=== PATIENT | male | born 1940 | race Caucasian/White ===

== ENCOUNTER 2018-01-19 09:31 | Outpatient (REF) | payer OTHER, SELFPAY ==
[2018-01-19 13:01] LABS: Anion Gap 6.2 mmol/L (3-11); BUN 18 mg/dL (7-18); CO2 32.8 mmol/L (21.0-32.0); CREATININE 0.96 mg/dL (0.70-1.30); Calcium 9.6 mg/dL (8.5-10.1); Chloride 101 mmol/L (98-107); Glucose 106 mg/dL (70-100); Magnesium 1.9 mg/dL (1.8-2.4); Sodium 140 mmol/L (136-145)
== END 2018-01-19 09:51 ==
LOC: NCHCN 09:31
PROVIDERS: PCP Family Medicine; Visit Provider Family Medicine
DX: I10 Essential (primary) hypertension (principal); E83.42 Hypomagnesemia
CPT/HCPCS: 80048; 83735

== ENCOUNTER 2018-01-21 14:34 | Outpatient (CLI) | payer OTHER, SELFPAY ==
--- NOTE | 2018-01-21 15:33 | DI.MRI_ITS ---
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 T 1, T 2 and STIR sagittal and T 1 and T 2 axial sequences were performed. Prominent sigmoid diverticulosis is incidentally noted. The prostate is noted to be quite enlarged and partially included on the images, measuring 7.5 cm. in cephalocaudad dimension by 3.7 cm. AP. The aorta is normal in diameter. At T 12-L 1, there are facet degenerative changes but no significant neural foraminal narrowing or central canal stenosis. There is minimal disc bulging. At L 1-2, there is minimal disc bulging and mild facet degenerative changes. At L 2-3, there is moderate broad based disc bulging as well as endplate osteophytes. There are facet degenerative changes which combine with the disc bulging to produce a mild degree of central canal stenosis as well as moderate bilateral neural foraminal narrowing. At L 3-4, there is moderate loss of disc height, endplate osteophytes and concentric disc bulging. There is a superimposed focal central disc protrusion which causes severe narrowing of the central canal. There are facet degenerative changes and ligamentous hypertrophy which also contribute to the central canal stenosis. There is moderate bilateral neural foraminal narrowing. At L 4-5, there is loss of disc height and broad based disc osteophytes. There is a small central and slightly right sided disc protrusion which combines with facet degenerative change and ligamentous hypertrophy to cause moderate central canal stenosis. There is mild neural foraminal narrowing. At L 5-S 1, there is disc bulging asymmetric toward the right. There are mild facet degenerative changes. There is mild right neural foraminal narrowing and no central canal stenosis. IMPRESSION: Multi level degenerative disc changes. There is a central disc herniation at L 3-4 causing severe central canal stenosis. There is a small central disc herniation at L 4-5 contributing to moderate central canal stenosis.
== END 2018-01-21 14:54 ==
PROVIDERS: PCP Family Medicine; Visit Provider Family Medicine
DX: M47.896 Other spondylosis, lumbar region (principal); M51.26 Other intervertebral disc displacement, lumbar region; M51.36 Other intervertebral disc degeneration, lumbar region; M48.07 Spinal stenosis, lumbosacral region; N40.0 Benign prostatic hyperplasia without lower urinary tract symptoms; K57.30 Diverticulosis of large intestine without perforation or abscess without bleeding
CPT/HCPCS: 72148

== ENCOUNTER 2018-05-31 15:01 | Outpatient (REF) | payer MEDICARE, OTHER, SELFPAY ==
[2018-05-31 18:15] LABS: HGB 14.5 g/dL (13.5-17.5); Mean Corp. HGB Concentration 34.5 g/dL (32.0-36.0); Mean Corpuscular Hemoglobin 31.5 pg (27.0-33.0); Mean Corpuscular Volume 91.1 fL (80-95); Mean Platelet Volume 9.9 fL (8.0-11.0); Platelet Count 323 x1000/uL (130-400); RBC 4.61 m/cumm (4.50-6.00); RBC Distribution Width 12.6 % (11.8-14.1); White Blood Cell Count 8.73 k/cumm (4.4-10.8)
[2018-05-31 18:28] LABS: Anion Gap 9.9 mmol/L (3-11); BUN 14 mg/dL (7-18); CO2 28.1 mmol/L (21.0-32.0); CREATININE 0.99 mg/dL (0.70-1.30); Calcium 8.9 mg/dL (8.5-10.1); Chloride 102 mmol/L (98-107); Glucose 101 mg/dL (70-100); Magnesium 1.8 mg/dL (1.8-2.4); Potassium 3.9 mmol/L (3.5-5.1); Sodium 140 mmol/L (136-145)
== END 2018-05-31 15:21 ==
LOC: NCHCN 15:01
PROVIDERS: PCP Family Medicine; Visit Provider Family Medicine
DX: E83.42 Hypomagnesemia (principal); Z01.818 Encounter for other preprocedural examination
CPT/HCPCS: 80048; 85027; 83735

== ENCOUNTER 2018-08-03 00:44 | Outpatient (CLI) | payer MEDICARE, OTHER, SELFPAY ==
[2018-08-03] MEDS: Normal Saline Flush 10 ML SYR IVP (10:56)
[2018-08-03] MEDS: Gadoterate meglumine 20 ML VIAL 18 ML IVP (10:57)
--- NOTE | 2018-08-03 11:28 | DI.MRI_ITS ---
SYMPTOMS/DIAGNOSIS: PARESTHESIA OF LOWER EXTREMITY, R20.2, LOWER EXTREMITY PAIN MRI OF THE LUMBAR SPINE: Comparison is made with January,. The patient is status post surgery at L4-5 and L5-S1. T1, T2, STIR sagittal and T1 and T2 axial and pre and post gadolinium T1 axial and sagittal sequences were performed. At L2-3, there is moderate loss of disc height, and broad-based disc bulging and small endplate osteophytes, as well as facet degenerative changes and ligamentous hypertrophy; the findings combine to produce moderate central canal stenosis and moderate neural foraminal narrowing. The central canal stenosis appears to have increased when compared with the previous exam. At L3-4, there has been decrease in size of the central disc herniation; however, a central disc protrusion does remain present. There is moderate to severe central canal stenosis, which appears improved when compared with the previous exam. Facet degenerative changes again contribute to bilateral neural foraminal narrowing. There has been no significant change in the small central disc protrusion at L4- 5, there is stable central canal stenosis and neural foraminal narrowing. The L5-S1 level is unremarkable. The conus medullaris appears intact. There is post surgical enhancement in the posterior soft tissues at the L4 and L5 levels. There is no evidence of osteomyelitis or discitis. Fluid is seen between the spinous processes of L3-L4 and L4-L5. There is high signal on T1 and T2 weighted images in the L4 vertebral body without abnormal STIR signal. The findings could represent underlying hemangioma or Paget's disease. The remaining vertebral bodies show mild red marrow reconversion, also unchanged. IMPRESSION: Mild improvement status post surgery and degree of central canal stenosis at L4-5. Stable appearance of L3-4 central disc protrusion and central canal stenosis. There is no evidence of a new disc herniation. There is enhancement at the postsurgical site.
== END 2018-08-03 01:04 ==
PROVIDERS: PCP Family Medicine; Visit Provider Physician Assistant Surgical
DX: R20.2 Paresthesia of skin (principal); M79.604 Pain in right leg; M79.605 Pain in left leg; Z98.890 Other specified postprocedural states
CPT/HCPCS: 72158

== ENCOUNTER 2019-11-15 18:33 | Outpatient (REF) | payer MEDICARE, OTHER, SELFPAY ==
[2019-11-15 18:47] LABS: Anion Gap 8.5 mmol/L (3-11); BUN 17 mg/dL (7-18); CO2 28.5 mmol/L (21.0-32.0); CREATININE 1.26 mg/dL (0.70-1.30); Calcium 9.3 mg/dL (8.5-10.1); Chloride 105 mmol/L (98-107); Estimated GFR 55.49 (mL/min/1.73m2); Glucose 89 mg/dL (74-106); Magnesium 2.1 mg/dL (1.8-2.4); Potassium 3.9 mmol/L (3.5-5.1); Sodium 142 mmol/L (136-145)
== END 2019-11-15 18:53 ==
LOC: NCHCN 18:33
PROVIDERS: PCP Family Medicine; Visit Provider Family Medicine
DX: E83.42 Hypomagnesemia (principal); I10 Essential (primary) hypertension
CPT/HCPCS: 80048; 83735

== ENCOUNTER 2020-04-04 17:27 | Inpatient (IN) | payer MEDICARE, OTHER, SELFPAY ==
[2020-04-04 17:36] VITALS: BP 149/114; PULSE 80; RESP 16; TEMP 36.6; O2SAT 96
--- NOTE | 2020-04-04 17:39 | ED.GENADUL_ITS ---
Discharge Plan Disposition Patient Disposition: [facility] INPATIENT Condition: Poor Discharge Details Chief Complaint: Abd Prob Clinical Impression: Diverticulitis of large intestine with perforation Admit Date/Time: 04/04/20 18:16 Admit Provider: Manjula Stahl Attending Provider: Manjula Stahl Primary Care Provider: Behzad Seals ED Provider: Karly Castro Medical Decision Making Patient is a pleasant 80-year-old gentleman presenting today with chief c omplaint of left lower quadrant pain. Patient was seen at urgent care today for the same. Patient was having the intermittent abdominal pain for the past few months. However, the pain has become more persistent in recent days. He denies any fevers or chills. No change in bowel or bladder habits. Denies any blood in his stool, blood in his urine or dark stools. No previous abdominal surgerie s. He has not had pain like this historically. Urgent care provider ordered outpatient labs and imaging. Was significant for white count of 10.8 and a CRP of 9.82. CT scan was obtained showing diverticulitis with question of focal perforation. Nurse partition evaluated or sent patient in here for admission and IV antibiotics. Has not received any antibiotics as of yet. Spoke with Dr. Stahl, general surgeon, who evaluated the patient feels that admission for IV antibiotics would be appropriate. Patient does have an allergy to penicillin. He reports a rash with penicillin. He states that he has had confirmatory allergy testing. We will place patient on Flagyl. Patient declines any analgesics. Will obtain rapid Covid testing. Patient admitted under the surgical service for continued treatment of his possibly ruptured diverticulitis. HPI General Mode of arrival: ambulatory . Date/Time Provider Initiated Documentation: 04/04/20 17:39 . Limitations to Documentation: no limitations . Information obtained by: patient and RN/MD (spoke with DISH WASHER who saw her initially ) . History of Present Illness 80 year old M presents to the emergency department with the chief complaint of LLQ pain, described as moderate, with intensity rated at 5. Quality is described as aching, and is localized to the abdomen. Patient reports no radiation. Patient started experiencing this month(s) and it has been intermittent (has been more persistent over the past few days). No relieving factors improve symptom(s), No exacerbating factors reported . Patient notes no other symptoms.. Patient did receive the following treatments prior to arrival, none Related Data Home Medications Medication Instructions Recorded Confirmed atorvastatin 40 mg PO .QHS 04/04/20 04/04/20 cholecalciferol (vitamin D3) 2,000 unit PO DAILY 04/04/20 04/04/20 [Vitamin D3] fluticasone propionate 1 spray INTRANASAL BID 04/04/20 04/04/20 lisinopril-hydrochlorothiazide 1 tab PO DAILY 04/04/20 04/04/20 magnesium, potassium aspartate 1 cap PO DAILY 04/04/20 04/04/20 [Potassium, Magnesium Aspartat] multivitamin,ts-cdtq-Vb-FA-min 1 tab PO DAILY 04/04/20 04/04/20 [Multivitamin And Mineral] omega-3 fatty acids 1,000 mg PO DAILY 04/04/20 04/04/20 primidone 100 mg PO .QHS 04/04/20 04/04/20 propranolol 60 mg PO DAILY 04/04/20 04/04/20 Allergies Allergy/AdvReac Type Severity Reaction Status Date / Time Penicillins Allergy Unverified 04/04/20 17:41 Review of Systems Constitutional Constitutional: Reports as per HPI, Denies chills, Denies fatigue, Denies fever(s) and Denies headache(s) ENT Ears, Nose, Mouth, and Throat: Denies headache(s) Cardiovascular Cardiovascular: Reports as per HPI, Denies chest pain and Denies dyspnea Respiratory Respiratory: Reports as per HPI, Denies cough and Denies dyspnea Gastrointestinal Gastrointestinal: Reports as per HPI Genitourinary Genitourinary: Denies system reviewed and no additional complaints, except as documented (patient denies any change in urinary habits) Musculoskeletal Musculoskeletal: Reports as per HPI and Denies back pain Integumentary/Breasts Skin/Breast: Reports as per HPI and Denies rash Neurologic Neurologic: Reports as per HPI and Denies headache(s) Endocrine Endocrine: Denies fatigue [facility] Medical History Diverticulosis Social History Smoking/Tobacco Use Status: Never Smoking risk assessment performed?: Yes Drug use: Never Substance use type: does not use Do you feel safe at home: Yes Do you feel safe in your relationship?: Yes Exam Const General: cooperative, healthy appearing, comfortable, no acute distress and well developed Nutritional Appearance: average body habitus and well nourished Orientation: alert and awake [facility] Head: normal to inspection Mouth: moist mucous membranes Resp Effort & Inspection: normal respiratory effort, able to speak in complete sentences and no respiratory distress Auscultation: clear to auscultation bilaterally, no rales, no rhonchi and no wheezes Cardio Rate: regular rate Rhythm: regular rhythm Heart Sounds: S1 normal and S2 normal GI Inspection: normal to inspection, no edema, non-distended and no visible herniation Palpation: soft, no hepatosplenomegaly, no guarding, no hernias, no pulsatile masses, not rigid, tender in the LLQ; not at McBurney's point and with no rebound tenderness and No ascites Percussion: normal to percussion Auscultation: normal bowel sounds Back/Spine/Pelvis Back: no CVA tenderness Skin General skin exam: no rashes or lesions noted Trauma: no lacerations or abrasions Neuro General: patient alert and patient awake Cognition: normal cognition Speech: speech normal Gait: normal gait Psych Appearance: grossly normal and well kempt Mental Status: mental status grossly normal Speech and Movement: speech and movement normal
--- NOTE | 2020-04-04 17:49 | HPE_ITS ---
Date of service: 04/04/20 Time of Service: 17:49 Assessment and Plan Assessment and plan (1) Diverticulitis of large intestine with perforation: Status: Acute Assessment and plan: 80 year old male with 1 week history of LLQ pain that has been getting worse. He was seen in the [facility] and sent for a CT [place] and labs. CT scan revealed diverticulitis with possible small perforation which is contained. He also is noted to have an enlarged prostate. Will admit for IV antibiotics NPO IV hydration Nausea medication and pain medications Repeat labs in am I spent 35 minutes in reviewing the record, seeing the patient and documenting in the medical record. Qualifiers: Diverticulitis bleeding: without bleeding Qualified Code(s): K57.20 - Diverticulitis of large intestine with perforation and abscess without bleeding History of Present Illness History of Present Illness Chief Complaint: LLQ pain Consults Consult date: 04/04/20 Requesting physician: Karly Castro Narrative: .Mr. Orozco is a pleasant 80 year old male who was seen at [facility] today for ongoing abdominal pain. He states he has been having intermittent pain that over the last week has worsened. It was bad enough today that he went to the Urgent Care. They ordered labs which showed a mild increase in his WBC count, CRP was elevated at >9. CT scan was done and showed extensive divrticulosis with diverticulitis and possible contained perforation. I reviewed the outpatient labs and CT scan. He denies N/V. He denies chest pain. He is hypertensive in the ER. He has never had a colonoscopy before. He denies any other health issues. He does not take any medications. Review of Systems Constitutional Constitutional: Denies fatigue, Denies fever(s), Denies headache(s) and Denies weight loss Eyes Eyes: Denies change in vision ENT Ears, Nose, Mouth, and Throat: Denies change in voice, Denies headache(s) and Denies hoarseness Cardiovascular Cardiovascular: Denies chest pain, Denies irregular heart rhythm, Denies palpitations and Denies dyspnea Respiratory Respiratory: Denies cough and Denies dyspnea Gastrointestinal Gastrointestinal: Reports as per HPI, Denies dyspepsia and Denies heartburn Genitourinary Genitourinary: Reports system reviewed and no additional complaints, except as documented Musculoskeletal Musculoskeletal: Reports system reviewed and no additional complaints, except as documented Integumentary/Breasts Skin/Breast: Reports system reviewed and no additional complaints, except as documented Neurologic Neurologic: Reports system reviewed and no additional complaints, except as documented and Denies headache(s) Psychiatric Psychiatric: Reports system reviewed and no additional complaints, except as documented Endocrine Endocrine: Reports system reviewed and no additional complaints, except as documented, Denies fatigue and Denies palpitations [facility] Medical History (Updated 04/04/20 @ 17:56 by Manjula Stahl MD) Diverticulosis Social History Smoking/Tobacco Use Status: Never Smoking risk assessment performed?: Yes Drug use: Never Substance use type: does not use Do you feel safe at home: Yes Do you feel safe in your relationship?: Yes Meds Home Medications and Allergies Home Medications Medication Instructions Recorded Confirmed Type atorvastatin 40 mg PO .QHS 04/04/20 04/04/20 History cholecalciferol (vitamin D3) 2,000 unit PO DAILY 04/04/20 04/04/20 History [Vitamin D3] fluticasone propionate 1 spray INTRANASAL BID 04/04/20 04/04/20 History lisinopril-hydrochlorothiazide 1 tab PO DAILY 04/04/20 04/04/20 History magnesium, potassium aspartate 1 cap PO DAILY 04/04/20 04/04/20 History [Potassium, Magnesium Aspartat] multivitamin,cl-cmoo-Vm-FA-min 1 tab PO DAILY 04/04/20 04/04/20 History [Multivitamin And Mineral] omega-3 fatty acids 1,000 mg PO DAILY 04/04/20 04/04/20 History primidone 100 mg PO .QHS 04/04/20 04/04/20 History propranolol 60 mg PO DAILY 04/04/20 04/04/20 History Allergies Allergy/AdvReac Type Severity Reaction Status Date / Time Penicillins Allergy Unverified 04/04/20 17:41 Exam Const General: cooperative, comfortable and no acute distress Orientation: alert and oriented x3 HENMT Head: normocephalic and atraumatic Resp Effort & Inspection: normal respiratory effort Auscultation: clear to auscultation bilaterally Cardio Rate: regular rate Rhythm: regular rhythm Heart Sounds: no gallops, no murmurs and no rubs GI Inspection: normal to inspection Palpation: soft, no hepatosplenomegaly and tender in the LLQ; with no rebound tenderness Auscultation: hypoactive bowel sounds Results Last Vital Signs Temp 97.9 F 04/04/20 17:36 Pulse 80 04/04/20 17:36 Resp 16 04/04/20 17:36 BP 149/114 H 04/04/20 17:36 Pulse Ox 96 04/04/20 17:36 COVID-19 Screening Have you, or household traveled for leisure in last 14 days?: No Had IN PERSON contact w/suspected or confirmed C-19 person: No
[2020-04-04 18:59] VITALS: BP 138/94; PULSE 68; RESP 18; TEMP 36.7; O2SAT 95
[2020-04-04] MEDS: Normal Saline 1,000 ML 1000 ML IV (19:08)
[2020-04-04] MEDS: CIPROFLOXACIN 400 MG/200 ML BAG 200 MG IVPB (19:09)
[2020-04-04 19:17] LABS: Influenza A PCR Negative (Negative); Influenza B PCR Negative (Negative); RSV PCR Negative (Negative)
[2020-04-04 19:31] LABS: COVID-19 PCR Negative (Negative)
[2020-04-04] MEDS: Normal Saline 1,000 ML 75 ML IV (20:34)
[2020-04-04] MEDS: metroNIDAZOLE 500 MG/100 ML BAG 100 MG IVPB (20:34)
[2020-04-04 20:52] VITALS: BP 173/92; PULSE 67; RESP 18; TEMP 36.9; O2SAT 94
[2020-04-04 21:00] VITALS: BP 173/92; PULSE 67; RESP 18; TEMP 36.9; O2SAT 94
[2020-04-04 22:41] VITALS: RESP 18; O2SAT 94
[2020-04-05] VITALS (10 sets, daily range): BP systolic 130–169; BP diastolic 70–97; PULSE 66–72; RESP 16–18; TEMP 36.7–37.1; O2SAT 95–97
[2020-04-05] MEDS: metroNIDAZOLE 500 MG/100 ML BAG 100 MG IVPB ×3 (03:31→19:41)
[2020-04-05] MEDS: CIPROFLOXACIN 400 MG/200 ML BAG 200 MG IVPB ×2 (05:39→18:36)
[2020-04-05 07:06] LABS: Abs Immature Grans 0.01 10^3/uL (0.0-0.06); Absolute Basophil Count 0.06 10^3/uL (0.0-0.2); Absolute Eosinophil Count 0.32 10^3/uL (0.0-0.7); Absolute Lymphocyte Count 2.11 10^3/uL (1.2-3.4); Absolute Monocyte Count 0.65 10^3/uL (0.1-0.8); Absolute Neutrophil Count 3.49 10^3/uL (1.2-6.7); Basophils % 0.9; Eosinophils % 4.8; HCT 40.1 % (40.0-50.0); HGB 13.8 g/dL (13.5-17.5); Immature Grans % 0.2; Lymphocytes % 31.8; MCH 31.9 pg (27.0-33.0); MCHC 34.4 % (32.0-36.0); MCV 92.8 fL (80-95); Monocytes % 9.8; Neutrophils % 52.5; Nucleated RBC 0 %; Platelet Count 269 10^3/uL (130-400); RBC 4.32 10^6/uL (4.36-5.78); RDW 11.9 % (11.8-14.1); RDW-SD 41.3 fL; WBC 6.64 10^3/uL (4.4-10.8)
--- NOTE | 2020-04-05 08:05 | PDOC.CMIN ---
- If Service Date Differs Date of service: 04/05/20 Time of Service: 08:05 Care Management Initial Assess REASON FOR HOSPITALIZATION:: Diverticulitis with microperforation PAST MEDICAL HISTORY/PAST SURGICAL HISTORY:: Diverticulosis PREVIOUS FUNCTIONAL STATUS/SOCIAL/FAMILY SUPPORTS:: Joesph resides with his , [facility] in [place], [place]. He is independent at baseline in the community. CURRENT FUNCTIONAL STATUS:: Joesph was sitting up on his bed when CM met with him. He reported things were going well at home, but they were all concerned about him being in the hospital. When you get to be my age people think you are going to . He reported feeling good about his health and only wishing he could be more active and be able to get out of [facility] for awhile. This is why he is advocating for getting his second dose of covid tomorrow so he can plan a trip out of town. ADVANCE DIRECTIVES:: None on file at [facility]. Has patient been provided with info about the portal/API?: Yes Did the patient sign up for the portal?: No CODE STATUS:: Full Code INSURANCE COVERAGE / FINANCIAL ISSUES:: [employer]. [employer]. [place] CURRENT HOME/COMMUNITY SERVICES/EQUIPMENT:: No current services or equipment. PRIMARY CARE PHYSICIAN:: Behzad Seals MD. POTENTIAL DISCHARGE NEEDS:: Follow up appointments. Joesph is due for his second Moderna dose tomorrow, 04/06/20 at [facility] in [facility]. CM outreached to the pharmacy who reported they were unable to release the dose to [facility]. CM emailed Dr. Lema, Dr. Orellana and Vaccine senior clinical data coordinator, Henry Coronel to inquire if additional dose would be available for Joesph for tomorrow. CM continues to follow. PATIENT/FAMILY EDUCATION NEEDS:: Review discharge instructions, discuss Ask Me Three. ANTICIPATED BARRIERS TO DISCHARGE:: None identified at this time. TRANSPORTATION:: Via private vehicle with his . PLAN:: Joesph remains on IV ABX and clear liquids at this time. He will return home when ready per MD, he will follow up with his PCP and plan of care as prescribed. He will transport via private vehicle with his , [facility]. CM continues to follow.
--- NOTE | 2020-04-05 08:56 | W.PM.PROGNOT ---
Date of Service Date of service: 04/05/20 Time of Service: 08:57 Assessment and Plan Assessment and plan (1) Diverticulitis of large intestine with perforation: Status: Acute Assessment and plan: Doing well on clear liquids and antibiotics. Labs are normal today. CRP is pending. Continue supportive care. Resume BP meds Patient is post to get his Covid vaccine tomorrow. He can still receive the vaccine. We will need to work out logistics. Qualifiers: Diverticulitis bleeding: without bleeding Qualified Code(s): K57.20 - Diverticulitis of large intestine with perforation and abscess without bleeding (2) HTN (hypertension): Status: Chronic (3) Insomnia: Status: Acute (4) Elevated cholesterol: Status: Chronic Subjective Subjective Interval history since last seen: Patient says he is feeling better today. He has minimal pain. He is tolerating clear liquids. He is passing gas but not had any stool. no headaches. No CP or SOB. no productive cough. no dysuria. no leg pain or swelling. Exam Const General: cooperative, healthy appearing, comfortable and no acute distress Nutritional Appearance: average body habitus Orientation: alert, awake and oriented x3 Other: No jaundice or thrush Resp Effort & Inspection: normal respiratory effort and able to speak in complete sentences Auscultation: clear to auscultation bilaterally, no rales, no rhonchi and no wheezes Cardio Palpation: normal PMI Rate: regular rate Other: No lower extremity edema swelling or pain. Objective Last Vital Signs Temp 36.7 C 04/05/20 07:51 Pulse 72 04/05/20 07:51 Resp 18 04/05/20 07:51 BP 160/92 H 04/05/20 07:52 Pulse Ox 96 04/05/20 07:51 Laboratory Results - last 24 hr 04/04/20 04/05/20 18:20 06:50 WBC 6.64 D RBC 4.32 L Hgb 13.8 Hct 40.1 MCV 92.8 MCH 31.9 MCHC 34.4 RDW 11.9 Plt Count 269 MPV 9.0 Immature Gran % 0.2 Neutrophils % 52.5 Lymphocytes % 31.8 Monocytes % 9.8 Eosinophils % 4.8 Basophils % 0.9 Nucleated RBC % 0 Absolute Neutrophils 3.49 Absolute Lymphocytes 2.11 Absolute Monocytes 0.65 Absolute Eosinophils 0.32 Absolute Basophils 0.06 COVID-19 Source Nasopharyx SARS-CoV-2 (PCR) Negative Influenza Type A (PCR) Negative Influenza Type B (PCR) Negative RSV (PCR) Negative
[2020-04-05] MEDS: Lisinopril 20 MG TAB PO (09:54)
[2020-04-05] MEDS: hydroCHLOROthiazide 12.5 MG TAB PO (09:55)
[2020-04-05] MEDS: Propranolol 60 MG CAPCR PO (10:35)
[2020-04-05 10:46] LABS: C-Reactive Protein 7.02 mg/dL (0.0-0.3)
--- NOTE | 2020-04-05 11:37 | CHAPLAIN ---
Joesph was reading the newspaper when I visited. He said he is feeling much better than yesterday. He's been in touch with his family by phone. He said they are more concerned than he is because they can't see him. I explained my role and offered support.
[2020-04-05] MEDS: Normal Saline 1,000 ML 75 ML IV (12:27)
[2020-04-06 00:30] VITALS: BP 167/83; PULSE 67; RESP 20; TEMP 36.5; O2SAT 94
[2020-04-06] MEDS: metroNIDAZOLE 500 MG/100 ML BAG 100 MG IVPB ×3 (03:36→20:26)
[2020-04-06] MEDS: Normal Saline 1,000 ML 75 ML IV (05:18)
[2020-04-06] MEDS: CIPROFLOXACIN 400 MG/200 ML BAG 200 MG IVPB ×2 (05:19→17:15)
[2020-04-06 07:38] VITALS: BP 170/101; PULSE 62; RESP 18; TEMP 37; O2SAT 96
[2020-04-06] MEDS: Propranolol 60 MG CAPCR PO (08:55)
[2020-04-06] MEDS: Lisinopril 20 MG TAB PO (08:55)
[2020-04-06] MEDS: hydroCHLOROthiazide 12.5 MG TAB PO (08:55)
[2020-04-06 08:59] LABS: C-Reactive Protein 2.98 mg/dL (0.0-0.3)
--- NOTE | 2020-04-06 11:14 | W.NUTRFU ---
Date of service: 04/06/20 Time of Service: 11:15 Nutritional Follow up NOTE: 80 year old male admitted with diverticulitis with perforation. BMI indicates mild obesity. PMH: HTN, HLD. CUrrently tolerating clear liquids, diet to be advanced per MD. Will continue to follow. Time Spent in Nutritional Counseling and Treatment: 0
--- NOTE | 2020-04-06 13:54 | W.PM.PROGNOT ---
Date of Service Date of service: 04/06/20 Time of Service: 13:55 Assessment and Plan Assessment and plan (1) Elevated cholesterol: Status: Chronic (2) Insomnia: Status: Acute (3) HTN (hypertension): Status: Chronic (4) Diverticulitis of large intestine with perforation: Status: Acute Assessment and plan: tolerating full liquids. no pain or fevers CRP 2.9 d/c home in am. full 7 days of abx. cipro/flagyl. will need a CE. (he has never had one before) low fiber diet supportive care Qualifiers: Diverticulitis bleeding: without bleeding Qualified Code(s): K57.20 - Diverticulitis of large intestine with perforation and abscess without bleeding (5) COVID-19 vaccine administered: Status: Acute Assessment and plan: pt received second dose today No reaction Subjective Subjective Interval history since last seen: pt is feeling better today. no pain. tolerating clears. Had some nausea this am. resolved this evening. He had a small soft, but formed brown BM. no headaches. No CP or SOB. no productive cough. no dysuria. no leg pain or swelling. He is hungry and would liek more to eat. We were able to get him his second covid vaccine today- no reactions so far. Exam HENMT Other: no thrush.no jaundice/sclera clear Resp Effort & Inspection: normal respiratory effort and able to speak in complete sentences Auscultation: clear to auscultation bilaterally Cardio Rate: regular rate Rhythm: regular rhythm GI Palpation: soft Auscultation: normal bowel sounds Other: no pain Neuro General: patient alert, patient awake, patient oriented x3 and oriented Cranial Nerves: CN's II-XI intact bilaterally Cognition: normal cognition Extrem General: no clubbing, cyanosis or edema Objective Last Vital Signs Temp 37.0 C 04/06/20 07:38 Pulse 62 04/06/20 07:38 Resp 18 04/06/20 07:38 BP 170/101 H 04/06/20 07:38 Pulse Ox 96 04/06/20 07:38 Laboratory Results - last 24 hr 04/06/20 08:30 C-Reactive Protein 2.98 H
[2020-04-06 15:17] VITALS: BP 125/70; PULSE 56; RESP 16; TEMP 36.6; O2SAT 97
--- NOTE | 2020-04-06 16:45 | PDOC.CMPRO ---
Care Management Progress Note S/O: Joesph was sitting up in his chair when CM met with him. He shared hopes for being able to return home tomorrow and to have his diet advanced as soon as possible. CM found Dr. Orellana who was entering the OR but provided verbal for MILO Cotton to advance diet to full liquid. CM notified [employer]xture Repairer of advancement and requested items to be brought to Joesph. CM supported coordination of 2nd moderna dose to arrive from [facility] to the [facility] to be labeled, confirmed and released for DOROTHEA Bianchi to provide vaccine to Joesph. CM continues to follow. A: 80 year old male admitted to [facility] 04/04/20 for Diverticulitis with microperforation P: Joesph will return home when ready per MD. Joesph remains on IV ABX and clear liquids at this time. He will return home when ready per MD, he will follow up with his PCP and plan of care as prescribed. He will transport via private vehicle with his , Emerald. CM continues to follow.
--- NOTE | 2020-04-06 19:55 | NUR.NOTE ---
Patient was able to receive his 2nd moderna Covid Vaccine. He signed the consent understood the risk and side effects. he was monitored for 15 minutes afterward for adverse effects, with none noted. His diet advanced to full liquids which was tolerated well by patient. He was IID by order of Dr. street. Patient to probably [place] home tomorrow. Nursing Note:
[2020-04-06] MEDS: Normal Saline Flush 10 ML SYR IVP (20:26)
--- NOTE | 2020-04-06 21:20 | W.PM.DS.N ---
Date of service: 04/07/20 Time of Service: 12:00 DS: Diagnosis Discharge Diagnosis (1) Elevated cholesterol: Status: Chronic (2) Insomnia: Status: Acute (3) HTN (hypertension): Status: Chronic (4) Diverticulitis of large intestine with perforation: Status: Acute (5) COVID-19 vaccine administered: Status: Acute Discharge Plan Disposition Patient Disposition: HOME Condition: Good Discharge Details Reason For Visit: DIVERTICULITIS WITH MICROPERFORATION Admit Date/Time: 04/06/20 10:55 Admit Provider: Manjula Stahl Attending Provider: Manjula Stahl Primary Care Provider: Behzad Seals Kinder Meds and New Rx's Prescriptions: New ciprofloxacin HCl 500 mg tablet 500 mg PO Q12H 5 Days Qty: 10 RF: 0 metronidazole [Flagyl] 500 mg tablet 500 mg PO Q8H 5 Days Qty: 15 RF: 0 Continued atorvastatin 40 mg Tablet 40 mg PO .QHS RF: 0 primidone 50 mg Tablet 100 mg PO .QHS RF: 0 omega-3 fatty acids 1,000 mg Capsule 1,000 mg PO DAILY RF: 0 lisinopril-hydrochlorothiazide 20-12.5 mg Tablet 1 tab PO DAILY RF: 0 propranolol 60 mg Capsule,Extended Release 24 Hr 60 mg PO DAILY RF: 0 magnesium, potassium aspartate 250-250 mg Capsule 1 cap PO DAILY RF: 0 fluticasone propionate 50 mcg/actuation [place],Suspension 1 spray INTRANASAL BID RF: 0 multivitamin,vg-yciv-Qy-FA-min Tablet 1 tab PO DAILY RF: 0 cholecalciferol (vitamin D3) [Vitamin D3] 50 mcg (2,000 unit) Capsule 2,000 unit PO DAILY RF: 0 Discharge Instructions Instructions: Diverticulitis (GEN), Diverticulosis (GEN), Low Fiber Diet (GEN) Additional Instructions: Called: [phone] on Thursday to make a follow-up appointment with general surgery -no straining to move bowels -Azerbaijani yogurt daily if you do not move your bowels daily take a dose of OTC milk of magnesia -It is ok to shower. -Protein supplements daily. You may find that your appetite is smaller. Eat 3-6 small meals throughout the day. It is important to drink lots of water after surgery, 6-10 glasses a day. -If you were given an incentive spirometry (breathing door to door selling agent?), continue to do this 10x/hour while awake. -We do want you up walking, at least 5-6 times per day. This is very important to prevent pneumonia and blood clots. You can climb stairs, take them slowly. -No lifting over 5 pounds. -You may find that you are very tired after surgery- this is normal. -please do not smoke for a minimum of 72 hours after surgery. Stand Alone Forms: Nursing Discharge Form Referrals: Sharona Orellana, [OSTEOPATHIC DOCTOR] - Activity:: no strenuous activity Equipment/Supplies:: No Equipment Needed Diet:: low fiber x 1 week Discharge Orders Discharge Orders: Discharge Order (Routine); Ordered 04/07/20 Ordered By: Sharona Orellana DS: Summary Time Spent with Patient providing and/or coordinating discharge services: Greater than 30 minutes Status at Discharge Functional status at discharge: independent ambulation Overall status at discharge: patient is back to baseline Mental Status: mental status grossly normal Speech and Movement: speech and movement normal Mood: congruent mood Affect: normal affect Exam Psych Mental Status: mental status grossly normal Speech and Movement: speech and movement normal Mood: congruent mood Affect: normal affect DS: Data Vitals/I&O Vitals and I&O: Vital Signs Temperature 36.6 C 04/06/20 15:17 Temperature Source Tympanic 04/06/20 15:17 Pulse 56 L 04/06/20 15:17 Pulse Rhythm Regular 04/06/20 16:22 Respiratory Rate 16 04/06/20 15:17 Respiratory Effort 04/06/20 16:22 Respiratory Depth Normal 04/06/20 16:22 Respiratory Pattern Normal 04/06/20 16:22 Blood Pressure 125/70 04/06/20 15:17 Blood Pressure Position Sitting 04/04/20 17:36 Pulse Oximetry 97 04/06/20 15:17 Oxygen Delivery Method Room Air 04/06/20 15:17 Oxygen Flow Rate 0 04/06/20 15:17 Pain Level 0 04/06/20 15:17 Comment 04/05/20 03:54 Intake & Output 04/05/20 04/06/20 04/06/20 23:59 11:59 23:59 Intake Total 1630 / 3500 2460 / 3560 1100 / 3560 Output Total 1500 / 2500 1100 / 1100 Balance 130 / 1000 1360 / 2460 1100 / 2460 Intake: IV 400 / 1700 1300 / 2400 1100 / 2400 Oral 1230 / 1800 1160 / 1160 Output: Urine 1500 / 2500 1100 / 1100 Other: Urine Color Yellow Yellow Urine Appearance Clear Clear Clear Urine Odor None Stool Size Small Stool Characteristics Liquid Voiding Methods Toilet Toilet Toilet Urinal Urinal Data Completed and Pending Labs on day of discharge: Labs from last 24 hours 04/06/20 08:30 C-Reactive Protein 2.98 H [facility] Medical History (Updated 04/06/20 @ 21:22 by Sharona Orellana DO) Diverticulosis Elevated cholesterol HTN (hypertension) Insomnia Social History Smoking/Tobacco Use Status: Never Smoking risk assessment performed?: Yes Drug use: Never Substance use type: does not use Do you feel safe at home: Yes Do you feel safe in your relationship?: Yes
[2020-04-06 23:23] VITALS: BP 126/76; PULSE 62; RESP 18; TEMP 36.7; O2SAT 95
[2020-04-07] MEDS: Normal Saline Flush 10 ML SYR IVP ×2 (04:16→08:08)
[2020-04-07] MEDS: metroNIDAZOLE 500 MG/100 ML BAG 100 MG IVPB ×2 (04:17→11:52)
[2020-04-07] MEDS: CIPROFLOXACIN 400 MG/200 ML BAG 200 MG IVPB (05:33)
[2020-04-07 06:24] VITALS: BP 130/90; PULSE 51; RESP 18; TEMP 36.6; O2SAT 93
[2020-04-07 07:25] VITALS: BP 140/96; PULSE 55; RESP 17; TEMP 36.4; O2SAT 95
[2020-04-07] MEDS: Lisinopril 20 MG TAB PO (08:07)
[2020-04-07] MEDS: hydroCHLOROthiazide 12.5 MG TAB PO (08:07)
[2020-04-07] MEDS: Propranolol 60 MG CAPCR PO (08:07)
--- NOTE | 2020-04-07 18:25 | PDOC.CMDIS ---
- If Service Date Differs Date of service: 04/07/20 Time of Service: 18:25 LACE Index Scoring Tool - Questions: Length of Stay (in days): 3 Acuity (Admit via E.D.?): Yes E.D. Visits: 1 - Answers: Total Score: 7 Risk of Readmission: Low Risk Care Management Discharge Reason for Hospitalization: Diverticulitis with microperforation Discharge Plan: Joesph will return home today with no additional services. He will be transported via private vehicle by family. He will follow up with his PCP and discharge plan of care. Patient/Family Education Needs: Review discharge instructions regarding activity levels and medications, discussion of self care needs including ask me three and goals of care.
== END 2020-04-07 13:30 | disposition home or self-care (01) | DRG 392 ==
LOC: ER 18:52 → MS 19:19
PROVIDERS: Surgery; Admitting Provider Surgery; Emergency Provider Physician Assistant; PCP Family Medicine; Visit Provider Surgery
DX: K57.20 Diverticulitis of large intestine with perforation and abscess without bleeding (principal); I10 Essential (primary) hypertension; G47.00 Insomnia, unspecified; Z23 Encounter for immunization; E78.00 Pure hypercholesterolemia, unspecified
CPT/HCPCS: 36415; 80048; 85027; 96361; 96365; 99220; 99223; 99224; 99231; 99239; 99285; 74177; 85025; 86140; 94640; 94667; 99284; J0744; J3490

== ENCOUNTER 2020-04-04 19:18 | Outpatient (CLI) | payer MEDICARE, OTHER, SELFPAY ==
--- NOTE | 2020-04-04 10:30 | DI.CT_ITS ---
EXAM: CT ABDOMEN PELVIS W CLINICAL HISTORY: LLQ ABD PAIN R10.32, R/O DIVERTICULITIS. TECHNIQUE: Imaging Protocol: Axial computed tomography images with coronal and sagittal reformatted images were created and reviewed CONTRAST MATERIAL: Intravenous: Omnipaque 100cc Oral: None COMPARISON: No exams were available for comparison FINDINGS: VISUALIZED LUNG BASES: No nodules nor pleural effusions evident. ABDOMEN: There is no ascites. LIVER: There are no obvious focal hepatic lesions evident . GALLBLADDER/BILIARY: No obvious gallbladder pathology. CBD is not dilated. PANCREAS: No evidence of pancreatic mass nor dilatation of the pancreatic duct. SPLEEN: Spleen is not enlarged. No obvious intrasplenic lesions. Splenic and portal veins are paten t. ADRENALS: There are no significant adrenal masses. KIDNEYS:No cysts evident. No solid renal masses. No calculi nor hydronephrosis.. ABDOMINAL AORTA: There is mild fusiform dilatation of the infrarenal abdominal aorta with maximum ext ernal diameter of 2 point 8 cm. There is also mild arterial megaly of the common iliac arteries. LYMPH NODES:There is no retroperitineal nor paraaortic adenopathy. ABDOMINAL WALL/GI: No evidence of significant anterior abdominal wall hernia. No bowel obstruction. PELVIS: GI: No evidence of appendicitis.There is diffuse thickening of the sigmoid with extensive diverticulo sis. There is evidence of acute diverticulitis in the sigmoid focal perforation. No abscess at this time. LYMPH NODES: There is no intrapelvic nor inguinal adenopathy. REPRODUCTIVE: Prostate gland is grossly enlarged. URINARY BLADDER: Urinary bladder wall is diffusely thickened but the bladder is not distended and the re are no diverticuli evident. OSSEOUS: There is a benign intraosseous hemangioma noted in the L4 vertebral body. There are no lyti c osseous lesions evident. IMPRESSION: 1. Main finding here is acute diverticulitis of the sigmoid superimposed upon extensive diverticulos is. There appears to be focal perforation. High risk for future abscess development. Aggressive th erapy recommended. 2. No evidence of appendicitis. 3. Grossly enlarged prostate gland. No bladder distension evident. There is no air-gas within the u rinary bladder lumen to suggest fistulous communication from the sigmoid. 4. There is no air-gas within the portal venous system. No evidence of intrahepatic abscess. RADIATION DOSE DELIVERED: 1,022.92mGy.cm Total DLP DATA REPOSITORY: All CT scans at this facility are submitted to the National Radiology Data Registry (NRDR) Dose Index Registry (DIR) with the [employer] (ACR). RADIATION OPTIMIZATION: All CT scans at this facility use at least one of these dose optimization te chniques: automated exposure control; mA and/or kV adjustment per patient size (includes targeted exa ms where dose is matched to clinical indication); or iterative reconstruction.
[2020-04-04 11:34] LABS: HCT 43.5 % (40.0-50.0); HGB 14.8 g/dL (13.5-17.5); MCH 31.7 pg (27.0-33.0); MCV 93.1 fL (80-95); MPV 9.1 fL (8.0-11.0); Platelet Count 308 10^3/uL (130-400); RBC 4.67 10^6/uL (4.36-5.78); RDW 12.1 % (11.8-14.1); RDW-SD 41.7 fL; WBC 10.84 10^3/uL (4.4-10.8)
[2020-04-04 11:41] LABS: Anion Gap 7.4 mmol/L (3-11); BUN 13 mg/dL (7-18); C-Reactive Protein 9.82 mg/dL (0.0-0.3); CO2 31.6 mmol/L (21.0-32.0); Calcium 8.8 mg/dL (8.5-10.1); Chloride 100 mmol/L (98-107); Glucose 102 mg/dL (74-106); Potassium 3.5 mmol/L (3.5-5.1); Sodium 139 mmol/L (136-145)
[2020-04-04] MEDS: Omnipaque 350 MG/ML 100 ML BTL IJ (13:03)
== END 2020-04-04 19:19 ==
LOC: DI 19:19
PROVIDERS: PCP Family Medicine; Visit Provider Nurse Practitioner Family
DX: R10.32 Left lower quadrant pain (principal); K57.30 Diverticulosis of large intestine without perforation or abscess without bleeding; K57.32 Diverticulitis of large intestine without perforation or abscess without bleeding; N40.0 Benign prostatic hyperplasia without lower urinary tract symptoms
CPT/HCPCS: 80048; 85027; 74177; 86140; J3490

== ENCOUNTER → 2020-04-23 09:36 | Outpatient (BNVA) | payer MEDICARE, OTHER, SELFPAY | PROVIDERS: PCP Family Medicine; Referring Provider Family Medicine; Visit Provider Surgery | DX: K57.20 Diverticulitis of large intestine with perforation and abscess without bleeding (principal); I10 Essential (primary) hypertension; G47.00 Insomnia, unspecified; E78.00 Pure hypercholesterolemia, unspecified; Z23 Encounter for immunization | CPT/HCPCS: 99212; 99213 ==

== ENCOUNTER 2020-08-11 11:51 | Emergency (ER) | payer MEDICARE, OTHER, SELFPAY ==
[2020-08-11 11:54] VITALS: BP 167/89; RESP 68; TEMP 36.2; O2SAT 94
[2020-08-11 12:06] VITALS: BP 129/65; PULSE 71; O2SAT 96
--- NOTE | 2020-08-11 12:07 | ED.GENADUL_ITS ---
Discharge Plan Disposition Patient Disposition: HOME Condition: Stable Discharge Details Clinical Impression: Diverticulitis Primary Care Provider: Behzad Seals ED Provider: Karly Castro Home Meds and New Rx's Prescriptions: New ciprofloxacin HCl [Cipro] 500 mg tablet 500 mg PO BID Qty: 14 RF: 0 metronidazole 500 mg tablet 500 mg PO TID 7 Days Qty: 21 RF: 0 Continued primidone 50 mg Tablet 100 mg PO .QHS RF: 0 omega-3 fatty acids 1,000 mg Capsule 1,000 mg PO DAILY RF: 0 lisinopril-hydrochlorothiazide 20-12.5 mg Tablet 1 tab PO DAILY RF: 0 propranolol 60 mg Capsule,Extended Release 24 Hr 60 mg PO DAILY RF: 0 magnesium, potassium aspartate 250-250 mg Capsule 1 cap PO DAILY RF: 0 multivitamin,ot-wyvm-Wp-FA-min Tablet 1 tab PO DAILY RF: 0 cholecalciferol (vitamin D3) [Vitamin D3] 50 mcg (2,000 unit) Capsule 2,000 unit PO DAILY RF: 0 Discharge Instructions Instructions: Diverticulitis (ED), Diverticulitis Diet (ED) Additional Instructions: It appears you have a recurrence of your diverticulitis on your imaging. Neal estephania, there is no evidence of perforation or complication as was found last time. Please encourage water intake. Please take the antibiotics as prescribed. These have been sent to your pharmacy. Even if symptoms improve, please take the entire course. Please begin the probiotics once again. If you develop fever/chills, inability stay hydrated, increased abdominal pain or other new/worsening symptoms, please return to the ED once again. Otherwise, please follow-up with your primary care next week for reevaluation. Referrals: Behzad Seals [Primary Care Provider] - Discharge Data Discharge Date/Time-TO BE ENTERED AT DEPARTURE: 08/11/20 14:30 Medical Decision Making Patient is a pleasant 80-year-old male presenting today with chief complaint of lower abdominal discomfort. Pain has been intermittent for the past 2 weeks. States that the pain worsens prior to urination or defecating. Relieved after these. Denies any fevers or chills. No nausea or vomiting. Denies any hematuria, melena or bright red blood per rectum. Patient was admitted here a few months ago for acute diverticulitis with associated perforation. States pain is similar but not nearly as significant. Denies increased frequency, urgency, dysuria. On exam, patient appears nontoxic. Lungs are clear, normal cardiac exam. He denies any chest pain or shortness of breath. Abdomen is benign. He does have some minimal discomfort elicited with lower abdominal pain, more so on the left than the right. Denies any testicular pain or penile pain. No CVA tenderness percussion. Differential at this time includes recurrent diverticulitis, UTI, nephrolithiasis versus other. Patient was seen at outpatient urgent care. Urine was completed without infection. Patient did not have any prostate tenderness on exam. With this, do not have indication at this time for prostatitis. Will obtain CT scan and blood work. Labs reviewed. Mild leukocytosis with a white count of 11. CMP without abnormality, lipase within normal limits. Urine significant for trace blood. Reviewed imaging, enlarge prostate is noted. Discussed with patient, as he has change in his discomfort with BM and urination, also considered possible prostatitis. Rectal exam performed. Patient ahs large prostate that is nontender. FINDINGS: Limitations: None. Liver: Normal. Gallbladder and bile ducts: Normal. Pancreas: Normal. Spleen: Normal. Adrenal glands: Normal. Kidneys and ureters: Normal. Stomach and bowel: Severe colonic diverticulosis. Thickening of the proximal sigmoid colon wall without masslike features is again noted, also now involving a short segment of the most distal descending colon. There is mild infiltration of the pericolonic fat. Overall, the findings are less prominent than those seen in March 2020 although some segments of sigmoid colon not previously involved are now affected. No pneumatosis. Unremarkable small bowel. Normal stomach. Appendix: Normal. Intraperitoneal space: No ascites, pneumoperitoneum or peritoneal lesion. Vasculature: Mild atherosclerosis of the abdominal aorta and branch vessels. The vessels have normal caliber and there are no occlusions, dissection or suspicious stenosis. Incidentally noted circumaortic left renal vein, a benign congenital variant. Mitral annulus and aortic valve calcification. Lymph nodes: None enlarged or otherwise suspicious. Urinary bladder: Normal. Reproductive: Symmetric prostate enlargement up to 6.1 x 5.5 cm measured in the axial plane. Bones/joints: No acute fracture or suspicious osseous lesion. Benign intraosseous hemangioma at L4. Soft tissues: No mass or abdominal hernia. IMPRESSION: 1. Mild, chronic recurrent uncomplicated diverticulitis seen in the setting of severe diffuse diverticulosis. 2. Incidental findings include chronic unchanged prostatomegaly and mild diffuse atherosclerosis. Discussed these findings with the patient. Encourage hydration. Will begin on oral antibiotics. Return precautions were discussed. He would follow-up with primary care next week for reevaluation. All questions concerns were addressed and he is in agreement this plan. HPI General Mode of arrival: ambulatory . Date/Time Provider Initiated Documentation: 08/11/20 12:02 . Limitations to Documentation: no limitations . Information obtained by: patient, RN notes reviewed and old records reviewed . History of Present Illness 80 year old M presents to the emergency department with the chief complaint of abdominal pain, described as mild, with intensity rated at 1. Quality is described as aching, and is localized to the abdomen. Patient reports no radiation. Patient started experiencing this week(s) and it has been intermittent. other things that improve symptom(s), (urination and defication ) Other factors that worsen symptoms (need to have BM or urinate) . Patient notes no other symptoms.. Patient did receive the following treatments prior to arrival, none Related Data Home Medications Medication Instructions Recorded Confirmed cholecalciferol (vitamin D3) 2,000 unit PO DAILY 04/04/20 08/11/20 [Vitamin D3] lisinopril-hydrochlorothiazide 1 tab PO DAILY 04/04/20 08/11/20 magnesium, potassium aspartate 1 cap PO DAILY 04/04/20 08/11/20 multivitamin,hi-ohxc-Pe-FA-min 1 tab PO DAILY 04/04/20 08/11/20 omega-3 fatty acids 1,000 mg PO DAILY 04/04/20 08/11/20 primidone 100 mg PO .QHS 04/04/20 08/11/20 propranolol 60 mg PO DAILY 04/04/20 08/11/20 ciprofloxacin HCl [Cipro] 500 mg PO BID #14 tab 08/11/20 metronidazole 500 mg PO TID 7 Days #21 tab 08/11/20 Previous Rx's Medication Instructions Recorded ciprofloxacin HCl [Cipro] 500 mg PO BID #14 tab 08/11/20 metronidazole 500 mg PO TID 7 Days #21 tab 08/11/20 Allergies Allergy/AdvReac Type Severity Reaction Status Date / Time Penicillins Allergy Unverified 04/23/20 09:39 General Stated Complaint: Abd Prob JEFFREY: 3 Review of Systems Constitutional Constitutional: Reports as per HPI, Denies chills, Denies fatigue, Denies fever(s) and Denies headache(s) ENT Ears, Nose, Mouth, and Throat: Denies headache(s) Cardiovascular Cardiovascular: Reports as per HPI, Denies chest pain and Denies dyspnea Respiratory Respiratory: Reports as per HPI, Denies cough and Denies dyspnea Gastrointestinal Gastrointestinal: Reports as per HPI Genitourinary Genitourinary: Denies system reviewed and no additional complaints, except as documented (patient denies any change in urinary habits) Musculoskeletal Musculoskeletal: Reports as per HPI and Denies back pain Integumentary/Breasts Skin/Breast: Reports as per HPI and Denies rash Neurologic Neurologic: Reports as per HPI and Denies headache(s) Endocrine Endocrine: Denies fatigue [facility] Medical History (Updated 08/11/20 @ 14:14 by OPAL Blanco) Diverticulosis Elevated cholesterol HTN (hypertension) Insomnia Social History Smoking/Tobacco Use Status: Never Smoking risk assessment performed?: Yes Drug use: Never Substance use type: does not use Do you feel safe at home: Yes Do you feel safe in your relationship?: Yes Exam Const General: cooperative, healthy appearing, comfortable, no acute distress and well developed Nutritional Appearance: average body habitus and well nourished Orientation: alert and awake HENNH Head: normal to inspection Mouth: moist mucous membranes Resp Effort & Inspection: normal respiratory effort, able to speak in complete sentences and no respiratory distress Auscultation: clear to auscultation bilaterally, no rales, no rhonchi and no wheezes Cardio Rate: regular rate Rhythm: regular rhythm Heart Sounds: S1 normal and S2 normal GI Inspection: normal to inspection, no edema and non-distended Palpation: soft, no hepatosplenomegaly, not firm, no guarding, no masses, no pulsatile masses, not rigid and tender in the LLQ (and low central abdomen) Percussion: normal to percussion Auscultation: normal bowel sounds Back/Spine/Pelvis Back: no CVA tenderness Skin General skin exam: no rashes or lesions noted Trauma: no lacerations or abrasions Neuro General: patient alert and patient awake Cognition: normal cognition Speech: speech normal Gait: normal gait Psych Appearance: grossly normal and well kempt Mental Status: mental status grossly normal Speech and Movement: speech and movement normal Course Vital Signs Vital signs: Vital Signs Temperature 36.2 C L 08/11/20 11:54 Respiratory Rate 68 H 08/11/20 11:54 Blood Pressure 167/89 H 08/11/20 11:54 Pulse Oximetry 94 08/11/20 11:54 Temperature 36.2 C L 08/11/20 11:54 Temperature Source Temporal Artery Scan 08/11/20 11:54 Respiratory Rate 68 H 08/11/20 11:54 Respiratory Effort 08/11/20 11:59 Blood Pressure 167/89 H 08/11/20 11:54 Blood Pressure Position Sitting 08/11/20 11:54 Pulse Oximetry 94 08/11/20 11:54 Oxygen Delivery Method Room Air 08/11/20 11:54 Oxygen Flow Rate 0 08/11/20 11:54 Pain Level 1 08/11/20 11:54
[2020-08-11] MEDS: Normal Saline 1,000 ML 1000 ML IV (12:22)
[2020-08-11 12:24] LABS: Abs Immature Grans 0.03 10^3/uL (0.0-0.06); Absolute Basophil Count 0.03 10^3/uL (0.0-0.2); Absolute Eosinophil Count 0.17 10^3/uL (0.0-0.7); Absolute Lymphocyte Count 2.43 10^3/uL (1.2-3.4); Basophils % 0.3; Eosinophils % 1.5; HCT 47.2 % (40.0-50.0); HGB 16.2 g/dL (13.5-17.5); Immature Grans % 0.3; Lymphocytes % 22.1; MCH 31.7 pg (27.0-33.0); MCHC 34.3 % (32.0-36.0); MCV 92.4 fL (80-95); Monocytes % 7.5; Neutrophils % 68.3; Nucleated RBC 0 %; Platelet Count 310 10^3/uL (130-400); RBC 5.11 10^6/uL (4.36-5.78); RDW 12.1 % (11.8-14.1); RDW-SD 41.4 fL
[2020-08-11 12:28] LABS: Absolute Monocyte Count 0.83 10^3/uL (0.1-0.8); Absolute Neutrophil Count 7.51 10^3/uL (1.2-6.7)
[2020-08-11 12:44] LABS: ALT 33 U/L (16-63); AST 20 U/L (15-37); Albumin 4.2 g/dL (3.4-5.0); Alkaline Phosphatase 72 U/L (46-116); Anion Gap 7.2 mmol/L (3-11); BUN 13 mg/dL (7-18); Bilirubin, Total 0.6 mg/dL (0.2-1.0); CO2 30.8 mmol/L (21.0-32.0); CREATININE 0.9 mg/dL (0.70-1.30); Calcium 9.5 mg/dL (8.5-10.1); Chloride 104 mmol/L (98-107); Glucose 95 mg/dL (74-106); Lipase 187 U/L (73-393); Magnesium 2.2 mg/dL (1.8-2.4); Sodium 142 mmol/L (136-145); Total Protein 8.2 g/dL (6.4-8.2)
[2020-08-11] MEDS: Omnipaque 350 MG/ML 100 ML BTL IJ (12:52)
[2020-08-11] MEDS: Normal Saline - Diluent 50 ML VIAL IV (12:53)
[2020-08-11 13:12] LABS: Bilirubin Negative (Negative); Blood Trace-intact (Negative); Clarity Clear (Clear); Glucose Negative (Negative); Ketones Negative (Negative); Leukocyte Esterase Negative (Negative); Nitrite Negative (Negative); Specific Gravity 1.025 (1.005-1.025); Urobilinogen 0.2 EU/dL (Up TO 0.2)
--- NOTE | 2020-08-11 13:15 | DI.CT_ITS ---
Exam(s) CT ABDOMEN PELVIS W EXAM: CT ABDOMEN PELVIS W CLINICAL HISTORY: suprapubic pain. TECHNIQUE: Imaging Protocol: Axial computed tomography images with coronal and sagittal reformatted images were created and reviewed CONTRAST MATERIAL: Intravenous: Omnipaque 350 Contrast volume:100 ml Oral: no CT CT ABDOMEN PELVIS W from 04/04/2020 FINDINGS: ABDOMEN: Lung Bases: Normal where visualized. Liver: Fatty infiltration.. No measurable mass. Gallbladder and biliary tract: No radiodense calculus or dilation. Pancreas: Normal density, no abnormal calcifications or inflammatory process. Spleen: Normal. Kidneys: Normal size, contour and axis. No radiodense stones or obstructive uropathy. No masses seen. Adrenal glands: No masses seen. Abdominal Aorta: Abdominal portion non-dilated. Circumaortic left renal vein. PELVIS: Bladder: Symmetric distention, no gross wall thickening. Bowel: Severe diverticulosis greatest in the sigmoid region. There is wall thickening and stranding of the proximal sigmoid, consistent with diverticulitis. No abscess, perforation, free fluid or free air. Normal appendix. No small bowel dilatation. Peritoneal cavity: No ascites, collection or mesenteric inflammatory response. Bones: Degenerative changes. Hemangioma L4. Reproductive organs: Markedly enlarged prostate. Lymph nodes: Unremarkable. Impression: Sigmoid diverticulitis. No perforation or abscess. Markedly enlarged prostate. RADIATION DOSE DELIVERED: 913.99mGy.cm Total DLP DATA REPOSITORY: All CT scans at this facility are submitted to the National Radiology Data Registry (NRDR) Dose Index Registry (DIR) with the [employer] (ACR). RADIATION OPTIMIZATION: All CT scans at this facility use at least one of these dose optimization te chniques: automated exposure control; mA and/or kV adjustment per patient size (includes targeted exa ms where dose is matched to clinical indication); or iterative reconstruction.
[2020-08-11 13:27] LABS: Bacteria Rare HPF (Negative); C & S Indicated? No; Casts Negative LPF (Negative); Crystals Negative HPF (Negative); Epithelial Cells Negative HPF (Negative); Mucus Negative (Negative); WBC Negative HPF (0-5)
[2020-08-11 13:45] VITALS: BP 163/76; PULSE 65; RESP 17; O2SAT 96
--- NOTE | 2020-08-11 13:55 | DI.VRAD_ITS ---
PROCEDURE INFORMATION: Exam: CT Abdomen And Pelvis With Contrast Exam date and time: 08/11/2020 12:18 PM Age: 80 years old Clinical indication: Abdominal pain; Tenderness; Lower; Patient HX: Suprapubic pain. TECHNIQUE: Imaging protocol: Computed tomography of the abdomen and pelvis with contrast. Radiation optimization: All CT scans at this facility use at least one of these dose optimization techniques: automated exposure control; mA and/or kV adjustment per patient size (includes targeted exams where dose is matched to clinical indication); or iterative reconstruction. Contrast material: OMNI-PAQUE 350; Contrast volume: 100 ml; Contrast route: INTRAVENOUS (IV); COMPARISON: CT ABDOMEN PELVIS W 04/04/2020 12:59 PM FINDINGS: Limitations: None. Liver: Normal. Gallbladder and bile ducts: Normal. Pancreas: Normal. Spleen: Normal. Adrenal glands: Normal. Kidneys and ureters: Normal. Stomach and bowel: Severe colonic diverticulosis. Thickening of the proximal sigmoid colon wall without masslike features is again noted, also now involving a short segment of the most distal descending colon. There is mild infiltration of the pericolonic fat. Overall, the findings are less prominent than those seen in March 2020 although some segments of sigmoid colon not previously involved are now affected. No pneumatosis. Unremarkable small bowel. Normal stomach. Appendix: Normal. Intraperitoneal space: No ascites, pneumoperitoneum or peritoneal lesion. Vasculature: Mild atherosclerosis of the abdominal aorta and branch vessels. The vessels have normal caliber and there are no occlusions, dissection or suspicious stenosis. Incidentally noted circumaortic left renal vein, a benign congenital variant. Mitral annulus and aortic valve calcification. Lymph nodes: None enlarged or otherwise suspicious. Urinary bladder: Normal. Reproductive: Symmetric prostate enlargement up to 6.1 x 5.5 cm measured in the axial plane. Bones/joints: No acute fracture or suspicious osseous lesion. Benign intraosseous hemangioma at L4. Soft tissues: No mass or abdominal hernia. IMPRESSION: 1. Mild, chronic recurrent uncomplicated diverticulitis seen in the setting of severe diffuse diverticulosis. 2. Incidental findings include chronic unchanged prostatomegaly and mild diffuse atherosclerosis. Dictated and Authenticated by: Morgan Celestin MD. Ordering:KENYON Brandt MD
== END 2020-08-11 14:30 | disposition home or self-care (01) ==
PROVIDERS: Emergency Provider Physician Assistant; PCP Family Medicine
DX: K57.92 Diverticulitis of intestine, part unspecified, without perforation or abscess without bleeding (principal)
CPT/HCPCS: 36415; 80053; 83690; 96360; 99285; 74177; 81003; 81015; 83735; 85025; 99283; J3490

== ENCOUNTER 2021-02-20 20:16 | Outpatient (REF) | payer MEDICARE, OTHER, SELFPAY ==
[2021-02-22 14:51] LABS: COVID-19 RT-PCR UVMMC Result Negative (Negative)
== END 2021-02-20 20:17 | disposition home or self-care (01) ==
LOC: NCHCN 20:16
PROVIDERS: PCP Family Medicine; Visit Provider Family Medicine
DX: Z20.822 Contact with and (suspected) exposure to COVID-19 (principal); R09.81 Nasal congestion
CPT/HCPCS: U0003; U0005

== ENCOUNTER 2021-03-26 19:18 | Outpatient (CLI) | payer MEDICARE, OTHER, SELFPAY ==
--- NOTE | 2021-03-26 11:55 | DI.RAD_ITS ---
Exam(s) XR SHOULDER LT COMPLETE 2+V EXAM: XR SHOULDER LT COMPLETE 2+V CLINICAL HISTORY: LT SHOULDER PAIN, MASS, M25,512, M25.812. TECHNIQUE: 2D digital imaging was performed. COMPARISON: No exams were available for comparison FINDINGS: There is no evidence of fracture or dislocation. No abnormal soft tissue calcifications. There are mild degenerative changes in the glenohumeral joint but no prominent joint space narrowing. Subacrom ial space is not diminished. Mild degenerative changes in the AC joint. Bone density is age-appropr iate. No osseous lesions. On the axial view there is a lucency anteriorly located, possibly soft tissue lesion such as lipoma. This measures approximately 6 x 4 cm. IMPRESSION: As above. If clinically indicated follow-up MRI can be performed DATA REPOSITORY: RADIATION DOSE DELIVERED:
== END 2021-03-26 19:38 ==
PROVIDERS: PCP Family Medicine; Visit Provider Nurse Practitioner Family
DX: M25.512 Pain in left shoulder (principal); M25.812 Other specified joint disorders, left shoulder; M79.89 Other specified soft tissue disorders
CPT/HCPCS: 73030

== ENCOUNTER → 2021-04-03 00:20 | Outpatient (CLI) | payer MEDICARE, OTHER, SELFPAY ==
--- NOTE | 2021-04-03 | DI.US_ITS ---
Exam(s) US SOFT TISSUE EXTREMITY EXAM: US SOFT TISSUE EXTREMITY CLINICAL HISTORY: MASS OF LEFT SHOULDER M25.812, SWELLING LEFT ARM R22.32. TECHNIQUE: Ultrasound was performed using standard protocol. COMPARISON: CR XR SHOULDER LT COMPLETE 2+V from 03/26/2021 FINDINGS: Sonographic assessment utilizing grayscale and color Doppler imaging was performed and targeted to th e area of clinical concern. There is a circumscribed homogeneous mildly hyperechoic lesion measuring 4 by 2.2 x 5.7 cm correspond ing to the palpable abnormality. 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 No invasive features are seen. M RI could be performed for further evaluation. DATA REPOSITORY:
== END ==
PROVIDERS: PCP Family Medicine; Visit Provider Nurse Practitioner Family
DX: R22.32 Localized swelling, mass and lump, left upper limb (principal)
CPT/HCPCS: 76881; 76882

== ENCOUNTER 2021-05-08 14:51 | Outpatient (REF) | payer MEDICARE, OTHER, SELFPAY ==
[2021-05-09 10:19] LABS: Lyme Ab w Rflx to Lyme Confirm Negative (Negative)
== END 2021-05-08 14:52 | disposition home or self-care (01) ==
LOC: NCHCN 14:51
PROVIDERS: PCP Family Medicine; Visit Provider Family Medicine
DX: R52 Pain, unspecified (principal)
CPT/HCPCS: 86618

== ENCOUNTER 2021-05-22 10:48 | Outpatient (REF) | payer MEDICARE, OTHER, SELFPAY ==
[2021-05-22 16:04] LABS: ESR 10 mm/hr (0-20)
== END 2021-05-22 10:49 | disposition home or self-care (01) ==
LOC: NCHCN 10:48
PROVIDERS: PCP Family Medicine; Visit Provider Family Medicine
DX: M25.50 Pain in unspecified joint (principal); M19.90 Unspecified osteoarthritis, unspecified site
CPT/HCPCS: 85652

== ENCOUNTER 2021-10-11 16:26 | Outpatient (REF) | payer MEDICARE, OTHER, SELFPAY ==
[2021-10-11 19:03] LABS: Anion Gap 7.3 mmol/L (3-11); BUN 22 mg/dL (7-18); CO2 29.7 mmol/L (21.0-32.0); CREATININE 1.1 mg/dL (0.70-1.30); Calcium 9.2 mg/dL (8.5-10.1); Chloride 103 mmol/L (98-107); Estimated GFR 68.29 (mL/min/1.73m2); Glucose 107 mg/dL (74-106); Potassium 3.7 mmol/L (3.5-5.1); Sodium 140 mmol/L (136-145)
[2021-10-14 09:28] LABS: Hepatitis C Ab w Rflx HCV PCR Negative (Negative)
== END 2021-10-11 16:27 | disposition home or self-care (01) ==
LOC: NCHCN 16:26
PROVIDERS: PCP Family Medicine; Visit Provider Family Medicine
DX: I10 Essential (primary) hypertension (principal); Z11.59 Encounter for screening for other viral diseases
CPT/HCPCS: 80048; 86803

== ENCOUNTER 2022-06-16 15:17 | Outpatient (CLI) | payer MEDICARE, OTHER, SELFPAY ==
--- NOTE | 2022-06-16 11:08 | DI.RAD_ITS ---
Exam(s) XR HUMERUS RT EXAM: XR HUMERUS RT CLINICAL HISTORY: RT UPPER ARM PAIN, M79.621. TECHNIQUE: 2D digital imaging was performed. COMPARISON: CR LEFT RIBS TO INCLUDE CXR from 12/11/2014 CR XR SHOULDER LT COMPLETE 2+V from 03/26/2021 CR XR ELBOW RT COMPLETE from 06/16/2022 FINDINGS: BONES: No acute fracture is present. There is a question of a small smoothly marginated lytic lesion in the proximal humeral shaft versus artifact. Measures approximately 15 x 7 millimeters. There are degenerative changes at the AC joint and glenohumeral joint.. SOFT TISSUE: Normal. IMPRESSION: Question of a 15 x 7 millimeter lytic lesion versus artifact in the upper humeral shaft. MRI could b e considered for further evaluation DATA REPOSITORY: RADIATION DOSE DELIVERED:
--- NOTE | 2022-06-16 11:09 | DI.RAD_ITS ---
Exam(s) XR ELBOW RT COMPLETE EXAM: XR ELBOW RT COMPLETE CLINICAL HISTORY: PAIN RT UPPER ARM, M79.621. TECHNIQUE: 2D digital imaging was performed. Three views. COMPARISON: No exams were available for comparison FINDINGS: BONES: No acute fracture is present. No bony destructive lesion is seen. Prominent enthesophyte tric eps insertion on the olecranon. JOINTS: Mild degenerative changes. The elbow is normally aligned. No joint effusion is seen. SOFT TISSUE: Normal. IMPRESSION: Prominent olecranon enthesophyte. No acute abnormality. DATA REPOSITORY: RADIATION DOSE DELIVERED:
== END 2022-06-16 15:37 ==
LOC: DI 15:19
PROVIDERS: PCP Family Medicine; Visit Provider Nurse Practitioner Family
DX: M79.621 Pain in right upper arm (principal); M25.721 Osteophyte, right elbow
CPT/HCPCS: 73060; 73080

== ENCOUNTER 2022-06-27 01:27 | Outpatient (CLI) | payer MEDICARE, OTHER, SELFPAY ==
[2022-06-27 12:55] LABS: CREATININE 1.3 mg/dL (0.70-1.30); Estimated GFR 55.53 (mL/min/1.73m2)
--- NOTE | 2022-06-27 13:00 | DI.MRI_ITS ---
Exam(s) MR UPPER EXTREMITY RT WO/W EXAM: MR UPPER EXTREMITY RT WO/W CLINICAL HISTORY: ABNL FINDINGS ON DI OF LIMBS, R93.6; RT UPPER ARM PAIN, M79.621 TECHNIQUE: Multiplanar multisequence MRI was performed without intravenous contrast. CONTRAST MATERIAL: IV Contrast: 19 mL of Dotarem contrast administered. COMPARISON: CR XR ELBOW RT COMPLETE from 06/16/2022 CR XR HUMERUS RT from 06/16/2022 FINDINGS: BONES/JOINTS: No fracture or contusion pattern. There is a nonenhancing 5 mm cortical cyst in the pro ximal humeral diaphysis corresponding to the finding seen on the x-ray. No associated soft tissue ma ss or marrow edema is seen. No other suspicious cystic or solid lesions are appreciated. Degenerati ve changes are seen at the glenohumeral and acromioclavicular joints. MUSCULOTENDINOUS STRUCTURES: The muscles show normal signal and size. No muscular fatty atrophy. SOFT TISSUES: Unremarkable. OTHER FINDINGS: Following contrast enhancement no enhancing lesions are appreciated. IMPRESSION: Benign appearing cortical cyst in the proximal right humerus. There is no associated enhancement, sof t tissue mass or marrow edema. DATA REPOSITORY:
[2022-06-27] MEDS: Normal Saline Flush 10 ML SYR IVP (13:42)
[2022-06-27] MEDS: Gadoterate meglumine 20 ML VIAL 19 ML IVP (13:43)
== END 2022-06-27 01:47 ==
LOC: DI 01:28
PROVIDERS: PCP Family Medicine; Visit Provider Nurse Practitioner Family
DX: M85.622 Other cyst of bone, left upper arm (principal)
CPT/HCPCS: 73220; 82565

== ENCOUNTER 2022-09-30 15:19 | Outpatient (REF) | payer MEDICARE, OTHER, SELFPAY ==
[2022-09-30 16:45] LABS: Bilirubin Negative (Negative); Blood Negative (Negative); Clarity Clear (Clear); Glucose Negative (Negative); Ketones Negative (Negative); Leukocyte Esterase Negative (Negative); Nitrite Negative (Negative); Specific Gravity 1.025 (1.005-1.025); Urobilinogen 0.2 mg/dL (Up to 0.2)
== END 2022-09-30 15:20 | disposition home or self-care (01) ==
LOC: NCHCN 15:19
PROVIDERS: PCP Family Medicine; Visit Provider Family Medicine
DX: R30.0 Dysuria (principal)
CPT/HCPCS: 81003

== ENCOUNTER 2023-05-16 17:59 | Emergency (ER) | payer MEDICARE, OTHER, SELFPAY ==
[2023-05-16 18:09] VITALS: BP 233/96; PULSE 56; RESP 16; TEMP 37.4; O2SAT 96
[2023-05-16 18:40] VITALS: BP 188/85; PULSE 58
--- NOTE | 2023-05-16 18:45 | DI.RAD_ITS ---
Exam(s) XR FINGER RT INDEX EXAM: XR FINGER RT INDEX CLINICAL HISTORY: D.I.P. deformity. TECHNIQUE: 2D digital imaging was performed. COMPARISON: No exams were available for comparison FINDINGS: 3 views No evidence of acute fracture or dislocation nor radiopaque foreign body. There are significant dege nerative changes in the distal interphalangeal joint and with mild flexion at this level. No erosion s. No radiopaque foreign body. Proximal interphalangeal joint and MCP joint appear unremarkable. IMPRESSION: Degenerative changes in the distal interphalangeal joint of the 2nd-index finger. Mild flexion at th is level. I note that there is also degenerative change in the DIP joints of other fingers of the right hand. DATA REPOSITORY: RADIATION DOSE DELIVERED:
--- NOTE | 2023-05-16 19:55 | ED.GENADUL_ITS ---
Discharge Plan Disposition Patient Disposition: Home Discharge Details Clinical Impression: Injury of right index finger Primary Care Provider: Behzad Seals ED Provider: Konstantin Trujillo Home Meds and New Rx's Prescriptions: No Action primidone 50 mg Tablet 100 mg PO .QHS omega-3 fatty acids 1,000 mg Capsule 1,000 mg PO DAILY lisinopril-hydrochlorothiazide 20-12.5 mg Tablet 1 tab PO DAILY propranolol 60 mg Capsule,Extended Release 24 Hr 60 mg PO DAILY magnesium, potassium aspartate 250-250 mg Capsule 1 cap PO DAILY multivitamin,ik-zfaz-Vk-FA-min Tablet 1 tab PO DAILY cholecalciferol (vitamin D3) [Vitamin D3] 50 mcg (2,000 unit) Capsule 2,000 unit PO DAILY Discharge Instructions Instructions: Finger Sprain (ED) Additional Instructions: At this time your radiological imaging showed no fracture or dislocation. Please use splint for comfort along with ice and any appropriate pgpj-hvh-vovjfte medication. Return to the emergency department immediately for any new or significant worsening of symptoms otherwise follow-up with orthopedic clinic for reassessment. Referrals: [facility] [Provider Group] (Please call the office on Thursday for arrangement of follow-up appointment) Discharge Data Discharge Date/Time-TO BE ENTERED AT DEPARTURE: 05/16/23 20:00 HPI General Mode of arrival: ambulatory . Date/Time Provider Initiated Documentation: 05/16/23 18:41 . Limitations to Documentation: no limitations . Information obtained by: patient and RN notes reviewed . History of Present Illness 83 year old M presents to the emergency department with the chief complaint of Right index finger injury, described as mild, Quality is described as aching, and is localized to the right and upper extremity. Patient started experiencing this hour(s) and it has been constant. No relieving factors improve symptom(s), Patient notes no other symptoms.. Patient did receive the following treatments prior to arrival, none Related Data Home Medications Medication Instructions Recorded Confirmed cholecalciferol (vitamin D3) 50 2,000 unit PO DAILY 04/04/20 05/16/23 mcg (2,000 unit) capsule (Vitamin D3) lisinopril 20 1 tab PO DAILY 04/04/20 05/16/23 mg-hydrochlorothiazide 12.5 mg tablet magnesium aspartate-potassium 1 cap PO DAILY 04/04/20 05/16/23 aspartate 250 mg-250 mg capsule multivitamin,op-caym-Rj-FA-min 1 tab PO DAILY 04/04/20 05/16/23 omega-3 fatty acids 1,000 mg 1,000 mg PO DAILY 04/04/20 05/16/23 capsule primidone 50 mg tablet 100 mg PO .QHS 04/04/20 05/16/23 propranolol 60 mg capsule,24 60 mg PO DAILY 04/04/20 05/16/23 hr,extended release Allergies Allergy/AdvReac Type Severity Reaction Status Date / Time Penicillins Allergy Anaphylaxis Unverified 05/16/23 18:14 General Stated Complaint: Orthopedic JEFFREY: 4 Review of Systems Musculoskeletal Musculoskeletal: Reports as per HPI, Reports deformity, Reports arthralgias, Reports joint swelling, Denies limited range of motion, Denies numbness and Reports tingling Neurologic Neurologic: Denies numbness and Reports tingling Exam Const General: cooperative, no acute distress and not ill appearing Orientation: alert, awake and oriented x3 HENMT Mouth: moist mucous membranes Resp Effort & Inspection: normal respiratory effort, able to speak in complete sentences and no respiratory distress Skin General skin exam: no rashes or lesions noted Neuro General: patient alert, patient awake, patient oriented x3, moves all extremitie s and no focal motor deficits Sensory Exam: no sensory deficits noted Extrem General: normal exam except as noted Right upper extremity: hand Details: abnormal to inspection Details: a deformity (Slight radial deviation of DIP) Location: of the 2nd digit, neuromotor exam normal, neurosensory exam normal and abnormal ROM of finger Details: pain with active ROM Location: of the 2nd digit; able to flex and extend; no tenderness Course Vital Signs Vital signs: Vital Signs Temperature 37.4 C 05/16/23 18:09 Pulse 56 L 05/16/23 18:09 Respiratory Rate 16 05/16/23 18:09 Blood Pressure 233/96 H 05/16/23 18:09 Pulse Oximetry 96 05/16/23 18:09 Temperature 37.4 C 05/16/23 18:09 Temperature Source Skin 05/16/23 18:09 Pulse 58 L 05/16/23 18:40 Respiratory Rate 16 05/16/23 18:09 Respiratory Effort Normal, Non-Labored 05/16/23 18:14 Blood Pressure 188/85 H 05/16/23 18:40 Blood Pressure Mean 124 05/16/23 18:40 Blood Pressure Position Sitting 05/16/23 18:09 Pulse Oximetry 96 05/16/23 18:09 Oxygen Delivery Method Room Air 05/16/23 18:09 Oxygen Flow Rate 0 05/16/23 18:09 Pain Level 1 05/16/23 18:09 Medical Decision Making Patient presenting to the emergency department for chief complaint of right index finger injury. Patient reports finger got stuck into a shelf and refrigerator and notes DIP deformity. States little bit of tingling but very minimal pain. Patient denies any other injury or trauma. Physical exam shows arthritic appearing joints throughout the hand and slight deformity versus swelling noted to the distal phalanx. Exam is otherwise unremarkable with sensation cap refill and movement intact. Will perform radiological imaging. Patient denies any need for pain medication. Review of radiological imaging shows degenerative findings but no obvious fracture or dislocation. Discussed this with patient and patient did state some concern due to general appearance which he reports is not normal. Patient gave verbal consent to physical manipulation of the digit which was attempted and did not improve symptoms or impairments. Patient placed in foam metal splint and on orthopedic list for follow-up as he states his normal primary care physician has switched positions and he has no follow-up availability at this time. After discussion of diagnosis and plan of care patient has no further needs, questions, or concerns and states clear understanding to return to the emergency department for any worsening symptoms. This documentation was generated using [employer] dictation system, please disregard any oddities of phrase or misspellings. Imaging Data Radiologic Study: Radiologist's impression: Exam(s) PROCEDURE INFORMATION: Exam: XR Right Finger(s) Exam date and time: 05/16/2023 6:56 PM Age: 83 years old Clinical indication: Other: Dip deformity - 2nd digit; Additional info: Tremor of right hand, PT unable to hold still. TECHNIQUE: Imaging protocol: Radiologic exam of the right fingers. Views: Minimum 2 views. COMPARISON: MR UPPER EXTREMITY RT WO/W 06/27/2022 1:04 PM FINDINGS: Bones/joints: No acute fracture. No dislocation. Multifocal arthritic degeneration. 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 Distal interphalangeal joint arthritic degeneration. There is prominent degeneration of the 2nd finger D IP joint. Dorsal osteophytes are noted. No acute skeletal change. Soft tissues: Mild soft tissue swelling of the right 2nd finger. No gas. No foreign body. IMPRESSION: 1. No acute fracture or dislocation. 2. Arthritic degenerative features. DIP joint of the right 2nd finger with severe degenerative changes and small to moderate dorsal osteophytes. 3. Scattered additional arthritic changes. Quality:SDOH Health Related Social Needs: No Data to Display PFSH All Active Problems Injury of right index finger (Acute) Diverticulitis (Chronic) HTN (hypertension) (Chronic) Insomnia (Acute) Elevated cholesterol (Chronic) COVID-19 vaccine administered (Acute) Diverticulitis of large intestine with perforation (Acute) Medical History Diverticulosis Social History Smoking/Tobacco Use Status: Never Smoking risk assessment performed?: Yes Drug use: Never Substance use type: does not use Do you feel safe at home: Yes Do you feel safe in your relationship?: Yes
--- NOTE | 2023-05-16 20:06 | DI.VRAD_ITS ---
PROCEDURE INFORMATION: Exam: XR Right Finger(s) Exam date and time: 05/16/2023 6:56 PM Age: 83 years old Clinical indication: Other: Dip deformity - 2nd digit; Additional info: Tremor of right hand, PT unable to hold still. TECHNIQUE: Imaging protocol: Radiologic exam of the right fingers. Views: Minimum 2 views. COMPARISON: MR UPPER EXTREMITY RT WO/W 06/27/2022 1:04 PM FINDINGS: Bones/joints: No acute fracture. No dislocation. Multifocal arthritic degeneration. 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 Distal interphalangeal joint arthritic degeneration. There is prominent degeneration of the 2nd finger D IP joint. Dorsal osteophytes are noted. No acute skeletal change. Soft tissues: Mild soft tissue swelling of the right 2nd finger. No gas. No foreign body. IMPRESSION: 1. No acute fracture or dislocation. 2. Arthritic degenerative features. DIP joint of the right 2nd finger with severe degenerative changes and small to moderate dorsal osteophytes. 3. Scattered additional arthritic changes. Dictated and Authenticated by: Shan Valenzuela MD. Ordering:MARIZOL Pryor MD
== END 2023-05-16 20:00 | disposition home or self-care (01) ==
PROVIDERS: Emergency Provider Nurse Practitioner Family; PCP Family Medicine
DX: S60.940A Unspecified superficial injury of right index finger, initial encounter (principal); W23.1XXA Caught, crushed, jammed, or pinched between stationary objects, initial encounter; Y93.89 Activity, other specified; Y92.010 Kitchen of single-family (private) house as the place of occurrence of the external cause
CPT/HCPCS: 99283; 73140

== ENCOUNTER → 2023-06-04 14:57 | Outpatient (BNVA) | payer MEDICARE, OTHER, SELFPAY | PROVIDERS: PCP Family Medicine; Referring Provider Family Medicine; Visit Provider Physician Assistant | DX: M15.1 Heberden's nodes (with arthropathy) (principal); R20.2 Paresthesia of skin | CPT/HCPCS: 99213 ==

== ENCOUNTER 2023-11-06 11:26 | Outpatient (REF) | payer MEDICARE, OTHER, SELFPAY ==
--- OUTSIDE RECORDS SUMMARY | 2023-11-06 11:28 | XMS_ITS | Clinical Summary ---
Author Organization [facility] Address [address] [place] [address] Care Team Providers Care Treasury Agent Name Role Phone Unavailable Primary Care Provider Unavailabl e Social History Tobacco Use Types Packs/Day Years Used Date Smoking Tobacco: Never Assessed Sex and Gender Information Value Date Recorded Sex Assigned at Not on file Gender Identity Not on file Sexual Orientation Not on file Plan of Treatment Health Maintenance Due Date Last Done Comments RSV Immunization ( o r 60+ Years) (1 - 1-dose 60+ series) 2002 Fall Risk Screening 2007 COVID-19 Vaccine (24 season) 2022
--- OUTSIDE RECORDS SUMMARY | 2023-11-06 11:28 | XMS_ITS | Encounter Summary ---
Author Organization [facility] Address [address] [place] [address] Care Team Providers Care Gauge Inspector Name Role Phone Unavailable Primary Care Provider Unavailabl e Encounter Details Date Type Department Care Team (Late st Contact Info) Description 02/21/2021 Lab Requisition [facility] Pathology & Laboratory Medicine - [facility] [address] [place] [address] Outr Resulting Lab, Provider Social History Tobacco Use Types Packs/Day Years Used Date Smoking Tobacco: Never Assessed Sex and Gender Information Value Date Recorded Sex Assigned at Not on file Gender Identity Not on file Sexual Orientation Not on file documented as of this encounter Plan of Treatment Not on file documented as of this encounter Procedures Procedure Name Priority Date/Time Associated Diagnosis Comments ZZCOVID-19 TEST [facility] PCR Today 02/20/2021 16:40 EST COVID-19 TESTING Routine 02/20/2021 16:4 0 EST documented in this encounter Results * COVID-19 TEST [facility] PCR (02/20/2021 16:40 EST) Swab 02/20/2021 16:4 0 EST 02/21/2021 17:18 EST Provider Outr Resulting Lab MICROBIOLOGY - GENERAL ORDERABLES [facility] [address] [place] [address] * COVID-19 TESTING (02/20/2021 16:40 EST) COVID-19 rt-PCR Result Negative Negative 02/22/2021 14:44 EST [facility] Comment: This test has not been FDA cleared or approved. This test has been authorized by FDA under an EUA for use by authorized laboratories. This test has been authorized only for detection of nucleic acid from 2019-nCoV, not for any other viruses or pathogens. This test is only authorized for the duration of the declaration that circumstances exist justifying the authorization of emergency use of in vitro diagnostic tests for detection and/or diagnosis of 2019-nCoV under section 564(b)(1) of Act, 21 U.S.C ?? 360bbb-3(b) (1), unless the authorization is terminated or revoked sooner. Negative results do not preclude 2019-nCoV infection and should not be used as the sole basis for treatment or other patient management decisions. Negative results must be combined with clinical observations, patient history, and epidemiological information. This test was developed and its performance characteristics determined by [facility]. It has not been cleared or approved by the US Food and Drug Administration. FDA does not require this test to go through premarket FDA review. This test is used for clinical purposes. It should not be regarded as investigational or for research. This laboratory is certified under the Clinical Laboratory Improvement Amendments (CLIA) as qualified to perform high complexity clinical laboratory testing. This test is based on the CDC COVID-19 Emergency Use Authorization (EUA) assay, with minor modification as defined by the FDA Performed on the [employer] 7 Flex RT-PCR System. Performing Lab [facility] 02/22/2021 14:44 EST [facility] Swab 02/20/2021 16:4 0 EST 02/21/2021 17:18 EST Provider Outr Resulting Lab MICROBIOLOGY - GENERAL ORDERABLES [facility] [address] [place] [address] documented in this encounter Visit Diagnoses Not on filedocumented in this encounter
--- OUTSIDE RECORDS SUMMARY | 2023-11-06 11:28 | XMS_ITS | Encounter Summary ---
Author Organization [facility] Address [facility] [place] [address] Care Team Providers Care Vibration Analyst Name Role Phone Behzad Seals MD Primary Care Provider [phone] Encounter Details Date Type Department Care Team (Late st Contact Info) Description 07/16/2023 3:15 PM EDT Office Visit Dermatology at [facility] [address] [place] [address] Jessica Zelaya MD [facility] [address] [facility] [address] History of basal cell carcinoma (BCC); Lentigines; Multiple nevi; Seborrheic dermatitis; Seborrheic keratoses; Black angioma; Actinic keratoses Social History Tobacco Use Types Packs/Day Years Used Date Smoking Tobacco: Never Smokeless Tobacco: Never Alcohol Use Standard Drinks/Week Comments Yes 0 (1 standard drink = 0.6 oz pur e alcohol) Sex and Gender Information Value Date Recorded Sex Assigned at Not on file Gender Identity Not on file Sexual Orientation Not on file documented as of this encounter Progress Notes * Jessica Zelaya MD - 07/16/2023 3:15 PM EDT Images from the original note were not included. DEPARTMENT OF DERMATOLOGY Medical Dermatology Clinic Provider: Jessica Zelaya MD Patient's preferred name Joesph Preferred contact method for results [x]Phone []myD-H []Letter Detailed phone message OK? Yes Are there any other people with whom we may discuss your care? Yes - Emerald () Past Medical History Date, location, treatment Melanoma No Dysplastic nevi No SCC No BCC Yes - 08/16/20: Right nasal root, BCC (frozen-section bx + Mohs 08/16/20) 08/16/20: Left nasal dorsum, BCC (frozen-section bx + Mohs 08/16/20) AKs No UV Exposure & Protection + history of blistering sunburn Other relevant past medical history No Family History Details Melanoma No NMSC No Other relevant family history No Social History Occupation: Retired Hobbies: Other: , 1 child Pre-Procedure Questions Details Allergy to lidocaine, epinephrine, Dermabond, chlorhexidine, or adhesives No Bleeding disorder or blood thinners No Pacemaker, defibrillator, deep brain stimulator, cochlear implant No History of Present Illness: Joesph Orozco is a 83 y.o. Patient returns to clinic today for a full skin exam, prefers a waist- up exam, no concerns. Last visit at Dermatology: 01/07/2023 Last visit with this provider: 01/07/2023 Medications: Reviewed in eD-H Allergies: Reviewed in eD-H Skin Examination: Waist-up skin examination: Patient was asked to disrobe to the level of their comfort. Patient elected to remain clothed below the waist. Examination of the scalp, hair, face, ears, neck, back, chest, abdomen, and upper extremities was normal with the exception of the findings below. Assessment/Plan #. Seborrheic Keratoses - Stuck on, waxy papules on the trunk and extremities. - Discussed benign nature of lesions and provided reassurance. See cosmetic add on. #. Benign Nevi - Scattered medium brown, evenly pigmented macules and papules on the trunk and extremities with reassuring pigment pattern on dermoscopy. - Discussed benign nature of lesions and provided reassurance. Will continue to monitor. #. Lentigines - Scattered light-brown, evenly pigmented, well-demarcated macules on sun-exposed areas of the trunk and extremities. - No worrisome pigmented lesions. Discussed benign nature of lesions and provided reassurance. Willcontinue to monitor. #. Black Angiomas - Multiple bright red, well-demarcated papules on the trunk and extremities. - Discussed benign nature of lesions and provided reassurance. No treatment necessary at this time. #. Seborrheic Dermatitis - Diffuse greasy, loosely adherent scale throughout the scalp and bilateral postauricular. - Discussed etiology and treatment options. - Recommended an OTC anti-dandruff shampoo, such as Head and Shoulders or Selsun Blue. Lather on scalp, leave on for 3-5 minutes, then rinse out. - Continue and refill Rx ketoconazole 2% shampoo: Apply topically to scalp in shower 2-3 times weekly. Lather on scalp, leave on 3-5 minutes, then rinse. - Start Rx Lidex 0.05% solution: Apply topically to affected areas of scalp and behind ears twice daily as needed for up to two weeks then take one week off. May repeat as needed. #. Actinic Keratoses - Ill-defined gritty papules on the left lateral eyebrow x1, nasal tip x1. - Explained premalignant potential of these lesions. - Discussed treatment with cryotherapy. Patient elects to proceed with cryotherapy today. - Instructed patient to return to clinic for re-evaluation if lesion(s) does not resolve as expected with this treatment. Procedure: Destruction of lesion(s) with cryotherapy (LN2). Location(s): As noted above. Number: 2 Discussed procedure and expectations, including risks and benefits. Verbal consent obtained. Treated with LN2. There were no complications; Patient tolerated the procedure well. Post-procedure expectations and wound care reviewed. #. History of BCC - Well-healed scars per skin history. - No evidence of recurrence; will continue to monitor. Other: N/A RTC: 1 year for FSE // sooner as needed []Note routed to stock receiver [x]Recall placed in scheduling system []Appointment scheduled at checkout Scribe attestation: Dang Avery RN has performed the documentation for this encounter in the presence of and acting as a scribe for Jessica Zelaya MD. I performed the above scribed service and agree with the accuracy of the documentation in this encounter. Reviewed and signed by: Jessica Zelaya MD Dermatology [facility] documented in this encounter Plan of Treatment Not on file documented as of this encounter Visit Diagnoses Diagnosis History of basal cell carcinoma (BCC) Lentigines Other dyschromia Multiple nevi Benign neoplasm of skin, site unspecified Seborrheic dermatitis Seborrheic dermatitis, unspecified Seborrheic keratoses Black angioma Nevus, non-neoplastic Actinic keratoses Actinic keratosis documented in this encounter Care Teams Vibration Analyst Relationship Specialty Start Date End Date Behzad Seals MD PCP - General 06/24/16 documented as of this encounter
--- OUTSIDE RECORDS SUMMARY | 2023-11-06 11:28 | XMS_ITS | Encounter Summary ---
Author Organization [facility] Address [facility] [place] [address] Care Team Providers Care Editorial Manager Name Role Phone Behzad Seals MD Primary Care Provider [phone] Reason for Referral * Consultation (Routine) - Closed Specialty Diagnoses / Procedures Referred By Contandrew t Referred To Contact Dermatology Diagnoses Basal cell carcinoma (BCC) of skin of nose Yanci Smart MD [facility] [place] [address] Blue Valverde MD [facility] [place] [address] Referral ID Status Reason Start Date Expiration Date V isits Requested Visits Authorized [id number] Closed Consult, Test & Treat 08/08/2020 08/08/2021 1 1 Reason for Visit * Reason Comments Skin Lesion Encounter Details Date Type Department Care Team (Late st Contact Info) Description 08/08/2020 3:15 PM EDT Office Visit Dermatology at [facility] [address] [place] [address] Yanci Smart MD [facility] [place] [address] Basal cell carcinoma (BCC) of skin of nose Social History Tobacco Use Types Packs/Day Years Used Date Smoking Tobacco: Never Smokeless Tobacco: Never Alcohol Use Standard Drinks/Week Comments Yes 0 (1 standard drink = 0.6 oz pur e alcohol) Sex and Gender Information Value Date Recorded Sex Assigned at Not on file Gender Identity Not on file Sexual Orientation Not on file documented as of this encounter Progress Notes * Yanci Smart MD - 08/08/2020 3:15 PM EDT Images from the original note were not included. DEPARTMENT OF DERMATOLOGY Established Patient Clinic Note Provider: YANCI SMART MD Patient Preferences Preferred name Joesph Preferred contact method for results [x] Home [] Cell [] MyD-H [] Other: Permission to leave detailed message including results Yes Permission to discuss care with (Emer[facility]) Relevant social history with 1 child Retired Past Medical History Y/N Date, location, treatment Melanoma No DN No SCC No BCC No [place] No Immunosuppression or malignancy No Blistering sunburns or tanning bed use Yes Blistering sunburns as a child Other relevant past skin history No Family History Y/N Parents, siblings, children Melanoma No NMSC No Other No Procedure Screening Questions Y/N Allergies to lidocaine or epinephrine No Blood thinners No Pacemaker or defibrillator No History of Present Illness: Joesph Orozco is a 80 y.o. new patient, self-referred. Here today for a focused exam with the following concerns: - Non-healing lesion on the left paranasal x 1 year; has self-treated with Aquaphor, NewSkin, Mederma scar cream, and other OTC topicals - Second lesion on the nasal dorsum bleeds easily Last FSE: 05/03/2014 Medications: Reviewed in eD-H Allergies: Reviewed in eD-H Skin Examination: A focused skin examination of the face, significant for the following: Significant Findings/Assessment/Plan A. BCC - 0.8 cm pink, telangiectatic papule on the right nasal root (Figure 1). - Will refer to Mohs for frozen section biopsy and treatment based on characteristic clinical appearance. B. BCC - 1.5 cm pink, telangiectatic plaque on the left nasal dorsum (Figure 2). - Will refer to Mohs for frozen section biopsy and treatment based on characteristic clinical appearance. Figure 1 - right nasal root Figure 2 - left nasal dorsum Photo(s) taken and charted with patient's verbal consent. Other: - N/A Follow Up: RTC at patient's convenience for: [x] FSE [] Follow up [x] Note routed to marketing secretary to schedule [] Recall placed in scheduling system [] Appointment scheduled before exiting If any questions or concerns arise, patient is welcome to return to clinic sooner. Sarah Pink and Tammie Blackburn [facility] have performed the documentation for this encounter inthe presence of and acting as scribes for YANCI SMART MD. I performed the above scribed service and agree with the accuracy of the documentation in this encounter. Reviewed and signed by: YANCI SMART MD Department of Dermatology [facility] documented in this encounter Plan of Treatment Scheduled Referrals Name Type Priority Associated Diagnoses Order Schedule Referral to Dermatology Outpatient Referral Routine Basal cell carcinoma (BCC) of skin of nose Ordered: 08/08/2020 documented as of this encounter Visit Diagnoses Diagnosis Basal cell carcinoma (BCC) of skin of nose documented in this encounter Care Teams Editorial Manager Relationship Specialty Start Date End Date Behzad Seals MD PCP - General 06/24/16 documented as of this encounter
--- OUTSIDE RECORDS SUMMARY | 2023-11-06 11:28 | XMS_ITS | Encounter Summary ---
Author Organization [facility] [place] [address] Care Team Providers Care Mold Shop Supervisor Name Role Phone Behzad Seals MD Primary Care Provider [phone] Encounter Details Date Type Department Care Team (Latest Contact Info) Description 01/07/2023 Travel Social History Tobacco Use Types Packs/Day Years [...] documented as of this encounter Visit Diagnoses Not on filedocumented in this encounter Care Teams Mold Shop Supervisor Relationship Specialty Start Date End Date Behzad Seals MD PCP - General 06/24/16 documented as of this encounter
--- OUTSIDE RECORDS SUMMARY | 2023-11-06 11:28 | XMS_ITS | Encounter Summary ---
Author Organization [facility] [place] [address] Care Team Providers Care Biomedical Equipment Support Specialist Name Role Phone Jimbo Hector MD Primary Care Provider [phone] Reason for Visit * Reason Comments Skin Check Encounter Details Date Type Department Care Team (Late st Contact Info) Description 05/05/2014 2:15 PM EDT Office Visit Dermatology at [address] [place] [address] Lei Jurado MD [address] [place] [address], [place] [address] Seborrheic keratosis; Nevus Discharge Disposition: Home Social History Tobacco Use Types Packs/Day Years Used Date Smoking Tobacco: Never Sex and Gender Information Value Date Recorded Sex Assigned at Not on file Gender Identity Not on file Sexual Orientation Not on file documented as of this encounter Patient Instructions * Patient Instructions* Lauren Clark LPN - 05/05/2014 2:34 PM EDT Images from the original note were not included. [facility] Actinic Keratosis: After Your Visit Your Care Instructions Actinic keratosis is a skin growth caused by sun damage. It can turn into skin cancer, but this isn't common. Actinic keratoses, also called solar keratoses, are small red, brown, or skin-colored scaly patches. They are most common on the face, neck, hands, and forearms. Your doctor can remove these growths by freezing or scraping them off or by putting medicines on them. Follow-up care is a perdomo part of your treatment and safety. Be sure to make and go to all appointments, and call your doctor if you are having problems. It's also a good idea to know your test resultsand keep a list of the medicines you take. How can you care for yourself at home? ?? If your doctor removes the growth, clean the area with soap and water 2 times a day unless your doctor gives you different instructions. Don't use hydrogen peroxide or alcohol, which can slow healing. ?? You may cover the wound with a thin layer of petroleum jelly, such as Vaseline, and a nonstick bandage. To prevent actinic keratosis ?? Always wear sunscreen on exposed skin. Make sure the sunscreen blocks ultraviolet rays (both UVAand UVB) and has a sun protection factor (SPF) of at least 15. Use it every day, even when it is cloudy. Some doctors may recommend a higher SPF, such as 30. ?? Wear long sleeves, a hat, and pants if you are going to be outdoors for a long time. ?? Avoid the sun between 10 a.m. and 4 p.m., the peak time for UV rays. ?? Do not use tanning booths or sunlamps. When should you call for help? Watch closely for changes in your health, and be sure to contact your doctor if: ?? The areas that were treated are red, drain pus, or have red streaks leading from them. ?? You see other growths that do not go away. ?? You do not get better as expected. Where can you learn more? Visit our health information library at http://[email or web address]/healthinfo You can also view health information on [employer], your personal patient account. Log in or sign up today. Enter L364 in the search box to learn more about Actinic Keratosis: After Your Visit. ?? 0131-1900 [employer] Care instructions adapted under license by [facility]. This care instruction is for use with your licensed healthcare professional. If you have questions about a medical condition or this instruction, always ask your healthcare professional. [employer] disclaims any warranty or liability for your use of this information. Content Version: 10.1.348266; Current as of: September 08, 2013 [facility] Actinic Keratosis: After Your Visit Your Care Instructions Actinic keratosis is a skin growth caused by sun damage. It can turn into skin cancer, but this isn't common. Actinic keratoses, also called solar keratoses, are small red, brown, or skin-colored scaly patches. They are most common on the face, neck, hands, and forearms. Your doctor can remove these growths by freezing or scraping them off or by putting medicines on them. Follow-up care is a perdomo part of your treatment and safety. Be sure to make and go to all appointments, and call your doctor if you are having problems. It's also a good idea to know your test resultsand keep a list of the medicines you take. How can you care for yourself at home? ?? If your doctor removes the growth, clean the area with soap and water 2 times a day unless your doctor gives you different instructions. Don't use hydrogen peroxide or alcohol, which can slow healing. ?? You may cover the wound with a thin layer of petroleum jelly, such as Vaseline, and a nonstick bandage. To prevent actinic keratosis ?? Always wear sunscreen on exposed skin. Make sure the sunscreen blocks ultraviolet rays (both UVAand UVB) and has a sun protection factor (SPF) of at least 15. Use it every day, even when it is cloudy. Some doctors may recommend a higher SPF, such as 30. ?? Wear long sleeves, a hat, and pants if you are going to be outdoors for a long time. ?? Avoid the sun between 10 a.m. and 4 p.m., the peak time for UV rays. ?? Do not use tanning booths or sunlamps. When should you call for help? Watch closely for changes in your health, and be sure to contact your doctor if: ?? The areas that were treated are red, drain pus, or have red streaks leading from them. ?? You see other growths that do not go away. ?? You do not get better as expected. Where can you learn more? Visit our health information library at http://[email or web address]/healthinfo You can also view health information on [email or web address], your personal patient account. Log in or sign up today. Enter L364 in the search box to learn more about Actinic Keratosis: After Your Visit. ?? 7258-2002 [employer] Care instructions adapted under license by [facility]. This care instruction is for use with your licensed healthcare professional. If you have questions about a medical condition or this instruction, always ask your healthcare professional. [employer] disclaims any warranty or liability for your use of this information. Content Version: 10.3.443725; Current as of: September 08, 2013 documented in this encounter Progress Notes * Lei Jurado MD - 05/05/2014 2:44 PM EDT Problem: Skin check. Joesph is a 74-year-old gentleman who would like to have a general skin checkup. He has tended to neri easily in the past, rarely burned. He has had a fair amount of sun exposure. His has had three melanomas and a number of nonmelanomatous skin cancers. The patient states he is here at the insistence of his for a skin checkup. He last had a skin checkup two years ago when they still lived in [place]. Physical examination reveals a pleasant 74-year-old gentleman who has blue eyes and fair skin and essentially a full head of hair. He has a benign examination of the head and the neck, the chest, the back, the hands, arms, forearms, thighs, and calves and also the buttocks. There is no evidence of any malignant or premalignant lesions. He has a relative paucity of nevi. He has one seborrheic keratosis on the right posterior thigh that measures 1.5 cm in diameter. Assessment and Plan: Benign skin examination. a. Patient reassured about benign skin examination. b. Recommend that I see the patient again p.r.n. for new lesions/concerns. c. Encouraged sun avoidance precautions. Return to clinic p.r.n. COPY: Jimbo Hector M.D. documented in this encounter Plan of Treatment Not on file documented as of this encounter Visit Diagnoses Diagnosis Seborrheic keratosis Other seborrheic keratosis Nevus Benign neoplasm of skin, site unspecified documented in this encounter Care Teams Biomedical Equipment Support Specialist Relationship Specialty Start Date End Date Jimbo Hector MD [facility] [address] [place] [address] PCP - General 10/21/13 06/23/16 documented as of this encounter
--- OUTSIDE RECORDS SUMMARY | 2023-11-06 11:28 | XMS_ITS | Encounter Summary ---
Author Organization [facility] Address [facility] [place] [address] Care Team Providers Care Wash Tub Machine Operator Name Role Phone Behzad Seals MD Primary Care Provider [phone] Encounter Details Date Type Department Care Team (Late st Contact Info) Description 11/19/2021 11:20 AM EDT Office Visit Dermatology at [facility] [address] [place] [address] Jessica Zelaya MD [facility] [address] [facility] [place] [address] History of basal cell carcinoma (BCC); Seborrheic keratoses; Multiple nevi; Lentigines; Black angioma Social History Tobacco Use Types Packs/Day Years [...] this encounter Progress Notes * Jessica Zelaya - 11/19/2021 11:20 AM EDT Images from the original note were [...] Retired Hobbies: Other: , 1 child Pre-Procedure Screening Details Allergy to lidocaine, epinephrine, Dermabond, chlorhexidine, or adhesives No Bleeding disorder or blood thinners No Implanted devices (Pacemaker, defibrillator, deep brain stimulator, cochlear implant) No History of Present Illness: Joesph Orozco is a 81 y.o. Patient returns to clinic today for a full skin exam. Last visit at Dermatology: 01/18/2021 Last visit with this provider: 01/18/2021 Medications: Reviewed in eD-H Allergies: Reviewed in eD-H Skin Examination: Full skin examination: Patient asked to undress to their comfort level. Verbalized that the provider???s preference is that the patient remove all clothing and that the provider will not examine areas patient elects to keep covered. Patient elects to keep underwear on and have the following examined: scalp, hair, face, ears, neck, chest, axillae, abdomen, back, and upper and lower extremities. Genitalia and buttocks were not examined. Assessment/Plan #. Seborrheic Keratoses - Stuck on, waxy papules on the trunk and extremities. - Discussed benign nature of lesions and provided reassurance. - See cosmetic add on. #. Benign Nevi [...] No treatment necessary at this time. #. History of BCC - Well-healed scars per skin history. - No evidence of recurrence; will continue to monitor. Other: ??? N/A RTC: 1 year for a full skin exam. []Note routed to front office secretary [x]Recall placed in scheduling system []Appointment scheduled at checkout Scribe attestation: BARBARA Lim has performed the documentation for this encounter in the presence of and acting as a scribe for Jessica Zelaya MD. I performed the above scribed service and agree with the accuracy of the documentation in this encounter. Reviewed and signed by: Jessica Zelaya MD Dermatology [facility] Patient seen and evaluated with staff solar installation foreman: Fernando Shah MD Dermatology [facility] * Fernando Shah MD - 11/19/2021 11:20 AM EDT I directly supervised Dr. Zelaya during this office visit. Dr. Zelaya presented the history and physical exam to me. I, then, saw and examined this patient with Dr. Zelaya. We reviewed the history and pertinent details and I confirmed the physical findings. I agree with the details of the history and physical exam as documented in Dr. Zelaya's note. FERNANDO SHAH MD Staff Physician documented in this encounter Plan of Treatment Not on file documented as of this encounter Visit Diagnoses Diagnosis History of basal cell carcinoma (BCC) Seborrheic keratoses Multiple nevi Benign neoplasm of skin, site unspecified Lentigines Other dyschromia Black angioma Nevus, non-neoplastic documented in this encounter Care Teams Wash Tub Machine Operator Relationship Specialty Start Date End Date Behzad Seals MD PCP - General 06/24/16 documented as of this encounter
--- OUTSIDE RECORDS SUMMARY | 2023-11-06 11:28 | XMS_ITS | Encounter Summary ---
Author Organization [facility] Address [address] [place] [address] Care Team Providers Care Denture Laboratory Technician Name Role Phone Unavailable Primary Care Provider Unavailabl e Encounter Details Date Type Department Care Team (Late st Contact Info) Description 05/08/2021 Lab Requisition [facility] Pathology & Laboratory Medicine - [facility] [address] [place] [address] Outr Resulting Lab, Provider Social History Tobacco [...] Procedure Name Priority Date/Time Associated Diagnosis Comments LYME AB Routine 05/08/2021 13:11 EDT documented in this encounter Results * LYME AB (05/08/2021 13:11 EDT) Lyme Ab Negative Negative 05/09/2021 10:14 EDT [facility] Blood VENOUS BLOOD / Unknown 05/08/2021 13:11 EDT 05/08/2021 21:22 EDT Provider Outr Resulting Lab IMMUNOLOGY A ND SEROLOGY ORDERABLES [facility] [address] [place] [address] documented in this encounter Visit Diagnoses Not on filedocumented in this encounter
--- OUTSIDE RECORDS SUMMARY | 2023-11-06 11:28 | XMS_ITS | Encounter Summary ---
Author Organization [facility] Address [facility] [place] [address] Care Team Providers Care Sample Driller Name Role Phone Behzad Seals MD Primary Care Provider [phone] Encounter Details Date Type Department Care Team (Late st Contact Info) Description 06/21/2018 11:51 AM EDT Anesthesia Event Operating Room [address] [place] [address] Blue Burgos, ENVIRONMENTAL SERVICES FLOOR TECH [address] [place] [address] Anesthesia Record Procedure Summary Procedure Name Responsible Anesthesiologist Anesthesia Start Time Anesthesia Stop Time LAMINECTOMY, FACETECTOMY & FORAMINOTOMY,LUMBAR, ONE LEVEL (WRVU 15.37) (Back) Blue Burgos, ENVIRONMENTAL SERVICES FLOOR TECH 06/21/18 1151 06/21/18 1321 Events Date Time Event Comment 06/21/2018 1146 1150 AN Verify 1151 Start 1151 An Start Data 1154 An Induction 1157 An Intubation 1157 Anesthesia Ready 1309 Extubation/LMA Out 1310 an stop data 1310 Recovery or ICU Handoff Ju ent care was transferred to the destination unit staff after review of the patient's medical history, current anesthetic/surgical status and plan, according to the Provider Handoff Checklist. 1321 Stop Meds Name Total Midazolam 2 mg fentaNYL 100 mcg Propofol 200 mg Rocuronium 35 mg ePHEDrine 5 mg PHENYLephrine 80 mcg ceFAZolin (ANCEF) 2g in dextrose 5% 100m L 2 g lactated ringers infusion 1,000 mL * Agents Name O2 Air N2O Sevoflurane (et) * Blood No blood administrations on file. Lines, Drains, and Airways Type Details Placement Removal (RETIRED) Peripheral IV Line - Single Lumen 06/21/18; 1144; cephalic vein (lateral side of arm), left; [id number] catheter system; 22 gauge; Jason Burgos; age-appropriate response; 3 (2 by amado Berger, 1 by anesthesia); Location1: (select this item first), metacarpal vein (top of hand), left, median vein (underside of arm), right, no redness, ecchymosis, warmth, swelling, pain, drainage; 06/21/18; 1258 06/21/18 1144 by Sharona Waters RN 06/21/18 1258 by Blue Burgos CRNA ETT Mask Ventilation: Ea sy (1); ETT Type: Cuffed, Oral; ETT Size: 7.5 mm; Mac Blade: 4; Notes: Asleep, Pre-O2; Attempts: 1; Laryngoscopy Grade: 2; ETT Placement Verified By: Auscultation, Capnometry, Visual; Secured at Teeth: 24 cm; Removal Date: 06/21/18; Removal Time: 1309 06/21/18 1157 by Blue Burgos CRNA 06/21/18 1309 by Blue Burgos CRNA (RETIRED) Peripheral IV Line - Single Lumen 06/21/18; 1205; metacarpal vein (top of hand), right; [id number]-[id number] catheter system; 20 gauge; ambrosio; 06/21/18; 1441 06/21/18 1205 by Blue Burgos CRNA 06/21/18 1441 by Conchita Alcantar RN Incision 06/21/18; 1210; 09/10 10/31 (LDA cleanup utility RA#[id number]); 1715 (LDA cleanup utility RA#[id number]) 06/21/18 1210 by Dayanna Berry RN 10/07/21 1715 by Louie Plummer documented in this encounter Social History Tobacco Use Types Packs/Day Years Used Date Smoking Tobacco: Never Smokeless Tobacco: Never Alcohol Use Standard Drinks/Week Comments Yes 0 (1 standard drink = 0.6 oz pur e alcohol) Sex and Gender Information Value Date Recorded Sex Assigned at Not on file Gender Identity Not on file Sexual Orientation Not on file documented as of this encounter OR Notes * Anesthesia Postprocedure Evaluation - Blue Burgos CRNA - 06/21/2018 1:20 PM EDT Department of Anesthesiology Post-procedure Note Patient: Joesph Orozco Procedure Summary Date: 06/21/18 Room / Location: [facility] OR MAIN OR Anesthesia Start: 1151 Anesthesia Stop: Procedures: LAMINECTOMY, FACETECTOMY & FORAMINOTOMY,LUMBAR, ONE LEVEL (WRVU 15.37) (N/A Back) ADD'L INTERSPACES CX., THORACIC, LUMBAR (WRVU 3.47) (N/A Spine Thoracic) Diagnosis: RLD (ruptured lumbar disc) Lumbar spondylosis (STENOSIS, HNP, SPONDYLOSIS) Surgeon: Criss Calle MD Responsible Provider: Blue Burgos CRNA Anesthesia Type: general ASA Status: 2 All Anesthesia Providers: BRYAN Independent: Blue Burgos CRNA Vitals Value Taken Time BP Temp Pulse Resp SpO2 Pain Level Patient Location: PACU Level of Consciousness: Conscious but Sleepy Pain Management: Pain Being Addressed PONV: None Cardiovascular Status: At Baseline Respiratory Status: At Baseline Postoperative Fluid Status: Intravascular EUvolemia Possible Anesthetic Complications: NONE apparent at time of evaluation Final Primary Anesthesia Type: General (The anesthetic type performed was the same as planned.) Comments: BP (P) 174/86 (BP Location (NBP): Left arm) Pulse (P) 74 Temp (P) 36.9 ??C (98.4 ??F)(Temporal) Resp (P) 12 Ht 175.3 cm (5' 9) Wt 90.7 kg (200 lb) SpO2 (P) 100% BMI 29.53 kg/m?? VSS report and care to RN * Anesthesia Preprocedure Evaluation - Blue Burgos CRNA - 06/21/2018 11:23 AM EDT Images from the original note were not included. Pre-Anesthesia Evaluation for: Joesph Orozco a 78 y.o. male. Procedure(s): LAMINECTOMY, FACETECTOMY & FORAMINOTOMY,LUMBAR, ONE LEVEL (WRVU 15.37) ADD'L INTERSPACES CX., THORACIC, LUMBAR (WRVU 3.47) Patient Active Problem List Diagnosis ??? Seborrheic keratosis ??? Nevus Past Medical History: Diagnosis Date ??? High blood pressure ??? Motion sickness Past Surgical History: Procedure Laterality Date ??? CATARACT REMOVAL WITH IMPLANT Bilateral ??? WISDOM TOOTH EXTRACTION Bilateral Social History Tobacco Use ??? Smoking status: Never Smoker ??? Smokeless tobacco: Never Used Substance Use Topics ??? Alcohol use: Yes Alcohol/week: 0.0 - 3.6 oz Social History Substance and Sexual Activity Drug Use Never Allergies Allergen Reactions ??? Penicillins Nausea And Vomiting and Rash Allergic years ago as a young adult, not taken since. Medications: MAR and/or home medications have been reviewed. Physical Exam: Most Recent Vitals: 06/21/18 1110 BP: (!) 175/97 Pulse: 70 Resp: 18 Temp: 37.3 ??C (99.1 ??F) SpO2: 97% Body mass index is 29.53 kg/m??. Height: 175.3 cm (5' 9) Weight: 90.7 kg (200 lb) Airway Assessment: Mallampati: II TM distance: >3 FB Neck ROM: full Cardiovascular Assessment: Rhythm: regular Rate: normal Pulmonary Assessment: breath sounds clear to auscultation Dental Assessment: Misc Assessment: Patient is wearing No contact(s). IV access: Peripheral line Anesthesia Plan: ASA 2 general, with a(n) intravenous induction Hard copy PCP clearance reviewed, Discussed pertinent positives with patient. Labs/ECG reviewed Low back pain Informed Consent: Anesthetic plan and risks discussed with patient. Use of blood products discussed with patient who. PAT Clinic Note documented in this encounter Plan of Treatment Not on file documented as of this encounter Visit Diagnoses Not on filedocumented in this encounter Administered Medications Inactive Administered Medications - up to 3 most recent administrations Medication Order MAR Action Action Date Dose Rate Site ceFAZolin (ANCEF) 2g in dextrose 5% 100mL 2 g, Intravenous, ONCE, On Thu06/21/18 at 1145, 1 dose, To be administered upon arrival to the OR within one hour prior to incision., Day of Surgery (Day of Procedure), Indication for (Active or Suspected): Prophylaxis Given 06/21/2018 11:54 AM EDT 2 g ePHEDrine injection PRN, Starting on Thu06/21/18 at 1230, Until Thu06/21/18 at 1321, Anesthesia Intra-op, Routine Given 06/21/2018 12:30 PM EDT 5 mg fentaNYL 50 mcg/mL multi-dose injection PRN, Starting on Thu06/21/18 at 1154, Until Thu06/21/18 at 1321, Anesthesia Intra-op, Routine Given 06/21/2018 11:54 AM EDT 100 mcg lactated ringers infusion 1,000 mL, at 50 mL/hr, Intravenous, CONTINUOUS, Starting on Thu06/21/18 at 1145, Until Thu06/21/18 at 1441, Day of Surgery (Day of Procedure) New Bag 06/21/2018 12:39 PM EDT New Bag 06/21/2018 11:45 AM EDT 1,000 mLs 50 mL/hr midazolam (PF) (VERSED) multi-dose injection PRN, Starting on Thu06/21/18 at 1151, Until Thu06/21/18 at 1321, Anesthesia Intra-op, Routine Given 06/21/2018 11:51 AM EDT 2 mg PHENYLephrine in NS (PF) (BERNARDO-SYNEPHRINE) 0.8 mg/10 mL (80 mcg/mL) multi-dose injection Syrg PRN, Starting on Thu06/21/18 at 1225, Until Thu06/21/18 at 1321, Anesthesia Intra-op, Routine Given 06/21/2018 12:25 PM EDT 80 mcg propofol (DIPRIVAN) 10 mg/mL bolus injection (Anesthesia) PRN, Starting on Thu06/21/18 at 1154, Until Thu06/21/18 at 1321, Anesthesia Intra-op Given 06/21/2018 11:54 AM EDT 20 0 mg rocuronium (ZEMURON) injection PRN, Starting on Thu06/21/18 at 1154, Until Thu06/21/18 at 1321, Anesthesia Intra-op, Routine Given 06/21/2018 11:54 AM EDT 35 mg documented in this encounter Care Teams Sample Driller Relationship Specialty Start Date End Date Behzad Seals MD PCP - General 06/24/16 documented as of this encounter
--- OUTSIDE RECORDS SUMMARY | 2023-11-06 11:28 | XMS_ITS | Encounter Summary ---
Author Organization [facility] Address [facility] [place] [address] Care Team Providers Care Technical Solutions Consultant Name Role Phone Behzad Seals MD Primary Care Provider [phone] Encounter Details Date Type Department Care Team (Late st Contact Info) Description 06/21/2018 12:00 PM EDT - 06/21/2018 2:50 PM EDT Surgery Operating Room [address] [place] [address] Criss Calle MD [address] [place] [address] LAMINECTOMY, FACETECTOMY & FORAMINOTOMY,LUMBAR, ONE LEVEL (WRVU 15.37) Social History Tobacco Use Types Packs/Day Years Used Date Smoking Tobacco: Never Smokeless Tobacco: Never Alcohol Use Standard Drinks/Week Comments Yes 0 (1 standard drink = 0.6 oz pur e alcohol) Sex and Gender Information Value Date Recorded Sex Assigned at Not on file Gender Identity Not on file Sexual Orientation Not on file documented as of this encounter Last Filed Vital Signs Vital Sign Reading Time Taken Comments Blood Pressure 158/72 06/21/2018 2:19 PM EDT Pulse 72 06/21/2018 2:19 PM EDT Temperature 36.9 ??C (98.4 ??F) 06/21/2018 1:15 PM ED T Respiratory Rate 14 06/21/2018 2:19 PM EDT Oxygen Saturation 97% 06/21/2018 2:19 PM EDT Inhaled Oxygen Concentration - - Weight 90.7 kg (200 lb) 06/21/2018 11:10 AM EDT Height 175.3 cm (5' 9) 06/21/2018 11:10 AM EDT Body Mass Index 29.53 06/21/2018 11:10 AM EDT documented in this encounter Discharge Instructions * Patient Instructions* Aparna Parham PA - 06/21/2018 1:10 PM EDT See Neurosurgery handout documented in this encounter Medications at Time of Discharge Medication Sig Dispensed Refills Start Date End Date primidone (MYSOLINE) 50 mg Tablet TAKE TWO TABLETS BY MOUTH AT BEDTIME 1 05/13/2018 lisinopril-hydrochloro thiazide (PRINZIDE;ZESTORETIC) 20-12.5 mg Tablet TAKE ONE TABLET BY MOUTH EVERY DAY FOR BLOOD PRESSURE 3 04/17/2018 fish oil-omega-3 fatty acids 500 mg CapsuleIndications:JASON ES IN AM Take 500 mg by mouth daily. Indications: TAKES IN AM multivitamin (THERAGRAN) TabletIndications:maria d ejesus min deficiency prevention,TAKES IN AM Take 1 tablet by mouth daily. Indications: Treatment To Prevent Vitamin Deficiency, TAKES IN AM HYDROcodone-acetaminop hen (NORCO) 5-325 mg Tablet Take 1-2 tablets by mouth every 6 hours as needed for Pain (1 tab po for mild pain and 2 tabs po for moderate to severe pain). 20 tablet 06/21/2018 07/16/2023 documented as of this encounter H&P Notes * Criss Calle MD - 06/21/2018 11:34 AM EDT Patient Name: Joesph Orozco Patient Age: 78 y.o. Birthdate: 1940 Admit date: 06/21/2018 Attending Physician: Criss Calle MD No change * Aparna Parham PA - 06/21/2018 11:30 AM EDT Patient Name: Joesph Orozco Patient Age: 78 y.o. Birthdate: 1940 Admit date: 06/21/2018 Attending Physician: Criss Calle MD Please see scanned document. Pre-op H&P reviewed. No changes noted today. documented in this encounter Miscellaneous Notes * Op Note - Criss Calle MD - 06/21/2018 1:29 PM EDT [facility] [place] [address] Patient Name: Joesph Orozco : [id number] MR#: [id number] Case Date: 06/21/2018 Case Scheduled Time: 1200 Surgeon: Surgeon(s) and Role: * Criss Calle MD - Primary * Aparna Parham PA - Physician Stock Puller Preoperative diagnosis: STENOSIS, HNP, SPONDYLOSIS Postoperative diagnosis: STENOSIS, HNP, SPONDYLOSIS Procedure(s) (LRB): LAMINECTOMY, FACETECTOMY & FORAMINOTOMY,LUMBAR, ONE LEVEL (WRVU 15.37) (N/A) ADD'L INTERSPACES CX., THORACIC, LUMBAR (WRVU 3.47) (N/A) Anesthesia: General Estimated Blood Loss: 15 mL Specimens removed during surgery: None Drains: Surgical Closure: Primary Closure - skin incision is completely closed without any wires, patrick, drains or other devices Disposition: awakened from anesthesia, extubated and taken to the recovery room in a stable condition, having suffered no apparent untoward event. Condition: doing well without problems Complications: none (Please see the Surgical Encounter Summary for any Implant and Specimen details pertinent to this patient.) Findings: Findings as severe lateral recess stenosis at the L3-4 and L45 levels as well as central stenosis. Discs were palpated but the large central protrusion at the L3-4 level was stable as was the L4-5 level. No disc excision was performed. Nerves intact. No CSF leak. Surgical Indications: Patient is a 78-year-old gentleman with a spinal claudicatory symptoms into both lower extremities with weakness and numbness with walking or standing any length of time. His MRI scan shows severe stenosis at the L3-4 and L4-5 levels both central and into the lateral recesses e specially due to ligamentous and facet hypertrophy. He also has a central disc herniation at the L3-4 level which I did not expect to be able to remove which has been noted on prior MRIs. I felt the decompression was appropriate to offer the patient and he wished to proceed with surgery. Risks of surgery including infection bleeding failed to improve recurrent spinal fluid leak among others were discussed in detail prior to procedure and he wished to proceed. Procedure Description: * The patient was taken to the operating room and underwent general endotracheal anesthesia. He was rotated to the prone position on a José frame. The lumbar region was prepped and draped in usual sterile fashion and injected with 10 cc of local anesthetic over the L3-5 region in the midline. Fluoroscopic guidance was used and an incision was made from L3-5 approximately 5 cm easily taken down to the dorsal muscle fascia. The dorsal muscle fascia was opened bilaterally and subperiosteal dissection was carried along spinous processes and laminas of L3-4 and 5 respectively. Cerebellar retractors placed. The microscope microscope was taken into the field. The Leksell rongeur was used to remove the interspace ligament of L3-4 and L4-5. High-speed drill was used to thin down the laminas of L3-4 and 5 as well as medial facet regions bilaterally. The Kerrison rongeur was then used to decompress the central canal and outer to the lateral recesses with medial facetectomies bilaterally. The L4 V nerve roots were severely compressed in the lateral recess. The disc spaces were palpated and no soft disc herniations were identified. No CSF leak nerve and nerves intact. Copious irrigation of the knee was only continue bacitracin. Closure was then performed with 2-0 Vicryl in the dorsal muscle fascia inverted 3 on the subcu tissue and Dermabond to seal the skin. The patient was then awakened from anesthesia and taken in stable condition to the PACU and having tolerated the procedure well. Infection Bundle used? N/A Criss Calle MD 06/21/2018 documented in this encounter Plan of Treatment Scheduled Orders Name Type Priority Associated Diagnoses Orde r Schedule Film Library- Storage Only MR Spine Imaging Storage Only Routine Once PRN (for Radian t use) for 1 Occurrences starting 06/21/2018 until 06/21/2018, 1 completed documented as of this encounter Procedures Procedure Name Priority Date/Time Associated Diagnosis Comments XR FLUORO NO RAD <1HR - OR USE Routine 06/21/2018 4:55 PM EDT EA ADD'L VERTEBRAL SEGMENT CERVICAL, THORACIC, LUMBAR (WRVU 3.47) 06/21/2018 11:50 AM EDT RLD (ruptured lumbar disc) Lumbar spondylosis LAMINECTOMY, FACETECTOMY & FORAMINOTOMY,LUMBAR, ONE LEVEL (WRVU 15.37) 06/21/2018 11:50 AM EDT RLD (ruptured lumbar disc) Lumbar spondylosis ORDS - PROVIDER CARE SCAN 05/19/2018 12:00 AM EDT FILM LIBRARY STORAGE ONLY MR SPINE Routine 01/21/2018 12:00 AM EST documented in this encounter Results * XR Fluoro No Rad <1Hr - OR Use (06/21/2018 4:55 PM EDT) Narrative [facility] - 06/24/2018 1:16 PM EDT This exam is auto-finalizing. No interpretation was done. Criss Calle MD IMG FLUORO BONNIE ALVAREZ Performing Organization Address City/State/[facility] Co de Phone Number [place], [place] * SCAN DOC: ORDS - PROVIDER CARE (05/19/2018 12:00 AM EDT) Narrative 05/19/2018 12:00 AM EDT Ordered by an unspecified provider. Scanning Provider MEDIA MGR SCAN EXT O RDR/RSLT * Film Library- Storage Only MR Spine (01/21/2018 12:00 AM EST) Narrative [facility] - 06/21/2018 11:17 AM EDT This exam is auto-finalizing. It's purpose is for storage only. 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 Lumbar spondylosis Lumbosacral spondylosis without myelopathy documented in this encounter Administered Medications Inactive Administered Medications - up to 3 most recent administrations Medication Order MAR Action Action Date Dose Rate Site BUpivacaine (PF) (MARCAINE) 0.5 % (5 mg/mL) injection ONCE PRN, Starting on Thu06/21/18 at 1219, Until Thu06/21/18 at 1643, Intra-Operative (Intra-Procedure), Routine Given 06/21/2018 12:19 PM EDT 5 mLs 19- Surgical Site famotidine (PEPCID) injection 20 mg 20 mg, Intravenous, ONCE, 1 dose, On Thu06/21/18 at 1145, Day of Surgery (Day of Procedure), Routine Given 06/21/2018 11:45 AM EDT 20 mg fentaNYL 50 mcg/mL multi-dose injection 25-50 mcg, Intravenous, EVERY 5 MIN PRN, Starting on Thu06/21/18 at 1322, Until Thu06/21/18 at 1441, Pain, Give 25 mcg every 5 minutes PRN for mild to moderate pain (1-5) Give 50 mcg every 5 minutes PRN for moderate to severe pain (6-10). Hold for respiratory rate less than 10 per minute. Maximum dose 250 mcg over one hour. If ordered with hydromorphone or morphine, give hydromorphone or morphine first and use fentanyl for breakthrough pain., PACU Recovery, Routine Given 06/21/2018 1:54 PM EDT 25 mcg Given 06/21/2018 1:41 PM EDT 25 mcg HYDROcodone-acetaminophen (NORCO) 5-325 mg per tablet 1-2 tablet 1-2 tablet, Oral, EVERY 4 HOURS PRN, Starting on Thu06/21/18 at 1140, Until Thu06/21/18 at 1643, Pain, For moderate to severe pain (4-10) Initial dose 5mg. If pain control not adequate in 60 minutes, give an additional 5 mg., Recovery (Recovery-Hospital Unit), Routine Given 06/21/2018 2:07 PM EDT 1 tablet lactated ringers infusion 1,000 mL, at 50 mL/hr, Intravenous, CONTINUOUS, Starting on Thu06/21/18 at 1145, Until Thu06/21/18 at 1441, Day of Surgery (Day of Procedure) New Bag 06/21/2018 12:39 PM EDT New Bag 06/21/2018 11:45 AM EDT 1,000 mLs 50 mL/hr lidocaine-EPINEPHrine 2 %-1:200,000 injection ONCE PRN, Starting on Thu06/21/18 at 1219, Until Thu06/21/18 at 1643, Intra-Operative (Intra-Procedure), Routine Given 06/21/2018 12:19 PM EDT 5 mLs 19- Surgical Site ondansetron (ZOFRAN) injection 4 mg 4 mg, Intravenous, EVERY 4 HOURS PRN, Starting on Thu06/21/18 at 1151, Until Thu06/21/18 at 1643, Nausea, Vomiting, May give IV if unable to take PO, Recovery (Recovery-Hospital Unit), Routine ondansetron (ZOFRAN) tablet 4 mg 4 mg, Oral, EVERY 4 HOURS PRN, Starting on Thu06/21/18 at 1151, Until Thu06/21/18 at 1643, Nausea, Vomiting, May give IV if unable to take PO, Recovery (Recovery-Hospital Unit), Routine documented in this encounter Active and Recently Administered Medications Times are shown in EDT. Scheduled Medication Order 06/19/2018 06/20/2018 06/21/2018 ceFAZolin (ANCEF) 2g in dextrose 5% 100mL (COMPLETED) 2 g, Intravenous, ONCE, On Thu06/21/18 at 1145, 1 dose, To be administered upon arrival to the OR within one hour prior to incision., Day of Surgery (Day of Procedure), Indication for (Active or Suspected): Prophylaxis 1154 (Given - Provid er: Blue Burgos CRNA) famotidine (PEPCID) injection 20 mg (COMPLETED) 20 mg, Intravenous, ONCE, 1 dose, On Thu06/21/18 at 1145, Day of Surgery (Day of Procedure), Routine 1145 (Given - Provid er: Sharona Waters RN) Continuous Medication Order 06/19/2018 06/20/2018 06/21/2018 lactated ringers infusion (CANCELED) 1,000 mL, at 50 mL/hr, Intravenous, CONTINUOUS, Starting on Thu06/21/18 at 1145, Until Thu06/21/18 at 1441, Day of Surgery (Day of Procedure) 1145 (New Bag - Prov ider: Sharona Waters RN)1239 (New Bag - Provider: Blue Burgos CRNA) PRN Medication Order 06/19/2018 06/20/2018 06/21/2018 acetaminophen (TYLENOL) tablet 650 mg 650 mg, Oral, EVERY 4 HOURS PRN, Starting on Thu06/21/18 at 1140, Until Thu06/21/18 at 1643, Headaches, Headache with mild pain, temperature higher than 38.3 degrees celsius, For Mild Pain (1-3). Headache with mild pain, temperature higher than 38.3 degrees celsius, Recovery (Recovery-Hospital Unit), Routine BUpivacaine (PF) (MARCAINE) 0.5 % (5 mg/mL) injection (CANCELED) ONCE PRN, Starting on Thu06/21/18 at 1219, Until Thu06/21/18 at 1643, Intra-Operative (Intra-Procedure), Routine 1219 (Given - Provid er: Criss Calle MD) fentaNYL 50 mcg/mL multi-dose injection (CANCELED) 25-50 mcg, Intravenous, EVERY 5 MIN PRN, Starting on Thu06/21/18 at 1322, Until Thu06/21/18 at 1441, Pain, Give 25 mcg every 5 minutes PRN for mild to moderate pain (1-5) Give 50 mcg every 5 minutes PRN for moderate to severe pain (6-10). Hold for respiratory rate less than 10 per minute. Maximum dose 250 mcg over one hour. If ordered with hydromorphone or morphine, give hydromorphone or morphine first and use fentanyl for breakthrough pain., PACU Recovery, Routine 1341 (Given - Provid er: Conchita Alcantar RN)1354 (Given - Provider: Conchita Alcantar RN) HYDROcodone-acetaminophen (NORCO) 5-325 mg per tablet 1-2 tablet 1-2 tablet, Oral, EVERY 4 HOURS PRN, Starting on Thu06/21/18 at 1140, Until Thu06/21/18 at 1643, Pain, For moderate to severe pain (4-10) Initial dose 5mg. If pain control not adequate in 60 minutes, give an additional 5 mg., Recovery (Recovery-Hospital Unit), Routine 1407 (Given - Provid er: Conchita Alcantar RN) ketorolac (TORADOL) injection 15 mg 15 mg, Intravenous, EVERY 6 HOURS PRN, Starting on Thu06/21/18 at 1141, Until Thu06/21/18 at 1643, Pain, For severe pain (7-10) not relieved by oral pain medications, Recovery (Recovery-Hospital Unit), Routine lidocaine-EPINEPHrine 2 %-1:200,000 injection (CANCELED) ONCE PRN, Starting on Thu06/21/18 at 1219, Until Thu06/21/18 at 1643, Intra-Operative (Intra-Procedure), Routine 1219 (Given - Provid er: Criss Calle MD) ondansetron (ZOFRAN) injection 4 mg(Linked Group 1) 4 mg, Intravenous, EVERY 4 HOURS PRN, Starting on Thu06/21/18 at 1151, Until Thu06/21/18 at 1643, Nausea, Vomiting, May give IV if unable to take PO, Recovery (Recovery-Hospital Unit), Routine ondansetron (ZOFRAN) tablet 4 mg(Linked Group 1) 4 mg, Oral, EVERY 4 HOURS PRN, Starting on Thu06/21/18 at 1151, Until Thu06/21/18 at 1643, Nausea, Vomiting, May give IV if unable to take PO, Recovery (Recovery-Hospital Unit), Routine Linked Groups Order Group 1: ondansetron (ZOFRAN) tablet 4 mgJump to med 4 mg, Oral, EVERY 4 HOURS PRN, Starting on Thu06/21/18 at 1151, Until Thu06/21/18 at 1643, Nausea, Vomiting, May give IV if unable to take PO, Recovery (Recovery- Hospital Unit), Routine Or ondansetron (ZOFRAN) injection 4 mgJump to med 4 mg, Intravenous, EVERY 4 HOURS PRN, Starting on Thu06/21/18 at 1151, Until Thu06/21/18 at 1643, Nausea, Vomiting, May give IV if unable to take PO, Recovery (Recovery-Hospital Unit), Routine documented in this encounter Care Teams Technical Solutions Consultant Relationship Specialty Start Date End Date Behzad Seals MD PCP - General 06/24/16 documented as of this encounter
--- OUTSIDE RECORDS SUMMARY | 2023-11-06 11:28 | XMS_ITS | Encounter Summary ---
Author Organization [facility] Address [facility] [place] [address] Care Team Providers Care Hot Plate Plywood Press Laborer Name Role Phone Behzad Seals MD Primary Care Provider [phone] Encounter Details Date Type Department Care Team (Late st Contact Info) Description 01/21/2018 Ancillary Procedure Radiology at [address] [address] Social History Tobacco Use Types Packs/Day Years Used Date Smoking Tobacco: Never Sex and Gender Information Value Date Recorded Sex Assigned at Not on file Gender Identity Not on file Sexual Orientation Not on file documented as of this encounter Plan of Treatment Not on file documented as of this encounter Procedures Procedure Name Priority Date/Time Associated Diagnosis Comments FILM LIBRARY STORAGE ONLY MR SPINE Routine 01/21/2018 12:00 AM EST documented in this encounter Results * Film Library- Storage Only MR Spine (01/21/2018 12:00 AM EST) Narrative [facility] - 06/21/2018 11:17 AM EDT This exam is auto-finalizing. It's purpose is for storage only. Criss Calle MD IMG FILM LIBRARY OR DERABLES [place], [place] documented in this encounter Visit Diagnoses Not on filedocumented in this encounter Care Teams Hot Plate Plywood Press Laborer Relationship Specialty Start Date End Date Behzad Seals MD PCP - General 06/24/16 documented as of this encounter
--- OUTSIDE RECORDS SUMMARY | 2023-11-06 11:28 | XMS_ITS | Encounter Summary ---
Author Organization [facility] [place] [address] Care Team Providers Care Ice Hockey Coach Name Role Phone Behzad Seals MD Primary Care Provider [phone] Encounter Details Date Type Department Care Team (Late st Contact Info) Description 08/03/2018 Ancillary Procedure Radiology at [facility] [address] [place] [id number] Criss Calle MD [address] [facility] [address] [place] [address] Social History Tobacco Use Types Packs/Day Years [...] FILM LIBRARY STORAGE ONLY MR SPINE Routine 08/03/2018 12:00 AM EDT documented in this encounter Results * Film Library- Storage Only MR Spine (08/03/2018 12:00 AM EDT) Narrative [facility] - 08/09/2018 4:44 PM EDT This exam is auto-finalizing. It's purpose is for storage only. Criss Calle MD IMG FILM LIBRARY ORDERABLES [facility] [place], [place] documented in this encounter Visit Diagnoses Not on filedocumented in this encounter Care Teams Ice Hockey Coach Relationship Specialty Start Date End Date Behzad Seals MD PCP - General 06/24/16 documented as of this encounter
--- OUTSIDE RECORDS SUMMARY | 2023-11-06 11:28 | XMS_ITS | Encounter Summary ---
Author Organization [facility] Address [facility] [place] [address] Care Team Providers Care Wire Weaving Loom Setter Name Role Phone Behzad Seals MD Primary Care Provider [phone] Reason for Visit * Reason Comments Procedure * Consultation (Routine) - Closed Specialty Diagnoses / Procedures Referred By Contac t Referred To Contact Dermatology Diagnoses Basal cell carcinoma (BCC) of skin of nose Yanci Smart MD [facility] [address] [place] [address] Blue Valverde MD [facility] [address] [place] [address] Referral ID Status Reason Start Date Expiration Date V isits Requested Visits Authorized [id number] Closed Consult, Test & Treat 08/08/2020 08/08/2021 1 1 Encounter Details Date Type Department Care Team (Latest Contact Info) Description 08/16/2020 10:00 AM EDT Procedure visit Dermatology at [facility] [address] [place] [address] Blue Valverde MD [facility] DR [address] [address] Prophylactic antibiotic; Basal cell carcinoma of left side of nose; Basal cell carcinoma of nose Social History Tobacco Use Types [...] Sign Reading Time Taken Comments Blood Pressure 178/92 08/16/2020 10:16 AM EDT Pulse 53 08/16/2020 10:16 AM EDT Temperature - - Respiratory Rate - - Oxygen Saturation - - Inhaled Oxygen Concentration - - Weight - - Height - - Body Mass Index - - documented in this encounter Patient Instructions * Patient Instructions* Belinda Fields RN - 08/16/2020 10:00 AM EDT Your staff Mohs surgeon today was Blue Valverde MD, PhD. FLAP CLOSURE Your wound(s) was repaired by a flap closure. A flap closure is rearrangement of skin tissue. A flap is performed when the area has too much tension, or when a simple side to side closure cannot be performed, or when a flap would lead to better cosmetic outcome with a flap. Your flap may be closed with all absorbable sutures, sutures that need to be removed or a combination of both. You will be instructed upon discharge if a suture removal appointment is necessary. Caring for a flap is very similar to caring for regular side to side stitches, except more caution should be used when cleaning the incisions as some flaps can be delicate. Instructions for wound care are below. Please keep in mind these are general guidelines. When in doubt, or if you have more specific questions, please call us. Keep below as a reference while caring for your wound(s): Wound Care ??? Gently remove your initial bandage (after 48 hours from surgery). It is normal to have swellingand bruising. ??? Begin wound care as below. ??? If your initial bandage only stayed on for 24 hours (for example, falls off sooner), this is okay. Resume your wound care and bandaging instructions as below. ??? Change your bandage once a day (and whenever it becomes wet or soaks through) continue for 7 days. ??? For bandage changes: o Wash hands with soap and water, or use gloves that you can purchase at a local pharmacy or drug store. o Clean the surgical area with cotton-tipped swabs or soft gauze dipped in soapy water (recommend liquid soap in clean room temperature water). Roll the cotton swab over the incision with soapy water, then with plain water, and then gently pat dry. Do not scrub the area with a washcloth. Do not putdirect shower water pressure onto your wound. Do not pick off any scabs. It is okay to allow soapy w ater to run over your wound in the shower, however. o If you cannot remove any bloody or crusted areas, you may soak the area with wet gauze first for 15 to 20 minutes to help soften it o Pat the area dry with clean gauze or cotton swabs. Do not rub. o Use a cotton swab to apply a generous layer of petrolatum over the incision lines and any open-wound areas. o Make sure your tube or jar of petrolatum is new or unused to prevent prior contamination from entering your wound. Avoid double dipping. o After applying petrolatum, use a clean nonstick gauze or other nonstick dressing, such as Telfa. This may be purchased over the counter at a drug store. Do not use regular gauze as it will stick toyour wound and can peel off healing skin with bandage changes. o Secure the bandage with paper tape or a bandage. Band-aids are okay, but typically have more adhesive that can irritate the skin compared to paper tape. This can be purchased at a drug store. o Continue this wound care daily for 7 days. If any areas of the flap were left open to heal, continue to apply Vaseline until healed. o Keep in mind that if you do not want to use a bandage at all due to difficulty, irritation of skin, cost, or inconvenience --- you can certainly avoid bandages altogether. However, it is imperativethat you continue with topical petrolatum (plain, fragrance-free). This may need to be applied several times daily if it gets wiped off, washed off, or dries out. Things to purchase for wound care: -Nonstick gauze -A tube or tub of petrolatum jelly (fragrance-free, no dye, not lotion) -paper tape -cotton swabs -gloves (optional) -Dial or other antibacterial liquid soap After Surgery 1. Avoid tobacco, smoking/vapors, and cannabis (marijuana) for at least 3 weeks after your surgery.Smoking impairs healing and leads to worse scarring. Even cutting back on tobacco is helpful if youcannot abstain completely. 2. Limit alcohol intake to one drink per day over the next 3 days. 3. Do not participate in athletic activities for 5-7 days. Athletic activity is a relative term, but this is considered to be anything that could potentially raise your heartrate or blood pressure. Elevating your heart rate and blood pressure can increase risks of swelling, bleeding, wound opening,or lead to worse scarring. Walking at a leisurely pace is fine for most people, but not if you are going walking for the purpose of exercise. 4. Do not lift anything heavier than 10 pounds until your sutures are removed. 5. Some shape brick molder may need to be delayed or delegated such as vacuuming, mowing the lawn, snow shoveling, or caring for young children that need to be carried/lifted. Working any major muscle groups increases your heart rate and can increasing bleeding. 6. Avoid swimming, hot tubs, and direct water pressure for 3 weeks after surgery. You may shower once your initial bandage comes off in 48 hours, however. 7. Avoid antibiotic ointments such as triple antibiotic creams. Stick with your wound care instructions, please. 8. Whenever possible, it is helpful to take photographs with your camera or cell phone of any problems or concerns you see with your wound. We often ask for photos when you call with questions. 9. Starting 2 months following surgery, you can begin firm massage to any areas of firm scar along your incision to soften the scar and reduce bumpiness. Do this 3 times per day, 3 minutes each time.Do not start massage before 2 months. 10. Your wound will appear completely healed soon after sutures are removed (about 1 week), but incisions can remain bright red for several weeks. Then the scarring and healing process continues under the skin for 6 months up to 2 years. The scar may become less red, less firm, and more subtle during this time but the rate of improvement varies depending on the person. Most redness, discoloration, bumpiness resolves by 6 months. 11. Keep your follow-up appointments and make sure to continue to have your skin checked, as often as is recommended by your merchandise marker, for new skin cancers. This is once per year for most patients. 12. Your can expect your scar to be red for several weeks with gradual fading of the redness. The scar will also be raised and lumpy until the dissolvable sutures under the skin get absorbed by your body which can take 3-4 months. The scar will flatten eventually. 13. Occasionally, about 20% of the time, on the face, the stitches under the skin can spit out ofthe incision to the surface. It can start out looking like a pimple or blemish directly on your incision. Sometimes it can look like a small mini infection so please let us know before you go to another provider for antibiotics. This means that the suture may need to be trimmed or removed when you return for your wound check. This typically occurs a few weeks after surgery if it does occur. 14. To optimize your scar, and best cosmetic result, please avoid direct sunlight to your incision for the first 6 months following surgery. UV ray exposure to your incision may cause the redness to last longer, or to cause permanent darkening of your scar. You can avoid sun by covering your incision with a bandage when outdoors, or wearing SPF 30 to 50 sunscreen (broad spectrum). 15. Sometimes after your sutures are removed, your incision may still be healing for 1 more week. Because of this, avoid make-up and sunscreen until approximately 2 weeks after surgery, or sooner if your skin edges look completely sealed. 16. Flaps may sometimes thicken or become firm several weeks after surgery. This is expected in some types of flaps and in certain locations on the face. This is called hypertrophy. If this occurs, at your wound check, you may need small amounts of medicine injected into your flap to help it softenor thin. This will be determined at your follow-up visit. 17. Flaps and skin surgery in general can lead to mild sensation loss (numbness) in the area of surgery. Massage starting at 8 weeks after surgery can help. 18. Bruising. It is very common to have bruising in swelling in any area of the face, even in areasthat are distant from where we did surgery. This is especially common 24 to 48 hours after surgery when fluid and swelling shifts around in the face. For example, surgery on the forehead, temples, orcheeks often leads to eyelid swelling of both eyes, black eyes, or dark purple bruising. This is expected in most patients and will gradually resolve. However, if you have severe pain not resolvingwith over the counter medicine, please call us. You can use ice packs or a bag of frozen peas for 15-20 minutes 3-4 times daily to areas of swelling on the face; use caution not to put the icy item di rectly on your incision, directly onto your skin as this can damage skin, and avoid prolonged use more than 20 minutes. The best way to use ice packs is over the bandage, or a light cloth/paper towelbetween the ice pack and your skin. You can ice for as many days as needed until swelling has resolved. Antibiotics: If you were given antibiotic prescription, it is important to start them the evening of your surgery date. Most patients do not need antibiotics after surgery. For pain: Most patients of different ages do not require pain medications. If you do feel soreness or pain, start by taking over the counter extra strength acetaminophen (up to 3000 mg in a 24 hour period). Generally, we like you to avoid NSAIDS (non-steroid anti-inflammatory drugs such as ibuprofen) for thefirst 48 hours after surgery as this can increase risk of bleeding. However, if acetaminophen is not helping with pain, you can alternate acetaminophen with iburpofen (ibuprofen 400 mg every 4 hours.) Ice packs over your bandage without getting your bandage wet can also help with pain and swelling,for up to 20 minutes at a time (20 minutes off between icing sessions). Frozen peas work well as ice packs. THIS IS AN EXAMPLE OF A PAIN TREATMENT SCHEDULE: 1) You can take 500 mg acetaminophen one tablet by mouth at 6:00pm. This is over the counter. 2) You can take 400 mg of ibuprofen two hours later, at 8:00 pm, or other NSAID such as naproxen, as long as it does not interact with your other medications and your other doctors have not told you to avoid this. This is over the counter. Check to see how many milligrams (mg) each of your ibuprofen tablets are. Most of the time, ibuprofen comes in 200 mg tablets, so 400 mg would mean taking two of these tablets or capsules. 3) You can take 500 mg of acetaminophen at 10:00 pm. Keep track of your total acetaminophen in a 24hour period as your maximum should be 3000 mg total in a 24 hour period of this medication. 4) At midnight, you can take another 400 mg of ibuprofen. 5) you can continue on this schedule over the next 2 days, making sure to keep tabs of your total acetaminophen. If you are still in pain after trying the above, please call us. When to call your surgeon: ??? Fever of 100.4 degrees Fahrenheit or higher ??? Bleeding not controlled with direct firm pressure to your wound. Bleeding is most common in thefirst 48 hours. ??? Pain that is worsening and not relieved by over the counter medications such as acetaminophen (up to 3000 mg in a 24 hour period) ??? Wound reopening after stitching ??? Pus or bad odor from your wound ??? Worsening redness and warmth around your wound ??? If you think your surgery site is infected, please call us before seeking care or antibiotics from other providers ??? Please call us before seeking care in an emergency room or primary care. ??? If you do call, please leave your full name, phone number, date of , date of surgery, and medical record number if you have it. If after hours, please call the two needle machine operator or [phone] and ask for the merchandise marker on-call. If you have any non-urgent questions or concerns, please feel free to call my office or contact me through our patient portal, [email or web address], at [email or web address] How to contact us during business hours Dermatology at [facility] [address]: Mohs scheduling or Mohs follow-up appointments: [phone] documented in this encounter Progress Notes * Blue Valverde MD - 08/16/2020 10:00 AM EDT Images from the original note were not included. Summary of Procedure(s): Site: left nasal dorsum Tumor Type: Basal Cell Carcinoma Stages to clear tumor: 3 Repair: advancement flap and transposition flap Images: Site: right nasal root Tumor Type: Basal Cell Carcinoma, infiltrative Stages to clear tumor: 2 Repair: advancement flap and transposition flap Images: The patient was asked to call with any issues and is aware that I am available / should questions arise. Blue Valverde MD PhD Mohs Micrographic Surgery and Dermatologic Oncology Department of Dermatology Please note that I have reviewed the preoperative checklist from today's nursing visit including relevant social history and medications. I have reviewed the preoperative photos if available and the biopsy report. VITAL SIGNS: BP (!) 178/92 (BP Location (NBP): Left arm, Patient Position: Sitting, BP Cuff Sizes: Adult (25-34 cm)) Pulse 53 PHYSICAL EXAMINATION: General: patient is awake, alert, oriented and in no acute distress. Skin: Focused examination of surgical site(s) performed which shows two pearly plaques. PHYSICIAN REVIEW OF REPORTS, RECORDS, IMAGES: 1) The accompanying pathology report(s) associated with aforementioned biopsy slide(s) were/was also reviewed. Assessment: Joesph Orozco is a 80 y.o. male presenting for: 1. Biopsy-proven basal cell carcinoma located on the left nasal dorsum. 2. Biopsy-proven infiltrative basal cell carcinoma located on the right nasal root. Plan: 1. Findings from the biopsy report, today's clinical exam, and other pertinent details were reviewed with patient today. All questions were answered. 2. Discussed treatment options based on the above findings. We recommended Mohs micrographic surgery for treatment of this tumor. Mohs micrographic surgery was indicated due to patient, site and/or tumor characteristics (see operative report for specific indication). 3. We discussed risks, benefits, and alternative treatment options to the Mohs micrographic surgeryprocedure and pertinent information including but not limited to the following: ?? Risks include bleeding, infection, scar, recurrence, incomplete tumor removal or inability to cure with surgery alone if the tumor features are more aggressive than the initial pathology indicates. Occasionally, additional adjuvant treatments may be recommended. Additional risks include large wound, prolonged wound and healing, pain, swelling, bruising, increased appearance of vessels or worsening erythema of baseline skin; more rarely risks include damage to underlying structures such as nerves, cartilage, or muscle which could lead to temporary or permanent loss of sensation or motor function. ?? Benefit is precise tumor removal ?? If reconstruction is performed, it is specific to the patient and defect. ?? Discussed that the shape, size, depth of the wound is often not known until the tumor is clearedand thus the reconstruction options are sometimes not known until after tumor clearance. Occasionally, referrals to other providers may be recommended for reconstruction based on patient preference and need. ?? Reviewed the pros and cons of common reconstructions used for this tumor type, size, and location, and that reconstruction may lead to change in appearance. ?? Natural history of scar was discussed, including that the scar will continue to mature for 1-2 years. Recommended avoidance of special ointments or scar creams, and avoidance of direct sun exposure to the scar for optimal recovery. ?? Reviewed that there are some aspects of cosmesis that are dependent on patient's characteristicssuch as age, skin laxity/texture factors, inflammatory skin diseases such as rosacea, prior surgery/radiation, degree of actinic damage, smoking status, strength of the patient's immune system, diligent wound care, medications, and genetics. ?? Having Mohs surgery may lead to physical limitations for optimal healing, such as restricted physical activity and heavy lifting. 4. The nature of sun-induced photo-aging and skin cancers was discussed. Recommended sun avoidance when possible, especially peak hours of sun 10 am to 2pm, protective clothing such as wide-brimmed hats and long-sleeved clothing, and the use of SPF broad-spectrum sunscreen SPF 50 or higher. 5. Signs and symptoms of skin cancer reviewed. Patient to report any new, changing, or symptomatic lesions and follow up with his or her merchandise marker or other skin provider. 6. Discussed avoiding direct sun exposure to scars for best cosmetic result. Note initiated by Belinda Fields, RN Belinda Fields RN has performed the documentation for this encounter in the presence of and acting as a scribe for Dr. Valverde I performed the above scribed service and agree with the accuracy of the documentation in this encounter. Reviewed and signed by: Blue Valverde Dermatology [facility] * Blue Valverde MD - 08/16/2020 10:00 AM EDT Frozen Biopsy Procedure: Skin biopsy by shave technique Location: left nasal dorsum Discussed indications for procedure and expectations including risks and benefits. Verbal consent obtained. Skin prep with alcohol. Local anesthesia with 1% xylocaine, 1/100,000 epinephrine. A sampleof the lesion was removed by shave technique to the level of the dermis and submitted for frozen sections and revealed basal cell carcinoma, infiltrative. Hemostasis obtained (AlCl and/or electrocautery). There were no complications; the pt. tolerated the procedure well. Blue Valverde MD PhD Mohs Micrographic Surgery and Dermatologic Oncology Department of Dermatology [address] [place] [address] Mohs micrographic Surgery Operative Report Site #1 - left nasal dorsum Patient name: Joesph Orozco : 1940 Date: 08/16/2020 Staff Surgeon: Blue Valverde MD PhD Nursing/Energy Sales Broker(s): Belinda Fields RN, Yuliya Ryan CMA, Gema BonillaChad POSTING CLERK, Erik Pierce CMA Ladle Repairman (s): Negrita Ward Pre-operative diagnosis: basal cell carcinoma Post-operative diagnosis: basal cell carcinoma Location/Site: left nasal dorsum Procedure: Mohs micrographic surgery Indication(s) for Mohs micrographic surgery: critical anatomic location for tissue conservation Stages: 3 Preoperative size of tumor: 0.8 x 0.7 cm Final defect size: 1.9 x 1.5 cm Stage I The nature and purpose of the procedure, associated risks, possible consequences and complications,and alternative forms of treatment were explained in detail. We reviewed the possible repairs basedon the clinical appearance of tumor but discussed that often the repair options may not be known until the tumor has lawrence extirpated. Informed consent and permission to take photographs were obtained. The site was confirmed with the patient/authorized front office representative/referring physician and/or a photograph form time of biopsy. A pre-operative time-out (procedural pause) was conducted with no unresolved discrepancies noted. Local anesthesia was obtained with 1% lidocaine with 1:100,000 epinephrine. The surgical site was prepped and draped in the usual sterile manner. With all visible gross tumor completely excised, the borders of the tumor and 2- 3 mm margins were excised as a complete layer. Hemostasis was achieved by electrocoagulation. The excised tissue was oriented and divided into 2 sections, chromacoded, and submitted for frozen sections. The patient tolerated the procedure well and without complications. On microscopic evaluation of the frozen sections, residual tumor was identified as basal cell carcinoma on section A1 and A2 (see section number on map). Stage II The surgical site was re-anesthetized with 1% lidocaine with 1:100,000 epinephrine, re-prepped and redraped in a sterile manner. The residual tumor was re-excised as a complete layer 2-3mm in thickness using the Mohs map to delineate area of residual tumor. Hemostasis was achieved with electrocoagul ation. The tissue was oriented and divided into 1 sections, chromacoded, and submitted for frozen sections. The patient tolerated the procedure well and without complications. On microscopic evaluation of the frozen sections, residual tumor was identified as basal cell carcinoma on section(s) B1. Stage III The surgical site was re-anesthetized with 1% lidocaine with 1:100,000 epinephrine, re-prepped and redraped in a sterile manner. The residual tumor was re-excised as a complete layer 2-3mm in thickness. Hemostasis was achieved with electrocoagulation. The tissue was oriented and divided into 1 sections, chromacoded, and submitted for frozen sections. The patient tolerated the procedure well and without complications. On microscopic evaluation of the frozen sections, no residual tumor was identified on the deep or outer border of the sections. The final size of the defect after complete tumor removal was 1.9 x 1.5 cm, extending to perichondrium/ muscle. Blue Valverde MD PhD Mohs Micrographic Surgery and Dermatologic Oncology Department of Dermatology [address] [place] [id number] Frozen Biopsy Procedure: Skin biopsy by shave technique Location: right nasal root Discussed indications for procedure and expectations including risks and benefits. Verbal consent obtained. Skin prep with alcohol. Local anesthesia with 1% xylocaine, 1/100,000 epinephrine. A sampleof the lesion was removed by shave technique to the level of the dermis and submitted for frozen sections and revealed basal cell carcinoma. Hemostasis obtained (AlCl and/or electrocautery). There were no complications; the pt. tolerated the procedure well. Blue Valverde MD PhD Mohs Micrographic Surgery and Dermatologic Oncology Department of Dermatology [address] [place] [address] Mohs micrographic Surgery Operative Report Site #2 - right nasal root Patient name: Joesph Orozco : 1940 Date: 08/16/2020 Staff Surgeon: Blue Valverde MD PhD Nursing/Energy Sales Broker(s): Belinda Fields RN, Yuliya Ryan CMA, Gema Hamilton LPN, Erik Pierce CMA Ladle Repairman (s): Negrita Ward Pre-operative diagnosis: Basal Cell Carcinoma, infiltrative Post-operative diagnosis: same Location/Site: right nasal root Procedure: Mohs micrographic surgery Indication(s) for Mohs micrographic surgery: Anatomic location for tissue conservation Stages: 2 Preoperative size of tumor: 0.6 x 0.5 cm Stage I The nature and purpose of the procedure, associated risks, possible consequences and complications,and alternative forms of treatment were explained in detail. We reviewed the possible repairs basedon the clinical appearance of tumor but discussed that often the repair options may not be known until the tumor has lawrence extirpated. Informed consent and permission to take photographs were obtained. The site was confirmed with the patient/authorized front office representative/referring physician and/or a photograph form time of biopsy. A pre-operative time-out (procedural pause) was conducted with no unresolved discrepancies noted. Local anesthesia was obtained with 1% lidocaine with 1:100,000 epinephrine. The surgical site was prepped and draped in the usual sterile manner. With all visible gross tumor completely excised, the borders of the tumor and 2- 3 mm margins were excised as a complete layer. Hemostasis was achieved by electrocoagulation. The excised tissue was oriented and divided into 2 sections, chromacoded, and submitted for frozen sections. The patient tolerated the procedure well and without complications. On microscopic evaluation of the frozen sections, residual tumor was identified as infiltrative basal cell carcinoma on section A1 (see section number on map). Stage II The surgical site was re-anesthetized with 1% lidocaine with 1:100,000 epinephrine, re-prepped and redraped in a sterile manner. The residual tumor was re-excised as a complete layer 2-3mm in thickness using the Mohs map to delineate area of residual tumor. Hemostasis was achieved with electrocoagul ation. The tissue was oriented and divided into 1 sections, chromacoded, and submitted for frozen sections. The patient tolerated the procedure well and without complications. On microscopic evaluation of the frozen sections, no residual tumor was identified on the deep or outer border of the sections. Depth of excision subcutaneous tissue Final defect size: 1.0 x 0.9 cm Blue Valverde MD PhD Mohs Micrographic Surgery and Dermatologic Oncology Department of Dermatology [address] [place] [address] Repair Report (Flap) Patient name: Joesph Brock Orozco Staff Surgeon: Blue Valverde MD PhD Reimbursement Spec(s): same as above physical therapy assistant instructor: Belinda Fields RN, Florence Garza MD Date: 08/16/2020 Clinical Diagnosis: skin and soft tissue defect status post Mohs micrographic surgery Location/Site: combined closure of left nasal dorsum and right nasal root Indication: repair of wound with gnosticism of anatomy/function Defect size to be repaired: left nasal dorsum - 1.9 x 1.5 cm / right nasal root - 1 x 0.9 cm Procedure: Advancement and transposition flap repair (tissue rearrangement) Final flap size: 6 x 4 cm 2 Procedure Details: Due to the size and location of the defect resulting from the complete removal of the tumor, the postoperative risk of hemorrhage, infection, and the possibility of serious deformity from scarring, and in order to restore proper function and prevent loss of function, the defect was closed with an advancement flap. The nature and purpose of the procedure, associated risks, possible consequences, complications andalternative methods of treatment were explained to the patient in detail. An informed consent was obtained. Local anesthesia was obtained with a solution of 1-% lidocaine with 1:100,000 epinephrine. The surgical site was prepped and draped in the usual sterile manner. Any beveled edges of the defect were repaired with a scalpel blade. The flap was created by making incisions along the right superior nasal root and left medial cheek.The flap and the wound edges were undermined, and hemostasis was obtained with electrocoagulation. The flap was advanced and tranposed onto the defect. The skin edges were closed using 4-0 Monocryl dermal/subcutaneous sutures and 6-0 Prolene skin sutures. Final flap size: 6 x 4 cm2. Estimated bloodloss: Minimal. Complications: None. Wound care: Routine. Follow up for suture removal in seven days. The patient was discharged in good condition. Total local anesthesia with 1% lidocaine with 1:100,000 epinephrine used: 15cc Total local with 0.25% bupivacaine used: 12cc Preoperative Medications: None Post-operative medications: Doxycycline 100 mg by mouth twice daily x 5 days Blue Valverde MD PhD Mohs Micrographic Surgery and Dermatologic Oncology Department of Dermatology [address] [place] [address] Note initiated by Belinda Fields RN. Belinda Fields RN has performed the documentation for this encounter in the presence of and acting as a scribe for Dr. Valverde I performed the above scribed service and agree with the accuracy of the documentation in this encounter. Reviewed and signed by: Blue Valverde Dermatology [facility] documented in this encounter Plan of Treatment Not on file documented as of this encounter Visit Diagnoses Diagnosis Prophylactic antibiotic Encounter for long-term (current) use of antibiotics Basal cell carcinoma of left side of nose Basal cell carcinoma of skin of other and unspecified parts of face Basal cell carcinoma of nose Basal cell carcinoma of skin of other and unspecified parts of face documented in this encounter Care Teams Wire Weaving Loom Setter Relationship Specialty Start Date End Date Behzad Seals MD PCP - General 06/24/16 documented as of this encounter
--- OUTSIDE RECORDS SUMMARY | 2023-11-06 11:28 | XMS_ITS | Encounter Summary ---
Author Organization [facility] [place] [address] Care Team Providers Care Renewal Specialist Name Role Phone Behzad Seals MD Primary Care Provider Reason for Visit * Reason Comments Skin Cancer Examination Encounter Details Date Type Department Care Team ([facility] st Contact Info) Description 10/08/2020 11:00 AM EDT Office Visit Dermatology at [facility] [address] [place] [address] Yanci Smart MD [facility] DR KEN[place] [address] Seborrheic keratoses; Skin tag; History of basal cell carcinoma (BCC) Social History Tobacco Use Types Packs/Day Years [...] Progress Notes * Yanci Smart MD - 10/08/2020 11:00 AM EDT Images from the original note were not included. DEPARTMENT OF DERMATOLOGY [facility] Provider: YANCI SMART MD Preferred name Joesph Preferred contact method for results [x] Phone (Home) [] MyD-H [] Letter Permission to leave detailed message Yes Permission to discuss care with ([place]) Past Medical History Date, location, treatment Melanoma No DN No SCC No BCC 08/16/20: Right nasal root, BCC (frozen-section bx + Mohs 08/16/20) 08/16/20: Left nasal dorsum, BCC (frozen-section bx + Mohs 08/16/20) [place] No UV exposure & protection + History of blistering sunburns as a child Other relevant past medical history No Family History Details Melanoma No NMSC No Other relevant family history No Social History Retired; with 1 child Pre-Procedure Screening Details Allergy to lidocaine, epinephrine, Dermabond, chlorhexidine, or adhesives: No Bleeding disorder or blood thinners: No Pacemaker, defibrillator, deep brain stimulator, cochlear implant: No History of Present Illness: Joesph Orozco is a 80 y.o. established patient who returns to the clinic today for a full skin examination with the following concerns: - Patient denies any specific skin concerns today; no lesions that are new, changing or symptomatic. Last FSE: None (focused exam of face only) Last visit at [facility] Derm: 08/08/2020 Last visit with this provider: 08/08/2020 Medications: Reviewed in eD-H Allergies: Reviewed in [...] extremities. Genitalia and buttocks were not examined. Assessment/Plan: A. Seborrheic Keratoses - Stuck on, waxy papules on the trunk and extremities, including right axilla. - Discussed benign nature of lesions and provided reassurance. No treatment necessary at this time. - Discussed option of cosmetic removal. Patient quoted $100 for removal of 1-10. Patient would liketo pursue treatment in the future. B. Skin Tags - Sessile, flesh-colored papules on the axillae. - Discussed benign nature of lesions and provided reassurance. No treatment necessary at this time. - Discussed option of cosmetic removal. Patient quoted $100 for removal of 1-10. Patient would liketo pursue cosmetic removal in the future. C. History of BCC - Well-healed scars per skin history. - No evidence of recurrence; will continue to monitor. Other: - N/A RTC: At patient's convenience for cosmetic SK + skin tag removal; 1 year for FSE [x] Note routed to legal administrative secretary [x] Recall placed in scheduling system [] Appointment scheduled before exiting BARBARA Hallman and Sarah Pink have performed the documentation for this encounter inthe presence of and acting as scribes for YANCI SMART MD. I performed the above scribed service and agree with the accuracy of the documentation in this encounter. Reviewed and signed by: YANCI SMART MD Dermatology [facility] documented in this encounter Plan of Treatment Not on file documented as of this encounter Visit Diagnoses Diagnosis Seborrheic keratoses Skin tag Unspecified hypertrophic and atrophic condition of skin History of basal cell carcinoma (BCC) documented in this encounter Care Teams Renewal Specialist Relationship Specialty Start Date End Date Behzad Seals MD PCP - General 06/24/16 documented as of this encounter
--- OUTSIDE RECORDS SUMMARY | 2023-11-06 11:28 | XMS_ITS | Encounter Summary ---
Author Organization [facility] Address [address] [place] [address] Care Team Providers Care Aluminizer Name Role Phone Unavailable Primary Care Provider Unavailabl e Encounter Details Date Type Department Care Team (Late st Contact Info) Description 10/12/2021 Lab Requisition [facility] Pathology & Laboratory Medicine - [facility] [address] [place] [address] Outr Resulting Lab, Provider Social History Tobacco [...] Procedure Name Priority Date/Time Associated Diagnosis Comments HEPATITIS C AB W REFLEX TO HCV RNA BY PCR Routine 10/11/2021 14:55 EDT documented in this encounter Results * HEPATITIS C AB W REFLEX TO HCV RNA BY PCR (10/11/2021 14:55 EDT) Hep C Antibody Negative Negative 10/14/2021 9:24 EDT [facility] Blood VENOUS BLOOD / Unknown 10/11/2021 14:55 EDT 10/13/2021 16:45 EDT Provider Outr Resulting Lab CHEMISTRY & BLOOD GAS ORDERABLES [facility] [address] [place] [address] documented in this encounter Visit Diagnoses Not on filedocumented in this encounter
--- OUTSIDE RECORDS SUMMARY | 2023-11-06 11:28 | XMS_ITS | Clinical Summary ---
Author Organization [facility] Address [facility] [place] [address] Care Team Providers Care Acetylene Plant Operator Name Role Phone Behzad Seals MD Primary Care Provider [phone] Allergies Active Allergy Reactions Criticality Noted Date Comments Penicillins Nausea And Vomiting,Rash 06/15/2018 Allergic years ago as a young adult, not taken since. Medications Medication Sig Dispensed Refills Start Date End Date Status primidone (MYSOLINE) 50 mg Tablet TAKE TWO TABLETS BY MOUTH AT BEDTIME 1 05/13/2018 Active lisinopril-hydrochl orothiazide (PRINZIDE;ZESTORETI C) 20-12.5 mg Tablet TAKE ONE TABLET BY MOUTH EVERY DAY FOR BLOOD PRESSURE 3 04/17/2018 Active fish oil-omega-3 fatty acids 500 mg CapsuleIndications: TAKES IN AM Take 500 mg by mouth daily. Indications: TAKES IN AM Active multivitamin (THERAGRAN) TabletIndications:v itamin deficiency prevention,TAKES IN AM Take 1 tablet by mouth daily. Indications: Treatment To Prevent Vitamin Deficiency, TAKES IN AM Active ergocalciferol, vitamin D2, (VITAMIN D ORAL) 1 capsule every 24 hours. Active propranolol LA (Inderal LA) 80 mg ER 24 hr capsule Take 80 mg by mouth daily. 07/10/2023 Active fluocinonide (LIDEX) 0.05 % SolutionIndications :Seborrheic dermatitis Apply topically to affected areas of scalp and behind ears twice daily as needed for up to two weeks then take one week off. May repeat as needed. 60 mL 3 07/16/2023 Active ketoconazole (NIZORAL) 2 % ShampooIndications: Seborrheic dermatitis Apply topically to affected area behind ears and scalp, let sit for 3-5 minutes then rinse off. Alternate with home OTC antidandruff shampoo 120 mL 3 07/16/2023 Active Active Problems Problem Noted Date Diagnosed Date Seborrheic keratosis 05/05/2014 Nevus 05/05/2014 Social History Tobacco Use Types Packs/Day Years Used Date Smoking Tobacco: Never Smokeless Tobacco: Never Alcohol Use Standard Drinks/Week Comments Yes 0 (1 standard drink = 0.6 oz pur e alcohol) Sex and Gender Information Value Date Recorded Sex Assigned at Not on file Gender Identity Not on file Sexual Orientation Not on file Last Filed Vital Signs Vital Sign Reading Time Taken Comments Blood Pressure 178/92 08/16/2020 10:16 AM EDT Pulse 53 08/16/2020 10:16 AM EDT Temperature 36.9 ??C (98.4 ??F) 06/21/2018 1:15 PM ED T Respiratory Rate 14 06/21/2018 2:19 PM EDT Oxygen Saturation 97% 06/21/2018 2:19 PM EDT Inhaled Oxygen Concentration - - Weight 90.7 kg (200 lb) 06/21/2018 11:10 AM EDT Height 175.3 cm (5' 9) 06/21/2018 11:10 AM EDT Body Mass Index 29.53 06/21/2018 11:10 AM EDT Plan of Treatment Health Maintenance Due Date Last Done Comments Tetanus/Diphtheria/Pertussis Vaccines (1 - Tdap) 04/01 Zoster vaccine (1 of 2) 1992 Advance Directive 1997 Pneumoccocal Vaccine: 65+ (1 of 1 - PCV) 2007 Covid-19 Vaccine (1 - 2022- season) 2023 Influenza (Flu) vaccine (1 o f 1 - Influenza standard series) 10/11/2023 Care Teams Acetylene Plant Operator Relationship Specialty Start Date End Date Behzad Seals MD PCP - General 06/24/16
--- OUTSIDE RECORDS SUMMARY | 2023-11-06 11:28 | XMS_ITS | Referral Summary ---
Author Organization [facility] Address [address] [place] [address] Care Team Providers Care Pastry Cook Name Role Phone Unavailable Primary Care Provider Unavailabl e Social History Tobacco Use Types Packs/Day Years Used Date Smoking Tobacco: Never Assessed Sex and Gender Information Value Date Recorded Sex Assigned at Not on file Gender Identity Not on file Sexual Orientation Not on file Plan of Treatment Not on file
--- OUTSIDE RECORDS SUMMARY | 2023-11-06 11:28 | XMS_ITS | Encounter Summary ---
Author Organization [facility] [place] [address] Care Team Providers Care Cement Sack Breaker Name Role Phone Behzad Seals MD Primary Care Provider [phone] Encounter Details Date Type Department Care Team (Late st Contact Info) Description 06/15/2018 3:00 PM EDT Telephone Pre-Admission Testing at [facility] [address] [place] [address] Social History Tobacco Use Types Packs/Day Years [...] on filedocumented in this encounter Care Teams Cement Sack Breaker Relationship Specialty Start Date End Date Behzad Seals MD PCP - General 06/24/16 documented as of this encounter
--- OUTSIDE RECORDS SUMMARY | 2023-11-06 11:28 | XMS_ITS | Encounter Summary ---
Author Organization [facility] Address [facility] [place] [address] Care Team Providers Care Legal Instruments Examiner Name Role Phone Behzad Seals MD Primary Care Provider [phone] Encounter Details Date Type Department Care Team (Late st Contact Info) Description 10/11/2020 Telephone Dermatology at [facility] [address] [place] [address] Yanci Smart MD [facility] [address] [address] Social History Tobacco Use Types Packs/Day Years Used Date Smoking Tobacco: Never Smokeless Tobacco: Never Alcohol Use Standard Drinks/Week Comments Yes 0 (1 standard drink = 0.6 oz pur e alcohol) Sex and Gender Information Value Date Recorded Sex Assigned at Not on file Gender Identity Not on file Sexual Orientation Not on file documented as of this encounter Miscellaneous Notes * Telephone Encounter - Gabbie Lancaster - 10/17/2020 10:21 AM EDT I left a second voicemail for Joesph Orozco requesting a call back to schedule cosmetic SK + skin tag removal * Telephone Encounter - Gabbie Lancaster - 10/11/2020 10:22 AM EDT I left a voicmail for Joesph Orozco requesting a call back to schedule cosmetic SK + skin tag removal with Dr. Smart. * Telephone Encounter - Gabbie Lancaster - 10/11/2020 10:22 AM EDT ----- Message from Sarah Pink sent at 10/08/2020 11:20 AM EDT ----- At patient's convenience for cosmetic SK + skin tag removal documented in this encounter Plan of Treatment Not on file documented as of this encounter Visit Diagnoses Not on filedocumented in this encounter Care Teams Legal Instruments Examiner Relationship Specialty Start Date End Date Behzad Seals MD PCP - General 06/24/16 documented as of this encounter
--- OUTSIDE RECORDS SUMMARY | 2023-11-06 11:28 | XMS_ITS | Encounter Summary ---
Author Organization [facility] Address [facility] [place] [address] Care Team Providers Care Jeep Driver Name Role Phone Behzad Seals MD Primary Care Provider [phone] Encounter Details Date Type Department Care Team (Late st Contact Info) Description 01/07/2023 10:00 AM EST Office Visit Dermatology at [facility] [address] [place] [address] Jessica Zelaya MD [facility] DR KENISA[address] [place] [address] Encounter for cosmetic procedure Social History Tobacco Use Types Packs/Day Years [...] Progress Notes * Jessica Zelaya MD - 01/07/2023 10:00 AM EST COSMETIC DERMATOLOGY CLINIC NOTE Date of service: 01/07/2023 Joesph Orozco : 1940 Provider: Jessica Zelaya MD. HPI Joesph rOozco is a 82 y.o. year old male. He is here today for cosmetic treatment of Sk's Allergies Allergen Reactions Penicillins Nausea And Vomiting and Rash Allergic years ago as a young adult, not taken since. EXAM General: NAD, pleasant, cooperative. Skin: A focused skin examination of the back was performed. Diagnosis/Skin findings/Assessment/Plan: #. Sk's - Discussed with patient that treatment/removal is considered cosmetic, therefore insurance will not cover it and patient will be expected to pay out of pocket. Patient quoted $100 for procedure today. - Lesions treated with LN2 today. Patient paid $100 upon leaving the clinic today for the above procedure(s). Scribe attestation: Mary Kate Kilpatrick CMA who has performed the documentation for this encounter in the presence of and acting as a scribe for Jessica Zelaya MD. I performed the above scribed service and agree with the accuracy of the documentation in this encounter. Reviewed and signed by: Jessica Zelaya MD Dermatology [facility] documented in this encounter Plan of Treatment Not on file documented as of this encounter Visit Diagnoses Diagnosis Encounter for cosmetic procedure documented in this encounter Care Teams Jeep Driver Relationship Specialty Start Date End Date Behzad Seals MD PCP - General 06/24/16 documented as of this encounter
--- OUTSIDE RECORDS SUMMARY | 2023-11-06 11:28 | XMS_ITS | Encounter Summary ---
Author Organization [facility] Address [facility] [place] [address] Care Team Providers Care Teletype Technician Name Role Phone Behzad Seals MD Primary Care Provider [phone] Encounter Details Date Type Department Care Team (Latest Contact Info) Description 08/23/2020 2:45 PM EDT Clinical Support Dermatology at [facility] [address] [place] [address] Blue Valverde MD [facility] DR KEN[place] [address] Visit for suture removal Social History Tobacco Use Types Packs/Day Years Used Date Smoking Tobacco: Never Smokeless Tobacco: Never Alcohol Use Standard Drinks/Week Comments Yes 0 (1 standard drink = 0.6 oz pur e alcohol) Sex and Gender Information Value Date Recorded Sex Assigned at Not on file Gender Identity Not on file Sexual Orientation Not on file documented as of this encounter Progress Notes * Belinda Fields RN - 08/23/2020 2:45 PM EDT Images from the original note were not included. Patient: Joesph Orozco Date of . 1940 Today's Date: 08/23/2020 Joesph Orozco is a 80 y.o. male here for suture removal, seven days post op. Denies concerns/ complications. Photograph: Plan: 1. Sutures removed today without complication. Continue Vaseline for another 5-7 days. Bandage optional. 2. Follow up with referring provider or copyright manager for skin exams. 3. Follow up with Dr. Valverde as needed. documented in this encounter Plan of Treatment Not on file documented as of this encounter Visit Diagnoses Diagnosis Visit for suture removal Encounter for removal of sutures documented in this encounter Care Teams Teletype Technician Relationship Specialty Start Date End Date Behzad Seals MD PCP - General 06/24/16 documented as of this encounter
--- OUTSIDE RECORDS SUMMARY | 2023-11-06 11:28 | XMS_ITS | Encounter Summary ---
Author Organization [facility] Address [facility] [place] [address] Care Team Providers Care Park Interpretive Ranger Name Role Phone Behzad Seals MD Primary Care Provider [phone] Encounter Details Date Type Department Care Team (Late st Contact Info) Description 01/07/2023 10:15 AM EST Office Visit Dermatology at [facility] [address] [place] [address] Jessica Zelaya MD [facility] [place] [address] Actinic keratoses; Superficial basal cell carcinoma (BCC); Seborrheic keratoses; Multiple nevi; Lentigines; Black angioma; Seborrheic dermatitis; History of basal cell carcinoma (BCC) Social [...] Notes * Jessica Zelaya MD - 01/07/2023 10:15 AM EST Images from the original note were not [...] of Present Illness: Joesph Orozco is a 82 y.o. Patient returns to clinic today for a full skin exam. Patient denies any specific skin concerns today; no lesions that are new, changing orsymptomatic. Last visit at Dermatology: 01/07/2023 Last visit [...] exception of the findings below. Assessment/Plan #. Actinic Keratosis - Ill-defined gritty papule on the right eyebrow x1. - Explained premalignant potential of these lesions. - Discussed treatment with cryotherapy. Patient elects to proceed with cryotherapy today. - Instructed patient to return to clinic for re-evaluation if lesion(s) does not resolve as expected with this treatment. Procedure: Destruction of lesion(s) with cryotherapy (LN2). Location(s): As noted above. Number: 1 Discussed procedure and expectations, including risks and benefits. Verbal consent obtained. Treated with LN2. There were no complications; Patient tolerated the procedure well. Post-procedure expectations and wound care reviewed. #. sBCC - 7mm scaly macule on the right upper back. - Discussed treatment with cryotherapy; patient would like to proceed. - Instructed patient to return to clinic for re-evaluation if lesion(s) does not resolve as expected with this treatment. Procedure: Destruction of malignant lesion(s) with cryotherapy (LN2). Location(s): Right upper back Number: 1 Discussed procedure and expectations, including risks (especially hypopigmentation) and benefits. Verbal consent obtained. Frozen with LN2, 45 second thaw time, twice. There were no complications; patient tolerated the procedure well. Post-procedure expectations and wound care were reviewed. - Final diameter: 1cm #. Seborrheic Keratoses - Stuck on, waxy [...] for 3-5 minutes, then rinse out. - Start Rx ketoconazole 2% shampoo: Apply topically to scalp in shower 2-3 times weekly. Lather on scalp, leave on 3-5 minutes, then rinse. #. History of BCC - Well-healed scars per skin history. - No evidence of recurrence; will continue to monitor. Other: N/A RTC: 1 year for a full skin exam. []Note routed to artificial limb fitter [x]Recall placed in scheduling system []Appointment scheduled at checkout Scribe attestation: Mary Kate Kilpatrick CMA has performed the documentation for this encounter in the presence of and acting as a scribe for Jessica Zelaya MD. I performed the above scribed service and agree with the accuracy of the documentation in this encounter. Reviewed and signed by: Jessica Zelaya MD Dermatology [facility] documented in this encounter Plan of Treatment Not on file documented as of this encounter Visit Diagnoses Diagnosis Actinic keratoses Actinic keratosis Superficial basal cell carcinoma (BCC) Seborrheic keratoses Multiple nevi Benign neoplasm of skin, site unspecified Lentigines Other dyschromia Black angioma Nevus, non-neoplastic Seborrheic dermatitis Seborrheic dermatitis, unspecified History of basal cell carcinoma (BCC) documented in this encounter Care Teams Park Interpretive Ranger Relationship Specialty Start Date End Date Behzad Seals MD PCP - General 06/24/16 documented as of this encounter
--- OUTSIDE RECORDS SUMMARY | 2023-11-06 11:28 | XMS_ITS | Encounter Summary ---
Author Organization [facility] [place] [address] Care Team Providers Care Senior Staff Consultant Name Role Phone Behzad Seals MD Primary Care Provider [phone] Encounter Details Date Type Department Care Team (Latest Contact Info) Description 07/16/2023 Travel Social History Tobacco Use Types Packs/Day [...] on filedocumented in this encounter Care Teams Senior Staff Consultant Relationship Specialty Start Date End Date Behzad Seals MD PCP - General 06/24/16 documented as of this encounter
--- OUTSIDE RECORDS SUMMARY | 2023-11-06 11:28 | XMS_ITS | Encounter Summary ---
Author Organization [facility] Address [facility] [place] [address] Care Team Providers Care Sand Wheeler Name Role Phone Behzad Seals MD Primary Care Provider Encounter Details Date Type Department Care Team (Late st Contact Info) Description 11/19/2021 11:40 AM EDT Office Visit Dermatology at [facility] [address] [place] [address] Jessica Zelaya MD [facility] DR KENISHA [place] [address] Encounter for cosmetic procedure Social History Tobacco [...] Progress Notes * Jessica Zelaya - 11/19/2021 11:40 AM EDT Please see same-day medical note for details of cosmetic procedure. Lesion type: SK's Number: 10 Location(s): 10 Cosmetic charge: $100; patient paid before exiting the clinic today. * Fernando Shah MD - 11/19/2021 11:40 AM EDT I directly supervised Dr. Zelaya [...] procedure documented in this encounter Care Teams Sand Wheeler Relationship Specialty Start Date End Date Behzad Seals MD PCP - General 06/24/16 documented as of this encounter
--- OUTSIDE RECORDS SUMMARY | 2023-11-06 11:28 | XMS_ITS | Encounter Summary ---
Author Organization [facility] Address [facility] [place] [address] Care Team Providers Care Polygraph Examiner Name Role Phone Behzad Seals MD Primary Care Provider [phone] Encounter Details Date Type Department Care Team (Late st Contact Info) Description 06/21/2018 2:00 PM EDT Ancillary Procedure Radiology Xray at [facility] [place] [address] Social History Tobacco Use Types Packs/Day Years [...] OR USE Routine 06/21/2018 4:55 PM EDT documented in this encounter Results * XR Fluoro No Rad <1Hr - OR Use (06/21/2018 4:55 PM EDT) Narrative [facility] - 06/24/2018 1:16 PM EDT This exam is auto-finalizing. No interpretation was done. Criss Calle MD IMG FLUORO KULWINDERA JALENS [place], [place] documented in this encounter Visit Diagnoses Not on filedocumented in this encounter Care Teams Polygraph Examiner Relationship Specialty Start Date End Date Behzad Seals MD PCP - General 06/24/16 documented as of this encounter
--- OUTSIDE RECORDS SUMMARY | 2023-11-06 11:28 | XMS_ITS | Encounter Summary ---
Author Organization [facility] Address [facility] [place] [address] Care Team Providers Care Serologist Name Role Phone Behzad Seals MD Primary Care Provider [phone] Reason for Visit * Reason Comments Procedure Encounter Details Date Type Department Care Team (Latest Contact Info) Description 08/16/2020 9:45 AM EDT Clinical Support Dermatology at [facility] [address] [place] [address] [facility] [address] KENISHA LI[place]ARRAG[place] [address] Basal cell carcinoma of left side of nose; Basal cell carcinoma of root of nose Social History Tobacco Use Types [...] Time Taken Comments Blood Pressure 178/92 08/16/2020 9:58 AM EDT Pulse 53 08/16/2020 9:58 AM EDT Temperature - - Respiratory Rate - - Oxygen Saturation - - Inhaled Oxygen Concentration - - Weight - - Height - - Body Mass Index - - documented in this encounter Progress Notes * Belinda Fields RN - 08/16/2020 9:45 AM EDT Mohs consultation and preoperative note (H&P) Patient Name: Joesph Orozco Age: 80 y.o. Date of : 1940 Today's Date: 08/16/2020 REFERRING PROVIDER: Yanci Smart MD CC: Mohs micrographic surgery for treatment of a cutaneous tumor HPI: Joesph Orozco is a 80 y.o. male presenting for probable basal cell carcinoma location on the right nasal root and left nasal dorsum. The dermatologic preoperative information sheet was reviewed with pertinent positive and negative as below. DERMATOLOGIC PRE-OPERATIVE EVALUATION AND REVIEW OF SYSTEMS History of Mohs surgery? no If yes, have you ever had Mohs surgery with Dr. Valverde? no Pacemaker/Defibrillator? no Joint replacement or other implantable devices (e.g. Cochlear implant)? If yes then when? no Do you take a blood thinner? No History of organ transplant? no History of artificial valve or stroke? no History of liver disease or bleeding disorder? no Do you have any medical problems that may affect your upcoming surgery? no Do you have any concerns regarding your upcoming surgery? no We ask patients to discontinue Fish oil/Multivitamin/Vit E/?? supplements and natural medicines not prescribed by a physician 1 week prior to surgery. SOCIAL HISTORY: Makes Own Decisions Yes Hearing aid or other devices: No Relevant travel history or future plans: None Tobacco use (amount per day, type of tobacco): no Do you have any physical limitations that may affect your surgery?: no ALLERGIES: Allergies reviewed MEDICATIONS: Medications reviewed documented in this encounter Plan of Treatment Not on file documented as of this encounter Visit Diagnoses Diagnosis Basal cell carcinoma of left side of nose Basal cell carcinoma of skin of other and unspecified parts of face Basal cell carcinoma of root of nose Basal cell carcinoma of skin of other and unspecified parts of face documented in this encounter Care Teams Serologist Relationship Specialty Start Date End Date Behzad Seals MD PCP - General 06/24/16 documented as of this encounter
--- OUTSIDE RECORDS SUMMARY | 2023-11-06 11:28 | XMS_ITS | Encounter Summary ---
Author Organization [facility] Address [facility] [place] [address] Care Team Providers Care Experimental Assembler Name Role Phone Behzad Seals MD Primary Care Provider [phone] Encounter Details Date Type Department Care Team (Late st Contact Info) Description 01/18/2021 2:45 PM EST Office Visit Dermatology at [facility] [address] [place] [address] Yanci Smrat MD [facility] DR [place] [address] Seborrheic keratoses Social History Tobacco Use Types Packs/Day [...] Progress Notes * Yanci Smart MD - 01/18/2021 2:45 PM EST COSMETIC DERMATOLOGY CLINIC NOTE Date of service: 01/18/2021 Joesph Orozco : 1940 Provider: YANCI SMART MD. HPI Joesph Orozco is a 80 y.o. male. He is here today for cosmetic removal/treatment of SKs. Allergies Allergen Reactions ??? Penicillins Nausea And Vomiting and Rash Allergic years ago as a young adult, not taken since. EXAM General: NAD, pleasant, cooperative. Skin: A focused skin examination of the axillae and back was performed. ASSESSMENT/PLAN: A. Seborrheic Keratoses - Stuck on, waxy papules on the axillae and back. - Discussed with patient that treatment/removal will be considered cosmetic, therefore insurance will not cover it and patient will be expected to pay out of pocket, in full, at time of service. Patient quoted $100 for procedure today. - Lesions treated with LN2 and snip removal today. Patient paid $100 upon leaving the clinic today for the above procedure(s). Note initiated by: BARBARA Onofre I, Sarah Pink, have performed the documentation for this encounter in the presence of and acting as a scribe for YANCI SMART MD. I performed the services which were documented by the scribe, and I agree with the accuracy of the documentation in this encounter. YANCI SMART MD. YANCI SMART MD. Section of Dermatology [facility] documented in this encounter Plan of Treatment Not on file documented as of this encounter Visit Diagnoses Diagnosis Seborrheic keratoses documented in this encounter Care Teams Experimental Assembler Relationship Specialty Start Date End Date Behzad Seals MD PCP - General 06/24/16 documented as of this encounter
--- OUTSIDE RECORDS SUMMARY | 2023-11-06 11:28 | XMS_ITS | Encounter Summary ---
Author Organization [facility] Address [facility] [place] [address] Care Team Providers Care Laborer Poultry Hatchery Name Role Phone Behzad Seals MD Primary Care Provider [phone] Encounter Details Date Type Department Care Team (Latest Contact Info) Description 06/21/2018 10:56 AM EDT - 06/21/2018 2:43 PM EDT Hospital Encounter Post Acute Care Unit at [facility] [address] [place] [address] Criss Calle MD [address] [facility] [address] [place] [address] Spinal stenosis, lumbar region, with neurogenic claudication Discharge Disposition: Home Social History Tobacco Use [...] Indications: TAKES IN AM multivitamin (THERAGRAN) TabletIndications:maria de jesus min deficiency prevention,TAKES IN AM Take 1 [...] 06/21/2018 11:30 AM EDT Patient Name: Joesph VARNERN: [id number] Patient Age: 78 y.o. Birthdate: 1940 Admit date: 06/21/2018 Attending Physician: Criss Calle MD Please see scanned document. Pre-op H&P reviewed. No changes noted today. documented in this encounter Miscellaneous Notes * Op Note - Criss Calle MD - 06/21/2018 1:29 PM EDT [facility] [place] [address] Patient Name: Joesph Orozco : [id number] MR#: [id number] Case Date: 06/21/2018 Case Scheduled Time: 1200 Surgeon: Surgeon(s) and Role: * Criss Calle MD - Primary * Aaprna Parham PA - Physician Teacher Physically Impaired Preoperative diagnosis: STENOSIS, HNP, SPONDYLOSIS Postoperative diagnosis: [...] OR Use (06/21/2018 4:55 PM EDT) Narrative [facility] - 06/24/2018 1:16 PM EDT This exam is auto-finalizing. No interpretation was done. Criss Calle MD IMG FLUORO BONNIE ALVAREZ [place], [place] * SCAN DOC: ORDS - PROVIDER CARE (05/19/2018 12:00 AM EDT) Narrative 05/19/2018 12:00 AM EDT Ordered by an unspecified provider. Scanning Provider MEDIA MGR SCAN EXT O RDR/RSLT * Film Library- Storage Only MR Spine (01/21/2018 12:00 AM EST) Narrative [facility] - 06/21/2018 11:17 AM EDT This exam is auto-finalizing. It's purpose is for storage only. Criss Calle MD IMG FILM LIBRARY OR DERABLES [facility] [place], [place] documented in this encounter Visit Diagnoses Diagnosis Spinal stenosis, lumbar region, with neurogenic claudication documented in this encounter Administered Medications Inactive Administered Medications - up to 3 most recent administrations Medication Order MAR Action Action Date Dose Rate Site famotidine (PEPCID) injection 20 mg 20 [...] 11:45 AM EDT 1,000 mLs 50 mL/hr ondansetron (ZOFRAN) injection 4 mg 4 mg, [...] Routine documented in this encounter Care Teams Laborer Poultry Hatchery Relationship Specialty Start Date End Date Behzad Seals MD PCP - General 06/24/16 documented as of this encounter
[2023-11-06 16:33] LABS: Anion Gap 7.5 mmol/L (3-11); BUN 10 mg/dL (7-18); CO2 30.5 mmol/L (21.0-32.0); CREATININE 0.9 mg/dL (0.70-1.30); Calcium 9.3 mg/dL (8.5-10.1); Chloride 104 mmol/L (98-107); Glucose 91 mg/dL (74-106); Magnesium 2.2 mg/dL (1.8-2.4); Sodium 142 mmol/L (136-145)
== END 2023-11-06 11:27 | disposition home or self-care (01) ==
LOC: NCHCN 11:26
PROVIDERS: PCP Family Medicine; Visit Provider Student in an Organized Health Care Education/Training Program
DX: I10 Essential (primary) hypertension (principal)
CPT/HCPCS: 80048; 83735

== ENCOUNTER 2023-11-19 16:24 | Outpatient (CLI) | payer MEDICARE, OTHER, SELFPAY ==
--- NOTE | 2023-11-19 | DI.RAD_ITS ---
Exam(s) XR THUMB LT EXAM: XR THUMB LT CLINICAL HISTORY: Pain in left thumb, M79.645. TECHNIQUE: 2D digital imaging was performed. COMPARISON: CR,XR XR FINGER RT INDEX from 05/16/2023 FINDINGS: 3 views There is very subtle fracture at the base of the proximal phalanx. Also mildly avulsed fragment at t his level. No dislocation of this joint. Advanced degenerative changes are noted at the articulatio n between the thumb metacarpal in the trapezium of the distal carpal row. Moderate degenerative talavera ges are noted in the interphalangeal joint of the thumb. Osseous lesions. IMPRESSION: Subtle fracture in the proximal aspect of the proximal phalanx of the thumb. This may be associated with a collateral ligament tear DATA REPOSITORY: RADIATION DOSE DELIVERED:
--- OUTSIDE RECORDS SUMMARY | 2023-11-19 16:25 | XMS_ITS | Encounter Summary ---
Author Organization [facility] Address [facility] [place] [address] Care Team Providers Care Chief Technician Name Role Phone Behzad Seals MD Primary Care Provider [phone] Encounter Details Date Type Department Care Team (Late st Contact Info) Description 07/16/2023 3:15 PM EDT Office Visit Dermatology at [facility] [address] [place] [address] Jessica Zelaya MD [facility] DR KENISHA WOOD-[place] [address] History of basal cell carcinoma (BCC); Lentigines; [...] // sooner as needed []Note routed to principal secretary [x]Recall placed in scheduling system []Appointment scheduled at checkout Scribe attestation: Dang Avery RN has performed the documentation for this encounter in the presence of and acting as a scribe for Jessica Zelaya MD. I performed the above scribed service and agree with the accuracy of the documentation in this encounter. Reviewed and signed by: Jessica Zelaya MD Dermatology Count Includes [facility] documented in this encounter Plan of Treatment Not on file documented as of this encounter Visit Diagnoses Diagnosis History of basal cell carcinoma (BCC) Lentigines Other dyschromia Multiple nevi Benign neoplasm of skin, site unspecified Seborrheic dermatitis Seborrheic dermatitis, unspecified Seborrheic keratoses Black angioma Nevus, non-neoplastic Actinic keratoses Actinic keratosis documented in this encounter Care Teams Chief Technician Relationship Specialty Start Date End Date Behzad Seals MD PCP - General 06/24/16 documented as of this encounter
--- OUTSIDE RECORDS SUMMARY | 2023-11-19 16:25 | XMS_ITS | Encounter Summary ---
Author Organization [facility] Address [facility] [place] [address] Care Team Providers Care Cleaner And Dyer Name Role Phone Behzad Seals MD Primary Care Provider [phone] Encounter Details Date Type Department Care Team (Late st Contact Info) Description 11/19/2021 11:40 AM EDT Office Visit Dermatology at [facility] [address] [place] [address] Jessica Zelaya MD [facility] DR [place] [address] Encounter for cosmetic procedure Social History Tobacco [...] procedure documented in this encounter Care Teams Cleaner And Dyer Relationship Specialty Start Date End Date Behzad Seals MD PCP - General 06/24/16 documented as of this encounter
--- OUTSIDE RECORDS SUMMARY | 2023-11-19 16:25 | XMS_ITS | Encounter Summary ---
Author Organization [facility] [place] [address] Care Team Providers Care Punchboard Stuffer Name Role Phone Behzad Seals MD Primary Care Provider [phone] Encounter Details Date Type Department Care Team [...] on filedocumented in this encounter Care Teams Punchboard Stuffer Relationship Specialty Start Date End Date Behzad Seals MD PCP - General 06/24/16 documented as of this encounter
--- OUTSIDE RECORDS SUMMARY | 2023-11-19 16:25 | XMS_ITS | Clinical Summary ---
Author Organization [facility] Address [facility] [place] [address] Care Team Providers Care Signal Intelligence/Electronic Warfare Name Role Phone Behzad Seals MD Primary Care Provider [phone] Allergies Active Allergy Reactions Criticality Noted Date [...] - Influenza standard series) 10/11/2023 Care Teams Signal Intelligence/Electronic Warfare Relationship Specialty Start Date End Date Behzad Seals MD PCP - General 06/24/16
--- OUTSIDE RECORDS SUMMARY | 2023-11-19 16:25 | XMS_ITS | Encounter Summary ---
Author Organization [facility] Address [facility] [place] [address] Care Team Providers Care Reserve Operator Name Role Phone Behzad Seals MD Primary Care Provider [phone] Encounter Details Date Type Department Care Team (Late st Contact Info) Description 01/18/2021 2:45 PM EST Office Visit Dermatology at [facility] [address] [place] [address] Yanci Smart MD [facility] [place] [address] Seborrheic keratoses Social History Tobacco Use Types [...] MD. YANCI SMART MD. Section of Dermatology [facility] documented in this encounter Plan of Treatment Not on file documented as of this encounter Visit Diagnoses Diagnosis Seborrheic keratoses documented in this encounter Care Teams Reserve Operator Relationship Specialty Start Date End Date Behzad Seals MD PCP - General 06/24/16 documented as of this encounter
--- OUTSIDE RECORDS SUMMARY | 2023-11-19 16:25 | XMS_ITS | Encounter Summary ---
Author Organization [facility] [address] Care Team Providers Care Acid Mixer Name Role Phone Behzad Seals MD Primary Care Provider [phone] Encounter Details Date Type Department Care Team [...] on filedocumented in this encounter Care Teams Acid Mixer Relationship Specialty Start Date End Date Behzad Seals MD PCP - General 06/24/16 documented as of this encounter
--- OUTSIDE RECORDS SUMMARY | 2023-11-19 16:25 | XMS_ITS | Encounter Summary ---
Author Organization [facility] Address [facility] [place] [address] Care Team Providers Care Specialist Managers Name Role Phone Behzad Seals MD Primary Care Provider [phone] Encounter Details Date Type Department Care Team (Latest Contact Info) Description 08/23/2020 2:45 PM EDT Clinical Support Dermatology at [facility] [address] [place] [address] Blue Valverde MD [facility] DR KENISHA LIZARRAGA[place] [address] Visit for suture removal Social History Tobacco [...] 2. Follow up with referring provider or intelligence chief for skin exams. 3. Follow up with Dr. Valverde as needed. documented in this encounter Plan of Treatment Not on file documented as of this encounter Visit Diagnoses Diagnosis Visit for suture removal Encounter for removal of sutures documented in this encounter Care Teams Specialist Managers Relationship Specialty Start Date End Date Behzad Seals MD PCP - General 06/24/16 documented as of this encounter
--- OUTSIDE RECORDS SUMMARY | 2023-11-19 16:25 | XMS_ITS | Encounter Summary ---
Author Organization [facility] Address [facility] [place] [address] Care Team Providers Care Security Officers And Guards Name Role Phone Behzad Seals MD Primary Care Provider [phone] Encounter Details Date Type Department Care Team (Late st Contact Info) Description 01/07/2023 10:00 AM EST Office Visit Dermatology at [facility] [address] [place] [address] Jessica Zelaya MD [facility] DR [place]IS[place] [address] Encounter for cosmetic procedure Social History Tobacco [...] 1940 Provider: Jessica Zelaya MD. HPI Joesph Orozco is a 82 y.o. year old male. [...] and signed by: Jessica Zelaya MD Dermatology [facility] documented in this encounter Plan of Treatment Not on file documented as of this encounter Visit Diagnoses Diagnosis Encounter for cosmetic procedure documented in this encounter Care Teams Security Officers And Guards Relationship Specialty Start Date End Date Behzad Seals MD PCP - General 06/24/16 documented as of this encounter
--- OUTSIDE RECORDS SUMMARY | 2023-11-19 16:25 | XMS_ITS | Encounter Summary ---
Author Organization [facility] [place] [address] Care Team Providers Care Technical Sales Representatives Name Role Phone Behzad Seals MD Primary Care Provider [phone] Reason for Visit * Reason Comments Skin Cancer Examination Encounter Details Date Type Department Care Team ([facility] st Contact Info) Description 10/08/2020 11:00 AM EDT [facility] [address] [place] [address] Yanci Smart MD [facility] DR KENISHA [place] [address] Seborrheic keratoses; Skin tag; History of basal [...] exam of face only) Last visit at [facility] Derm: 08/08/2020 Last visit with this provider: [...] year for FSE [x] Note routed to assistant secretary [x] Recall placed in scheduling system [] Appointment scheduled before exiting BARBARA Hallman and Sarah Pink have performed the documentation for this encounter inthe presence of and acting as scribes for YANCI SMART MD. I performed the above scribed service and agree with the accuracy of the documentation in this encounter. Reviewed and signed by: YANCI SMART MD Dermatology [facility] documented in this encounter Plan of Treatment Not on file documented as of this encounter Visit Diagnoses Diagnosis Seborrheic keratoses Skin tag Unspecified hypertrophic and atrophic condition of skin History of basal cell carcinoma (BCC) documented in this encounter Care Teams Technical Sales Representatives Relationship Specialty Start Date End Date Behzad Seals MD PCP - General 06/24/16 documented as of this encounter
--- OUTSIDE RECORDS SUMMARY | 2023-11-19 16:25 | XMS_ITS | Encounter Summary ---
Author Organization Count Includes [facility] Address [facility] [place] [address] Care Team Providers Care Document Processor Name Role Phone Behzad Seals MD Primary Care Provider [phone] Encounter Details Date Type Department Care Team (Late st Contact Info) Description 11/19/2021 11:20 AM EDT Office Visit Dermatology at [facility] [address] [place] [address] Jessica Zelaya MD [facility] [address] [place] [address] History of basal cell carcinoma (BCC); Seborrheic [...] a full skin exam. []Note routed to special education secretary [x]Recall placed in scheduling system []Appointment scheduled at checkout Scribe attestation: BARBARA Lim has performed the documentation for this encounter in the presence of and acting as a scribe for Jessica Zelaya MD. I performed the above scribed service and agree with the accuracy of the documentation in this encounter. Reviewed and signed by: Jessica Zelaya MD Dermatology [facility] Patient seen and evaluated with staff home health administrator: Fernando Shah MD Dermatology [facility] * Fernando Shah MD - 11/19/2021 11:20 [...] non-neoplastic documented in this encounter Care Teams Document Processor Relationship Specialty Start Date End Date Behzad Seals MD PCP - General 06/24/16 documented as of this encounter
--- OUTSIDE RECORDS SUMMARY | 2023-11-19 16:25 | XMS_ITS | Encounter Summary ---
Author Organization [facility] Address [facility] [place] [address] Care Team Providers Care Manager Trading Name Role Phone Behzad Seals MD Primary Care Provider [phone] Encounter Details Date Type Department Care Team (Late st Contact Info) Description 10/11/2020 Telephone Dermatology at [facility] [address] [place] [address] Yanci Smart MD [facility] [address] [place] [address] Social History Tobacco Use Types Packs/Day Years [...] on filedocumented in this encounter Care Teams Manager Trading Relationship Specialty Start Date End Date Behzad Seals MD PCP - General 06/24/16 documented as of this encounter
--- OUTSIDE RECORDS SUMMARY | 2023-11-19 16:25 | XMS_ITS | Encounter Summary ---
Author Organization [facility] Address [facility] [place] [address] Care Team Providers Care Instrument Assembler Name Role Phone Behzad Seals MD Primary Care Provider [phone] Encounter Details Date Type Department Care Team (Late st Contact Info) Description 01/07/2023 10:15 AM EST Office Visit Dermatology at [facility] [address] [place] [address] Jessica Zelaya MD [facility] [address] KENIS[address] [place] [address] Actinic keratoses; Superficial basal cell carcinoma (BCC); [...] a full skin exam. []Note routed to school attendance secretary [x]Recall placed in scheduling system []Appointment scheduled at checkout Scribe attestation: Mary Kate Kilpatrick CMA has performed the documentation for this encounter in the presence of and acting as a scribe for Jessica Zelaya MD. I performed the above scribed service and agree with the accuracy of the documentation in this encounter. Reviewed and signed by: Jessica Zelaya MD Dermatology [facility] documented in this encounter Plan of Treatment Not on file documented as of this encounter Visit Diagnoses Diagnosis Actinic keratoses Actinic keratosis Superficial basal cell carcinoma (BCC) Seborrheic keratoses Multiple nevi Benign neoplasm of skin, site unspecified Lentigines Other dyschromia Black angioma Nevus, non-neoplastic Seborrheic dermatitis Seborrheic dermatitis, unspecified History of basal cell carcinoma (BCC) documented in this encounter Care Teams Instrument Assembler Relationship Specialty Start Date End Date Behzad Seals MD PCP - General 06/24/16 documented as of this encounter
--- OUTSIDE RECORDS SUMMARY | 2023-11-19 16:26 | XMS_ITS | Encounter Summary ---
Author Organization [facility] Address [facility] [place] [address] Care Team Providers Care Assembler Trim Name Role Phone Behzad Seals MD Primary Care Provider [phone] Encounter Details Date Type Department Care Team (Late st Contact Info) Description 01/21/2018 Ancillary Procedure Radiology at [address] [address] Social History Tobacco Use Types [...] MR Spine (01/21/2018 12:00 AM EST) Narrative [facility] - 06/21/2018 11:17 AM EDT This exam is auto-finalizing. It's purpose is for storage only. Criss Calle MD IMG FILM LIBRARY OR DERABLES [place], [place] documented in this encounter Visit Diagnoses Not on filedocumented in this encounter Care Teams Assembler Trim Relationship Specialty Start Date End Date Behzad Seals MD PCP - General 06/24/16 documented as of this encounter
--- OUTSIDE RECORDS SUMMARY | 2023-11-19 16:26 | XMS_ITS | Encounter Summary ---
Author Organization [facility] Address [facility] [place] [address] Care Team Providers Care Monogram Maker Name Role Phone Behzad Seals MD Primary Care Provider [phone] Encounter Details Date Type Department Care Team (Late st Contact Info) Description 06/21/2018 11:51 AM EDT Anesthesia Event Operating Room [address] [place] [address] Blue Burgos, AUTOMOTIVE DISMANTLER [address] [place] [address] Anesthesia Record Procedure Summary Procedure Name Responsible Anesthesiologist Anesthesia Start Time Anesthesia Stop Time LAMINECTOMY, FACETECTOMY & FORAMINOTOMY,LUMBAR, ONE LEVEL (WRVU 15.37) (Back) Blue Burgos, AUTOMOTIVE DISMANTLER 06/21/18 1151 06/21/18 1321 Events Date Time [...] cephalic vein (lateral side of arm), left; [id number] catheter system; 22 gauge; Jason Burgos; age-appropriate [...] 1205; metacarpal vein (top of hand), right; [id number]-vbb-[id number] catheter system; 20 gauge; ambrosio; 06/21/18; 1441 [...] Procedure Summary Date: 06/21/18 Room / Location: [facility] MAIN OR Anesthesia Start: 1151 Anesthesia [...] mg documented in this encounter Care Teams Monogram Maker Relationship Specialty Start Date End Date Behzad Seals MD PCP - General 06/24/16 documented as of this encounter
--- OUTSIDE RECORDS SUMMARY | 2023-11-19 16:26 | XMS_ITS | Encounter Summary ---
Author Organization [facility] [place] [address] Care Team Providers Care Payment Rep Name Role Phone Behzad Seals MD Primary Care Provider [phone] Encounter Details Date Type Department Care Team (Late st Contact Info) Description 08/03/2018 Ancillary Procedure Radiology at [facility] [address] [place] [address] Criss Calle MD [address] [facility] [place] [address] Social History Tobacco Use Types Packs/Day Years [...] Calle MD IMG FILM LIBRARY ORDERABLES DH [place], [place] documented in this encounter Visit Diagnoses Not on filedocumented in this encounter Care Teams Payment Rep Relationship Specialty Start Date End Date Behzad Seals MD PCP - General 06/24/16 documented as of this encounter
--- OUTSIDE RECORDS SUMMARY | 2023-11-19 16:26 | XMS_ITS | Encounter Summary ---
Author Organization [facility] Address [facility] [place] [address] Care Team Providers Care Cognos Report Developer Name Role Phone Behzad Seals MD Primary Care Provider [phone] Encounter Details Date Type Department Care Team (Late st Contact Info) Description 06/21/2018 12:00 PM EDT - 06/21/2018 2:50 PM EDT Surgery Operating Room [address] [place] [address] Criss Calle MD [address] [place] [address] LAMINECTOMY, FACETECTOMY & FORAMINOTOMY,LUMBAR, ONE LEVEL (WRVU [...] Calle MD - 06/21/2018 1:29 PM EDT [facility] [place] [address] Patient Name: Joesph Orozco : [id number] MR#: [id number] Case Date: 06/21/2018 Case Scheduled Time: 1200 Surgeon: Surgeon(s) and Role: * Criss Calle MD - Primary * Aparna Parham PA - Physician Latent Print Examiner Preoperative diagnosis: STENOSIS, HNP, SPONDYLOSIS Postoperative diagnosis: [...] OR Use (06/21/2018 4:55 PM EDT) Narrative [facility] - 06/24/2018 1:16 PM EDT This exam is auto-finalizing. No interpretation was done. Criss Calle MD IMG FLUORO BONNIE ALVAREZ Performing Organization Address City/State/[facility] Co de Phone Number [place], [place] * SCAN DOC: ORDS - PROVIDER CARE (05/19/2018 12:00 AM EDT) Narrative 05/19/2018 12:00 AM EDT Ordered by an unspecified provider. Scanning Provider MEDIA MGR SCAN EXT O RDR/RSLT * Film Library- Storage Only MR Spine (01/21/2018 12:00 AM EST) Narrative [facility] - 06/21/2018 11:17 AM EDT This exam is auto-finalizing. It's purpose is for storage only. Criss Calle MD IMG FILM LIBRARY OR DERABLES [place], [place] documented in this encounter Visit Diagnoses [...] Routine documented in this encounter Care Teams Cognos Report Developer Relationship Specialty Start Date End Date Behzad Seals MD PCP - General 06/24/16 documented as of this encounter
--- OUTSIDE RECORDS SUMMARY | 2023-11-19 16:26 | XMS_ITS | Encounter Summary ---
Author Organization [facility] Address [facility] [place] [address] Care Team Providers Care Cash Specialist Name Role Phone Behzad Seals MD Primary Care Provider [phone] Encounter Details Date Type Department Care Team (Latest Contact Info) Description 06/21/2018 10:56 AM EDT - 06/21/2018 2:43 PM EDT Hospital Encounter Post Acute Care Unit at [facility] [address] [place] [address] Criss Calle MD [address] [facility] [place] [address] Spinal stenosis, lumbar region, with neurogenic claudication [...] 11:30 AM EDT Patient Name: Joesph VARNERN: [id number] Patient Age: 78 y.o. Birthdate: 1940 Admit date: 06/21/2018 Attending Physician: Criss Calle MD Please see scanned document. Pre-op H&P reviewed. No changes noted today. documented in this encounter Miscellaneous Notes * Op Note - Criss Calle MD - 06/21/2018 1:29 PM EDT [facility] [place] [address] Patient Name: Joesph Orozco : [id number] MR#: [id number] Case Date: 06/21/2018 Case Scheduled Time: 1200 Surgeon: Surgeon(s) and Role: * Criss Calle MD - Primary * Aparna Parham PA - Physician Performance Improvement Coordinator Preoperative diagnosis: STENOSIS, HNP, SPONDYLOSIS Postoperative diagnosis: [...] Criss Calle MD IMG FLUORO BONNIE ALVAREZ [place], [place] * SCAN DOC: ORDS - PROVIDER [...] MD IMG FILM LIBRARY OR DERABLES DH [place], [place] documented in this encounter Visit Diagnoses [...] Routine documented in this encounter Care Teams Cash Specialist Relationship Specialty Start Date End Date Behzad Seals MD PCP - General 06/24/16 documented as of this encounter
--- OUTSIDE RECORDS SUMMARY | 2023-11-19 16:26 | XMS_ITS | Encounter Summary ---
Author Organization [facility] Address [facility] [place] [address] Care Team Providers Care Transmission And Coordination Engineer Name Role Phone Behzad Seals MD Primary Care Provider [phone] Encounter Details Date Type Department Care Team (Late st Contact Info) Description 06/15/2018 3:00 PM EDT Telephone Pre-Admission Testing at [facility] [place] [address] Social History Tobacco Use Types Packs/Day Years [...] on filedocumented in this encounter Care Teams Transmission And Coordination Engineer Relationship Specialty Start Date End Date Behzad Seals MD PCP - General 06/24/16 documented as of this encounter
--- OUTSIDE RECORDS SUMMARY | 2023-11-19 16:26 | XMS_ITS | Encounter Summary ---
Author Organization [facility] Address [address] [place] [address] Care Team Providers Care Windows Systems Architect Name Role Phone Unavailable Primary Care Provider Unavailabl e Encounter Details Date Type Department Care Team (Late st Contact Info) Description 10/12/2021 Lab Requisition [facility] Pathology & Laboratory Medicine - [facility] [address] [place] [address] Outr Resulting Lab, Provider Social History Tobacco [...] C Antibody Negative Negative 10/14/2021 9:24 EDT [facility] Blood VENOUS BLOOD / Unknown 10/11/2021 14:55 EDT 10/13/2021 16:45 EDT Provider Outr Resulting Lab CHEMISTRY & BLOOD GAS ORDERABLES [facility] [address] [place] [address] documented in this encounter Visit Diagnoses Not on filedocumented in this encounter
--- OUTSIDE RECORDS SUMMARY | 2023-11-19 16:26 | XMS_ITS | Encounter Summary ---
Author Organization [facility] Address [facility] [place] [address] Care Team Providers Care Family Manager Name Role Phone Behzad Seals MD Primary Care Provider [phone] Reason for Visit * Reason Comments Procedure * Consultation (Routine) - Closed Specialty Diagnoses / Procedures Referred By Contac t Referred To Contact Dermatology Diagnoses Basal cell carcinoma (BCC) of skin of nose Yanci Smart MD [facility] [address] [place] [address] Blue Valverde MD [facility] DR [place] [address] Referral ID Status Reason Start Date Expiration Date V isits Requested Visits Authorized [id number] Closed Consult, Test & Treat 08/08/2020 08/08/2021 1 1 Encounter Details Date Type Department Care Team (Latest Contact Info) Description 08/16/2020 10:00 AM EDT Procedure visit Dermatology at [facility] [address] [place] [address] Blue Valverde MD [facility] DR [place] [address] Prophylactic antibiotic; Basal cell carcinoma of left [...] until your sutures are removed. 5. Some aerial photogrammetrist may need to be delayed or delegated [...] as often as is recommended by your investment trader, for new skin cancers. This is once [...] it. If after hours, please call the refinery operator reforming unit or [phone] and ask for the investment trader on-call. If you have any non-urgent questions or concerns, please feel free to call my office or contact me through our patient portal, [email or web address], at [email or web address] How to contact us during business hours Dermatology at [facility] [address]: Mohs scheduling or Mohs follow-up appointments: [phone] documented in this encounter Progress Notes * [...] and follow up with his or her investment trader or other skin provider. 6. Discussed avoiding [...] Reviewed and signed by: Blue Valverde Dermatology [facility] * Blue Valverde MD - 08/16/2020 10:00 [...] Surgery and Dermatologic Oncology Department of Dermatology [address] [place] [address] Mohs micrographic Surgery Operative Report Site #1 - left nasal dorsum Patient name: Joesph Orozco : 1940 Date: 08/16/2020 Staff Surgeon: Blue Valverde MD PhD Nursing/Shrimp Header(s): Belinda Fields RN, Yuliya Ryan CMA, Gema BonillaChad QUALITY INSPECTOR, Erik Pierce CMA Animal Warden (s): Negrita Ward Pre-operative diagnosis: basal cell [...] The site was confirmed with the patient/authorized sales representative cash registers/referring physician and/or a photograph form time of [...] Surgery and Dermatologic Oncology Department of Dermatology [address] [place] [address] Frozen Biopsy Procedure: Skin biopsy by shave [...] Surgery and Dermatologic Oncology Department of Dermatology [address] [place] [address] Mohs micrographic Surgery Operative Report Site #2 - right nasal root Patient name: Joesph Orozco : 1940 Date: 08/16/2020 Staff Surgeon: Blue Valverde MD PhD Nursing/Shrimp Header(s): Belinda Fields RN, Yuliya Ryan CMA, Gema Hamilton LPN, Erik Pierce CMA Animal Warden (s): Negrita Ward Pre-operative diagnosis: Basal Cell [...] The site was confirmed with the patient/authorized sales representative cash registers/referring physician and/or a photograph form time of [...] Surgery and Dermatologic Oncology Department of Dermatology [address] [place] [address] Repair Report (Flap) Patient name: Joesph Brock Orozco Staff Surgeon: Blue Valverde MD PhD Liner Replacer(s): same as above banking assistant: Belinda Fields RN, Florence Garza MD Date: 08/16/2020 Clinical Diagnosis: skin and soft tissue defect status post Mohs micrographic surgery Location/Site: combined closure of left nasal dorsum and right nasal root Indication: repair of wound with mormonism of anatomy/function Defect size to be repaired: [...] Surgery and Dermatologic Oncology Department of Dermatology [address] [place] [address] Note initiated by Belinda Fields RN. Belinda Fields RN has performed the documentation for this encounter in the presence of and acting as a scribe for Dr. Valverde I performed the above scribed service and agree with the accuracy of the documentation in this encounter. Reviewed and signed by: Blue Valverde Dermatology [facility] documented in this encounter [...] face documented in this encounter Care Teams Family Manager Relationship Specialty Start Date End Date Behzad Seals MD PCP - General 06/24/16 documented as of this encounter
--- OUTSIDE RECORDS SUMMARY | 2023-11-19 16:26 | XMS_ITS | Encounter Summary ---
Author Organization [facility] Address [facility] [place] [address] Care Team Providers Care Cane Flume Feeding Machine Operator Name Role Phone Behzad Seals MD Primary Care Provider [phone] Reason for Visit * Reason Comments Procedure Encounter Details Date Type Department Care Team (Latest Contact Info) Description 08/16/2020 9:45 AM EDT Clinical Support Dermatology at [facility] [address] [place] [address] Blue Valverde MD [facility] DR [address]EN[place] [address] Basal cell carcinoma of left side of [...] face documented in this encounter Care Teams Cane Flume Feeding Machine Operator Relationship Specialty Start Date End Date Behzad Seals MD PCP - General 06/24/16 documented as of this encounter
--- OUTSIDE RECORDS SUMMARY | 2023-11-19 16:26 | XMS_ITS | Encounter Summary ---
Author Organization [facility] Address [facility] [place] [address] Care Team Providers Care Fish Checker Name Role Phone Behzad Seals MD Primary Care Provider [phone] Encounter Details Date Type Department Care Team (Late st Contact Info) Description 06/21/2018 2:00 PM EDT Ancillary Procedure Radiology Xray at [facility] [place] [address] Social History Tobacco Use Types Packs/Day Years [...] Criss Calle MD IMG FLUORO KULWINDERA JALENS [place], [place] documented in this encounter Visit Diagnoses Not on filedocumented in this encounter Care Teams Fish Checker Relationship Specialty Start Date End Date Behzad Seals MD PCP - General 06/24/16 documented as of this encounter
--- OUTSIDE RECORDS SUMMARY | 2023-11-19 16:26 | XMS_ITS | Clinical Summary ---
Author Organization [facility] Address [address] [place] [address] Care Team Providers Care Prosthetics Technician Name Role Phone Unavailable Primary Care [...] 2002 Fall Risk Screening 2007 COVID-19 Vaccine ( season) 2022
--- OUTSIDE RECORDS SUMMARY | 2023-11-19 16:26 | XMS_ITS | Encounter Summary ---
Author Organization [facility] Address [address] [place] [address] Care Team Providers Care Children Teacher Name Role Phone Unavailable Primary Care Provider Unavailabl e Encounter Details Date Type Department Care Team (Late st Contact Info) Description 02/21/2021 Lab Requisition [facility] Pathology & Laboratory Medicine - [facility] [address] [place] [address] Outr Resulting Lab, Provider Social History Tobacco [...] Priority Date/Time Associated Diagnosis Comments ZZCOVID-19 TEST [facility] PCR Today 02/20/2021 16:40 EST COVID-19 TESTING Routine 02/20/2021 16:4 0 EST documented in this encounter Results * COVID-19 TEST [facility] PCR (02/20/2021 16:40 EST) Swab 02/20/2021 16:4 0 EST 02/21/2021 17:18 EST Provider Outr Resulting Lab MICROBIOLOGY - GENERAL ORDERABLES [facility] [address] [place] [address] * COVID-19 TESTING (02/20/2021 16:40 EST) COVID-19 rt-PCR Result Negative Negative 02/22/2021 14:44 EST [facility] Comment: This test has not [...] developed and its performance characteristics determined by [facility]. It has not been cleared or approved [...] defined by the FDA Performed on the Multispectral Imagingo 7 Flex RT-PCR System. Performing Lab [facility] 02/22/2021 14:44 EST [facility] Swab 02/20/2021 16:4 0 EST 02/21/2021 17:18 EST Provider Outr Resulting Lab MICROBIOLOGY - GENERAL ORDERABLES [facility] [address] [place] [address] documented in this encounter Visit Diagnoses Not on filedocumented in this encounter
--- OUTSIDE RECORDS SUMMARY | 2023-11-19 16:26 | XMS_ITS | Encounter Summary ---
Author Organization [facility] [place] [address] Care Team Providers Care Ota Name Role Phone Jimbo Hector MD Primary Care Provider [phone] Reason for Visit * Reason Comments Skin Check Encounter Details Date Type Department Care Team (Late st Contact Info) Description 05/05/2014 2:15 PM EDT Office Visit Dermatology at [address] [place] [address] Lei Jurado MD [address] [place] [address], [place] [address] Seborrheic keratosis; Nevus Discharge Disposition: Home Social [...] from the original note were not included. [facility] Actinic Keratosis: After Your Visit Your [...] more? Visit our health information library at [email or web address] You can also view health information on [employer], your personal patient account. Log in or sign up today. Enter L364 in the search box to learn more about Actinic Keratosis: After Your Visit. ?? [id number] [employer]. Care instructions adapted under license by [facility]. This care instruction is for use with your licensed healthcare professional. If you have questions about a medical condition or this instruction, always ask your healthcare professional. [employer] disclaims any warranty or liability for your use of this information. Content Version: 10.9.291926; Current as of: September 08, 2013 [facility] Actinic Keratosis: After Your Visit Your [...] more? Visit our health information library at [email or web address] You can also view health information on [email or web address], your personal patient account. Log in or sign up today. Enter L364 in the search box to learn more about Actinic Keratosis: After Your Visit. ?? [id number] [employer]. Care instructions adapted under license by [facility]. This care instruction is for use with your licensed healthcare professional. If you have questions about a medical condition or this instruction, always ask your healthcare professional. [employer] disclaims any warranty or liability for your use of this information. Content Version: 10.3.552221; Current as of: September 08, 2013 documented [...] years ago when they still lived in [place]. Physical examination reveals a pleasant 74-year-old gentleman [...] unspecified documented in this encounter Care Teams Ota Relationship Specialty Start Date End Date Jimbo Hector MD [facility] [address] [place] [address] PCP - General 10/21/13 06/23/16 documented as of this encounter
--- OUTSIDE RECORDS SUMMARY | 2023-11-19 16:26 | XMS_ITS | Referral Summary ---
Author Organization [facility] Address [address] [place] [address] Care Team Providers Care Mechanical Assembly Name Role Phone Unavailable Primary Care Provider Unavailabl e Social History Tobacco Use Types Packs/Day Years Used Date Smoking Tobacco: Never Assessed Sex and Gender Information Value Date Recorded Sex Assigned at Not on file Gender Identity Not on file Sexual Orientation Not on file Plan of Treatment Not on file
--- OUTSIDE RECORDS SUMMARY | 2023-11-19 16:26 | XMS_ITS | Encounter Summary ---
Author Organization [facility] Address [facility] [place] [address] Care Team Providers Care Senior Corporate Accountant Name Role Phone Behzad Seals MD Primary Care Provider [phone] Reason for Referral * Consultation (Routine) - Closed Specialty Diagnoses / Procedures Referred By Contandrew t Referred To Contact Dermatology Diagnoses Basal cell carcinoma (BCC) of skin of nose Yanci Smart MD [facility] [address] [place] [address] Blue Valverde MD [facility] [address] [place] [address] Referral ID Status Reason Start Date Expiration Date V isits Requested Visits Authorized [id number] Closed Consult, Test & Treat 08/08/2020 08/08/2021 1 1 Reason for Visit * Reason Comments Skin Lesion Encounter Details Date Type Department Care Team (Late st Contact Info) Description 08/08/2020 3:15 PM EDT Office Visit Dermatology at [facility] [address] [place] [address] Yanci Smart MD [facility] [address] [place] [address] Basal cell carcinoma (BCC) of skin of [...] [] Follow up [x] Note routed to corporate legal secretary to schedule [] Recall placed in scheduling system [] Appointment scheduled before exiting If any questions or concerns arise, patient is welcome to return to clinic sooner. Sarah Pink and Tammie Blackburn [facility] have performed the documentation for this encounter inthe presence of and acting as scribes for YANCI SMART MD. I performed the above scribed service and agree with the accuracy of the documentation in this encounter. Reviewed and signed by: YANCI SMART MD Department of Dermatology [facility] documented in this encounter Plan of Treatment Scheduled Referrals Name Type Priority Associated Diagnoses Order Schedule Referral to Dermatology Outpatient Referral Routine Basal cell carcinoma (BCC) of skin of nose Ordered: 08/08/2020 documented as of this encounter Visit Diagnoses Diagnosis Basal cell carcinoma (BCC) of skin of nose documented in this encounter Care Teams Senior Corporate Accountant Relationship Specialty Start Date End Date Behzad Seals MD PCP - General 06/24/16 documented as of this encounter
--- OUTSIDE RECORDS SUMMARY | 2023-11-19 16:26 | XMS_ITS | Encounter Summary ---
Author Organization [facility] Address [address] [place] [address] Care Team Providers Care Oil Pipeline Dispatcher Name Role Phone Unavailable Primary Care Provider Unavailabl e Encounter Details Date Type Department Care Team (Late st Contact Info) Description 05/08/2021 Lab Requisition [facility] Pathology & Laboratory Medicine - [facility] [address] [place] [address] Outr Resulting Lab, Provider Social History Tobacco [...] Lyme Ab Negative Negative 05/09/2021 10:14 EDT [facility] Blood VENOUS BLOOD / Unknown 05/08/2021 13:11 EDT 05/08/2021 21:22 EDT Provider Outr Resulting Lab IMMUNOLOGY A ND SEROLOGY ORDERABLES [facility] [address] [place] [address] documented in this encounter Visit Diagnoses Not on filedocumented in this encounter
== END 2023-11-19 16:44 ==
LOC: DI 16:24
PROVIDERS: PCP Family Medicine; Visit Provider Physician Assistant Medical
DX: S62.514D Nondisplaced fracture of proximal phalanx of right thumb, subsequent encounter for fracture with routine healing (principal); X58.XXXD Exposure to other specified factors, subsequent encounter
CPT/HCPCS: 73140

== ENCOUNTER 2024-08-15 18:04 | Outpatient (CLI) | payer MEDICARE, OTHER, SELFPAY ==
[2024-08-15 21:22] LABS: Abs Immature Grans 0.01 10^3/uL (0.0-0.06); HCT 45.6 % (40.0-50.0); HGB 15.4 g/dL (13.5-17.5); Immature Grans % 0.1 %; MCH 31.0 pg (27.0-33.0); MCHC 33.8 % (32.0-36.0); MCV 92 fL (80-95); MPV 9.6 fL (8.0-11.0); Platelet Count 304 10^3/uL (130-400); RBC 4.97 10^6/uL (4.36-5.78); RDW 12.3 % (11.8-14.1); RDW-SD 41.2 fL; WBC 8.93 10^3/uL (4.4-10.8)
[2024-08-15 21:40] LABS: Uric Acid 6.3 mg/dL (3.5-7.2)
[2024-08-15 21:42] LABS: C-Reactive Protein < 0.50 mg/dL (<or=0.5)
[2024-08-17 11:27] LABS: Lyme Ab w Rflx to Lyme Confirm Negative (Negative)
== END 2024-08-15 18:05 | disposition home or self-care (01) ==
LOC: DI 18:05 → LBN 21:09
PROVIDERS: PCP Family Medicine; Visit Provider Nurse Practitioner Family
DX: M25.471 Effusion, right ankle (principal)
CPT/HCPCS: 84550; 85025; 86140; 86618

== ENCOUNTER 2024-08-17 10:12 | Outpatient (CLI) | payer MEDICARE, OTHER, SELFPAY ==
--- NOTE | 2024-08-17 | DI.RAD_ITS ---
Exam(s) XR FOOT RT COMPLETE EXAM: XR FOOT RT COMPLETE CLINICAL HISTORY: M25.471 Effusion RT ankle, Swelling of ankle. TECHNIQUE: 2D digital imaging was performed. Three views. COMPARISON: No exams were available for comparison FINDINGS: BONES: No acute fracture is present. No bony destructive lesion is seen. JOINTS: No dislocation present. Mild degenerative changes of the 1st MTP joint. Hammertoe deformities. SOFT TISSUE: Swelling. IMPRESSION: Mild degenerative changes and soft tissue swelling. DATA REPOSITORY: RADIATION DOSE DELIVERED:
--- NOTE | 2024-08-17 | DI.RAD_ITS ---
Exam(s) XR ANKLE RT COMPLETE EXAM: XR ANKLE RT COMPLETE CLINICAL HISTORY: M25.471 Effusion RT ankle, Swelling of ankle. TECHNIQUE: 2D digital imaging was performed. Three views. COMPARISON: CR RIGHT ANKLE COMPLETE from 07/23/2017 FINDINGS: BONES: No acute fracture is present. No bony destructive lesion is seen. JOINTS: The ankle mortise is normally aligned. The joint space is maintained. Mild periarticular spurring. SOFT TISSUE: Diffuse soft tissue swelling around the ankle. No foreign body or gas collection. Vascular calcifications. IMPRESSION: Marked soft tissue swelling. DATA REPOSITORY: RADIATION DOSE DELIVERED:
== END 2024-08-17 10:32 ==
PROVIDERS: PCP Family Medicine; Visit Provider Nurse Practitioner Family
DX: M25.471 Effusion, right ankle (principal)
CPT/HCPCS: 36415; 73610; 73630; 85379; 93226

== ENCOUNTER 2024-08-17 17:04 | Outpatient (CLI) | payer MEDICARE, OTHER, SELFPAY ==
[2024-08-17 16:27] LABS: D-Dimer 724 ng/mlFEU (<500)
== END 2024-08-17 17:05 | disposition home or self-care (01) ==
LOC: LBO 17:05
PROVIDERS: PCP Family Medicine; Visit Provider Nurse Practitioner Family
DX: M79.89 Other specified soft tissue disorders (principal)
CPT/HCPCS: 36415; 85379

== ENCOUNTER 2024-08-31 15:29 | Outpatient (REF) | payer MEDICARE, OTHER, SELFPAY ==
[2024-08-31 17:16] LABS: ESR 9 mm/hr (0-20)
[2024-08-31 17:17] LABS: Abs Immature Grans 0.01 10^3/uL (0.0-0.06); HCT 46.1 % (40.0-50.0); HGB 15.8 g/dL (13.5-17.5); Immature Grans % 0.1 %; MCH 31.2 pg (27.0-33.0); MCHC 34.3 % (32.0-36.0); MCV 91 fL (80-95); MPV 9.7 fL (8.0-11.0); Platelet Count 306 10^3/uL (130-400); RBC 5.07 10^6/uL (4.36-5.78); RDW 12.0 % (11.8-14.1); RDW-SD 40.0 fL; WBC 8.48 10^3/uL (4.4-10.8)
[2024-08-31 17:29] LABS: Anion Gap 7.2 mmol/L (3-11); BUN 16 mg/dL (7-18); C-Reactive Protein < 0.50 mg/dL (<or=0.5); CO2 32.8 mmol/L (21.0-32.0); Calcium 9.3 mg/dL (8.5-10.1); Chloride 103 mmol/L (98-107); Estimated GFR 88.36 (mL/min/1.73m2); Glucose 111 mg/dL (74-106); Magnesium 1.8 mg/dL (1.8-2.4); Potassium 3.5 mmol/L (3.5-5.1); Sodium 143 mmol/L (136-145)
== END 2024-08-31 15:30 | disposition home or self-care (01) ==
LOC: NCHCN 15:29
PROVIDERS: PCP Family Medicine; Visit Provider Student in an Organized Health Care Education/Training Program
DX: M79.671 Pain in right foot (principal); I10 Essential (primary) hypertension
CPT/HCPCS: 80048; 85652; 83735; 85025; 86140